=== PATIENT | male | born 1955 | race Caucasian/White ===

== ENCOUNTER 2018-10-24 10:25 | Inpatient (IN) | payer MEDICAID ==
[~2018-10-24] VITALS: Ht 193 cm; Wt 100.7 kg
--- NOTE | 2018-10-24 10:31 | NUR ---
BIB [facility]. Pt extremely tremulous. Reports last drink of alcohol yesterday. Nl intake 12pk beer/daily. +nausea & anxiety. Hx withdrawal sz. Sz precautions IP,cardiac, NIbP & Spo2 monitors & IV NSL placed.
[2018-10-24] MEDS ORDERED: SODIUM CHLORIDE 0.9% 1,000 ML IV ONE (10:45)
[2018-10-24] MEDS ORDERED: LORazepam 2 MG/ML, 1ML ONE (10:46)
[2018-10-24] MEDS: LORazepam 2 MG/ML, 1ML IVPush PRN ×3 (10:54→22:39)
--- NOTE | 2018-10-24 10:54 | NUR ---
Ativan IV given as per emar.
[2018-10-24] MEDS ORDERED: THIAMINE 100 MG in SODIUM CHLORIDE 0.9% 50 ML IVPB ONE (11:00)
[2018-10-24] MEDS ORDERED: SODIUM CHLORIDE FLUSH 10ML SYR IVF ONE (11:00)
--- NOTE | 2018-10-24 11:29 | NUR ---
Tremors improved. Pt sleeping & oxygen saturations during rest in 80's. Placed on nasal cannula to maintain >94%
[2018-10-24 11:34] LABS: BASOPHILS # (AUTO) 0.15 x10^3/uL (0-0.1); BASOPHILS % (AUTO) 2 % (0-1); EOSINOPHILS # (AUTO) 0.04 x10^3/uL (0-0.4); EOSINOPHILS % (AUTO) 0 % (1-7); LYMPHOCYTES % (AUTO) 17 % (22-44); MD NO; MEAN CORPUSCULAR HGB CONC 33.7 g/dL (33.2-36.2); MEAN CORPUSCULAR VOLUME 94.7 fL (81-97); MEAN PLATELET VOLUME 8.2 fL (7.4-10.4); MONOCYTES # (AUTO) 0.51 x10^3/uL (0.2-0.8); MONOCYTES % (AUTO) 6 % (2-9); NEUTROPHILS # (AUTO) 6.82 x10^3/uL (1.8-6.8); NEUTROPHILS % (AUTO) 76 % (42-75); PLATELET COUNT 163 x10^3/uL (130-400); RED BLOOD COUNT 4.77 x10^6/uL (4.38-5.82); RED CELL DISTRIBUTION WIDTH 13.9 % (9.4-14.8)
[2018-10-24 11:40] LABS: ALANINE AMINOTRANSFERASE 41 U/L (12-78); ALBUMIN 3.5 g/dL (3.4-5.0); ANION GAP 12 mmol/L (5-15); CALCIUM 8.3 mg/dL (8.5-10.1); CHLORIDE 98 mmol/L (98-107); CREATININE 0.69 mg/dL (0.7-1.3)
[2018-10-24 11:41] LABS: ALKALINE PHOSPHATASE 166 U/L (45-117); BILIRUBIN,TOTAL 1.2 mg/dL (0.2-1.0); TOTAL PROTEIN 7.5 g/dL (6.4-8.2)
[2018-10-24] MEDS ORDERED: CHLORDIAZEPOXIDE 25 MG CAPSULE PO ONE (12:00)
[2018-10-24] MEDS ORDERED: CHLORDIAZEPOXIDE 25 MG CAPSULE ONE (12:11)
--- NOTE | 2018-10-24 12:18 | NUR ---
po librium given, pt is still tremulous when reaching for items, but improved from arrival. VSS.
[2018-10-24] MEDS ORDERED: DIAZEPAM 5 MG/ML, 2ML IV ONE (12:30)
--- NOTE | 2018-10-24 13:13 | NUR ---
Report to MAILE Decker tele 2.
[2018-10-24 14:00] VITALS: BP 136/88
[2018-10-24] MEDS ORDERED: LORazepam 2 MG/ML, 1ML IVPush ONE (14:30)
[2018-10-24] MEDS ORDERED: ONDANSETRON 2MG/ML, 2ML IVPush PRN (14:30)
[2018-10-24] MEDS ORDERED: ACETAMINOPHEN 325 MG TABLET PO PRN (14:30)
[2018-10-24] MEDS ORDERED: LORazepam 2 MG/ML, 1ML IVPush PRN (14:30)
[2018-10-24] MEDS: GABAPENTIN 100 MG CAPSULE PO SCH ×3 (14:44→20:29)
[2018-10-24] MEDS ORDERED: MAGNESIUM SULFATE PMX 2GM/50ML 50 ML IV ONE (15:00)
[2018-10-24] MEDS: POTASSIUM CHLORIDE 20 MEQ, MAGNESIUM SULFATE 1 GM, THIAMINE 200 MG, FOLIC ACID 1 MG, MV... IV SCH (15:58)
[2018-10-24] MEDS ORDERED: ASPI-515 PO (18:01)
[2018-10-24] MEDS ORDERED: METO-93 PO (18:01)
[2018-10-24 20:08] VITALS: BP 156/93
[2018-10-24] MEDS: CHLORDIAZEPOXIDE 25 MG CAPSULE PO SCH (20:29)
[2018-10-24] MEDS: SODIUM CHLORIDE 0.9% 1,000 ML IV SCH (22:41)
[2018-10-25] VITALS (10 sets, daily range): BP systolic 145–190; BP diastolic 83–114
[2018-10-25] MEDS: LABETALOL 5 MG/ML SYRINGE IVPush PRN ×2 (01:58→09:37)
[2018-10-25] MEDS: LORazepam 2 MG/ML, 1ML IVPush PRN ×6 (02:01→17:04)
[2018-10-25 05:35] LABS: BASOPHILS # (AUTO) 0.04 x10^3/uL (0-0.1); BASOPHILS % (AUTO) 1 % (0-1); EOSINOPHILS # (AUTO) 0.09 x10^3/uL (0-0.4); EOSINOPHILS % (AUTO) 1 % (1-7); LYMPHOCYTES # (AUTO) 0.91 x10^3/uL (1-3.4); LYMPHOCYTES % (AUTO) 13 % (22-44); MD NO; MEAN CORPUSCULAR HEMOGLOBIN 32.6 pg (27.5-34.5); MEAN CORPUSCULAR HGB CONC 33.8 g/dL (33.2-36.2); MEAN CORPUSCULAR VOLUME 96.2 fL (81-97); MEAN PLATELET VOLUME 8.5 fL (7.4-10.4); MONOCYTES # (AUTO) 0.44 x10^3/uL (0.2-0.8); MONOCYTES % (AUTO) 6 % (2-9); NEUTROPHILS # (AUTO) 5.62 x10^3/uL (1.8-6.8); NEUTROPHILS % (AUTO) 79 % (42-75); PLATELET COUNT 110 x10^3/uL (130-400); RED BLOOD COUNT 4.12 x10^6/uL (4.38-5.82); RED CELL DISTRIBUTION WIDTH 14.1 % (9.4-14.8)
[2018-10-25 05:45] LABS: CHLORIDE 103 mmol/L (98-107)
[2018-10-25 06:05] LABS: ANION GAP 7 mmol/L (5-15); CREATININE 0.62 mg/dL (0.7-1.3)
[2018-10-25] MEDS: GABAPENTIN 100 MG CAPSULE PO SCH ×4 (06:31→19:34)
[2018-10-25] MEDS: SODIUM CHLORIDE 0.9% 1,000 ML IV SCH ×2 (06:31→21:30)
[2018-10-25] MEDS: CHLORDIAZEPOXIDE 25 MG CAPSULE PO SCH ×3 (07:41→19:34)
[2018-10-25] MEDS: NICOTINE 14MG/24 HR PATCH.TD24 TD SCH (13:30)
[2018-10-25] MEDS: POTASSIUM CHLORIDE 20 MEQ, MAGNESIUM SULFATE 1 GM, THIAMINE 200 MG, FOLIC ACID 1 MG, MV... IV SCH (13:50)
[2018-10-25] MEDS: hydrALAzine 20 MG/ML, 1ML IVPush PRN (20:36)
[2018-10-26] VITALS (12 sets, daily range): BP systolic 124–215; BP diastolic 74–133
[2018-10-26] MEDS: LABETALOL 5 MG/ML SYRINGE IVPush PRN ×2 (01:31→23:40)
[2018-10-26] MEDS: hydrALAzine 20 MG/ML, 1ML IVPush PRN (02:48)
[2018-10-26] MEDS: LORazepam 2 MG/ML, 1ML IVPush PRN ×3 (03:27→23:18)
[2018-10-26] MEDS: SODIUM CHLORIDE 0.9% 1,000 ML IV SCH (05:20)
[2018-10-26] MEDS: GABAPENTIN 100 MG CAPSULE PO SCH ×4 (05:21→20:00)
[2018-10-26] MEDS: METOPROLOL SUCCINATE 50 MG TAB.ER.24H PO SCH (05:21)
[2018-10-26] MEDS: CHLORDIAZEPOXIDE 25 MG CAPSULE PO SCH ×3 (08:49→20:00)
[2018-10-26 09:04] LABS: ALANINE AMINOTRANSFERASE 44 U/L (12-78); ANION GAP 7 mmol/L (5-15); CALCIUM 8.1 mg/dL (8.5-10.1); CHLORIDE 105 mmol/L (98-107); CREATININE 0.49 mg/dL (0.7-1.3)
[2018-10-26 09:06] LABS: ALKALINE PHOSPHATASE 156 U/L (45-117); BILIRUBIN,TOTAL 0.7 mg/dL (0.2-1.0); TOTAL PROTEIN 6.5 g/dL (6.4-8.2)
[2018-10-26] MEDS ORDERED: LABETALOL 5MG/ML, 20ML IVPush PRN (10:30)
[2018-10-26] MEDS ORDERED: ENALAPRILAT 1.25 MG/ML, 2ML IVPush PRN (10:30)
[2018-10-26] MEDS ORDERED: hydrALAzine 20 MG/ML, 1ML IVPush PRN (10:30)
[2018-10-26] MEDS: NICOTINE 14MG/24 HR PATCH.TD24 TD SCH (10:38)
[2018-10-26] MEDS: POTASSIUM CHLORIDE 20 MEQ, MAGNESIUM SULFATE 1 GM, THIAMINE 200 MG, FOLIC ACID 1 MG, MV... IV SCH (14:38)
[2018-10-26] MEDS: LISINOPRIL 10 MG TABLET PO SCH (20:00)
[2018-10-26] MEDS: THIAMINE 100MG TABLET PO SCH (20:00)
[2018-10-26] MEDS: ENALAPRILAT 1.25 MG/ML, 2ML IVPush PRN (20:01)
[2018-10-27] VITALS (7 sets, daily range): BP systolic 142–187; BP diastolic 79–108
[2018-10-27] MEDS: LORazepam 2 MG/ML, 1ML IVPush PRN (01:49)
[2018-10-27] MEDS: ENALAPRILAT 1.25 MG/ML, 2ML IVPush PRN (02:35)
[2018-10-27] MEDS ORDERED: LABETALOL 5 MG/ML SYRINGE IVPush PRN (04:00)
[2018-10-27] MEDS: GABAPENTIN 100 MG CAPSULE PO SCH ×4 (05:10→20:50)
[2018-10-27] MEDS: METOPROLOL SUCCINATE 50 MG TAB.ER.24H PO SCH (05:10)
[2018-10-27] MEDS: CHLORDIAZEPOXIDE 25 MG CAPSULE PO SCH ×3 (08:52→20:50)
[2018-10-27] MEDS: THIAMINE 100MG TABLET PO SCH ×2 (08:52→20:50)
[2018-10-27] MEDS: NICOTINE 14MG/24 HR PATCH.TD24 TD SCH (08:53)
[2018-10-27] MEDS: LISINOPRIL 10 MG TABLET PO SCH ×2 (08:53→20:50)
[2018-10-27] MEDS ORDERED: THIA100T67 PO (13:53)
[2018-10-27] MEDS ORDERED: LISI-167 PO ×2 (13:53)
[2018-10-27] MEDS ORDERED: LORazepam 1MG TABLET PO PRN (15:30)
[2018-10-28 02:00] VITALS: BP 187/103
[2018-10-28] MEDS: ENALAPRILAT 1.25 MG/ML, 2ML IVPush PRN (02:08)
[2018-10-28 03:09] VITALS: BP 173/90
[2018-10-28 04:59] VITALS: BP 160/83
[2018-10-28] MEDS: GABAPENTIN 100 MG CAPSULE PO SCH ×2 (05:40→09:13)
[2018-10-28] MEDS: METOPROLOL SUCCINATE 50 MG TAB.ER.24H PO SCH (05:40)
[2018-10-28 07:20] VITALS: BP 183/90
[2018-10-28] MEDS ORDERED: LISINOPRIL 20 MG TABLET PO SCH (09:00)
[2018-10-28] MEDS ORDERED: AMLODIPINE 10 MG TAB PO SCH (09:00)
[2018-10-28] MEDS: CHLORDIAZEPOXIDE 25 MG CAPSULE PO SCH (09:14)
[2018-10-28] MEDS: NICOTINE 14MG/24 HR PATCH.TD24 TD SCH (09:15)
[2018-10-28] MEDS: THIAMINE 100MG TABLET PO SCH (09:15)
[2018-10-28 11:48] VITALS: BP 150/89
[2018-10-28] MEDS ORDERED: AMLO10TA8 PO (12:20)
[2018-10-28] MEDS ORDERED: LISI-170 PO (13:18)
== END 2018-10-28 13:54 | DRG 897 ==
LOC: ED 11:30 → EDIP 12:51 → 4WST 13:54
PROVIDERS: ADMIT Hospitalist; ATTEND Hospitalist
DX: F10.239 Alcohol dependence with withdrawal, unspecified (principal); E87.1 Hypo-osmolality and hyponatremia; E83.42 Hypomagnesemia; I10 Essential (primary) hypertension; Z91.19 Patient's noncompliance with other medical treatment and regimen; F10.10 Alcohol abuse, uncomplicated
CPT/HCPCS: 36415; 80048; 80053; 80307; 82140; 83735; 84100; 84443; 85025; 96374; 99285; G0378; J3411; J3475; J3480; J0360; J2060; J7030

== ENCOUNTER 2019-01-28 10:33 | Inpatient (IN) | payer MEDICAID ==
[~2019-01-28] VITALS: Ht 193 cm; Wt 90.0 kg
[~2019-01-28 10:33] MED LIST: AMLO10TA8 PO; ASPI-515 PO; LISI-167 PO; LISI-170 PO; METO-93 PO; THIA100T67 PO
[2019-01-28] MEDS ORDERED: HYDR25CA PO (10:56)
--- NOTE | 2019-01-28 10:56 | NUR ---
PATIENT BIB [facility] FOR BINGE DRINKING/ETOH ABUSE, PATIENT HAVING A HARD TIME AMBULATING PER EMS. GENERALIZED BUG BITES TO ENTIRE BODY. LAST DRINK 24 HRS AGO, 15+ BEERS YEST. VISIBLE TREMORS TO UPPER EXT. 18G RT WRIST ESTABLISHED BY EMS, ZOFRAN/500ML IVF GIVEN EN ROUTE. PATIENT BROUGHT TO DECON ROOM AND NOW IN ROOM 40. ASSUMED CARE OF PATIENT AT THIS TIME. CORPORATE SAFETY COORDINATOR ON PATIENT, NADN. AWAITING FURTHER ORDERS. CALL LIGHT WITHIN REACH.
[2019-01-28] MEDS ORDERED: THIAMINE 100MG TABLET ONE ×2 (11:16→14:35)
--- NOTE | 2019-01-28 11:19 | NUR ---
EMT AT BEDSIDE FOR EKG, LAB AT BEDSIDE FOR LABS. MEDICATION ADMINISTERED PER ORDER.
[2019-01-28] MEDS ORDERED: THIAMINE 100MG TABLET PO ONE (11:30)
[2019-01-28 11:50] LABS: BASOPHILS # (AUTO) 0.01 x10^3/uL (0-0.1); BASOPHILS % (AUTO) 0 % (0-1); EOSINOPHILS # (AUTO) 0.02 x10^3/uL (0-0.4); EOSINOPHILS % (AUTO) 0 % (1-7); LYMPHOCYTES # (AUTO) 0.85 x10^3/uL (1-3.4); LYMPHOCYTES % (AUTO) 7 % (22-44); MD NO; MEAN CORPUSCULAR HEMOGLOBIN 31.3 pg (27.5-34.5); MEAN CORPUSCULAR HGB CONC 33.9 g/dL (33.2-36.2); MEAN CORPUSCULAR VOLUME 92.4 fL (81-97); MEAN PLATELET VOLUME 7.9 fL (7.4-10.4); MONOCYTES # (AUTO) 0.54 x10^3/uL (0.2-0.8); MONOCYTES % (AUTO) 5 % (2-9); NEUTROPHILS # (AUTO) 10.69 x10^3/uL (1.8-6.8); NEUTROPHILS % (AUTO) 88 % (42-75); PLATELET COUNT 268 x10^3/uL (130-400); RED BLOOD COUNT 4.41 x10^6/uL (4.38-5.82); RED CELL DISTRIBUTION WIDTH 13.8 % (9.4-14.8)
[2019-01-28 11:51] LABS: HCT (SEDRATE) 41.4 % (39.2-51.8)
[2019-01-28 11:54] LABS: INTERNATIONAL NORMALIZED RATIO 1.01 (0.93-1.1); PROTHROMBIN TIME 10.6 Seconds (9.6-11.5)
[2019-01-28 11:57] LABS: ALANINE AMINOTRANSFERASE 35 U/L (12-78); ALBUMIN 3.6 g/dL (3.4-5.0); ANION GAP 10 mmol/L (5-15); CALCIUM 8.3 mg/dL (8.5-10.1); CHLORIDE 92 mmol/L (98-107); CREATININE 0.65 mg/dL (0.7-1.3)
[2019-01-28 12:02] LABS: ALKALINE PHOSPHATASE 159 U/L (45-117); BILIRUBIN,TOTAL 1.1 mg/dL (0.2-1.0); TOTAL PROTEIN 7.2 g/dL (6.4-8.2); TROPONIN I < 0.015 ng/mL (0.000-0.045)
[2019-01-28] MEDS ORDERED: ONDANSETRON 2MG/ML, 2ML ONE (12:52)
[2019-01-28] MEDS ORDERED: LORazepam 2 MG/ML, 1ML ONE (12:52)
[2019-01-28] MEDS ORDERED: ONDANSETRON 2MG/ML, 2ML IVPush ONE (13:00)
[2019-01-28] MEDS ORDERED: SODIUM CHLORIDE 0.9% 1,000ML IVBOLUS ONE (13:00)
[2019-01-28] MEDS ORDERED: LORazepam 2 MG/ML, 1ML IVPush ONE (13:00)
[2019-01-28] MEDS ORDERED: PERMETHRIN CRM 5%, 60GM TP ONE (13:00)
--- NOTE | 2019-01-28 13:30 | NUR ---
contract technical writer attempted to road test patient. patient able to walk a few step but started shaking systemically and began to vomit (etoh withdrawal per writers assessment)-reports last drink 2 days ago. usuually drinks 12 beers a day provider made aware-to medicate w/ ativan/zofran
--- NOTE | 2019-01-28 13:37 | NUR ---
Medicated per emar Vitals stable on cardiac exercise specialist provider to bedside for re-eval- will attempt to road test again shortly
--- NOTE | 2019-01-28 14:36 | NUR ---
repeat road test unsuccessful as well. Process Automation Engineer had to shake patient awake (ativan)-but once he sits up he becomes 10/10 tremoulous Provider made aware ivf/b vitamin administered per emar cream requested from pharmacy
--- NOTE | 2019-01-28 14:54 | NUR ---
Bedside SBAR report received from RNDany. Pt with wet beddingDany to change pt's linens. Pt aware of plan for admit.
[2019-01-28] MEDS ORDERED: LORazepam 1MG TABLET PO ONE (15:00)
--- NOTE | 2019-01-28 15:12 | NUR ---
TRIP RIDER, Annika, at bedside to evaluate pt for admission.
[2019-01-28] MEDS ORDERED: POLYETHYLENE GLYCOL 17 GM PACKET PO PRN (15:30)
[2019-01-28] MEDS ORDERED: ENALAPRILAT 1.25 MG/ML, 2ML IVPush PRN (15:30)
[2019-01-28] MEDS ORDERED: LORazepam 2 MG/ML, 1ML IV PRN ×3 (15:30)
[2019-01-28] MEDS ORDERED: LORazepam 1MG TABLET PO PRN (15:30)
[2019-01-28] MEDS ORDERED: ONDANSETRON 2MG/ML, 2ML IVPush PRN (15:30)
[2019-01-28] MEDS ORDERED: LABETALOL 5MG/ML, 20ML IVPush PRN (15:30)
[2019-01-28] MEDS ORDERED: ONDANSETRON ODT 4 MG PO PRN (15:30)
[2019-01-28] MEDS ORDERED: BISACODYL 10 MG SUPP PR PRN (15:30)
--- NOTE | 2019-01-28 15:45 | NUR ---
XR at bedside.
--- NOTE | 2019-01-28 16:02 | NUR ---
Pt sleeping on gurney, remains on all monitors. VSS.
--- NOTE | 2019-01-28 16:33 | NUR ---
Telephone SBAR report given to RNLeobardo. Pt made aware of new room assignment.
[2019-01-28] MEDS ORDERED: LORazepam 1MG TABLET ONE (16:37)
[2019-01-28 17:09] VITALS: BP 193/94
[2019-01-28] MEDS: SODIUM CHLORIDE 0.9% 1,000 ML IV SCH (17:20)
[2019-01-28] MEDS: NICOTINE 21 MG/24 HR PATCH.TD24 TD SCH (17:23)
[2019-01-28] MEDS: ENOXAPARIN 40 MG/0.4 ML SQ SCH (17:24)
[2019-01-28 18:19] LABS: MICROSCOPIC NOT IND
[2019-01-28 18:28] LABS: CULTURE INDICATED? NO
[2019-01-28 18:29] LABS: AMPHETAMINE SCREEN, URINE Negative (Negative); BARBITURATE SCREEN, URINE Negative (Negative); BENZODIAZEPINE SCREEN, URINE Negative (Negative); CANNABINOID SCREEN, URINE Negative (Negative); COCAINE SCREEN, URINE Negative (Negative); METHADONE SCREEN, URINE Negative (Negative); OPIATE SCREEN, URINE Negative (Negative)
[2019-01-28 21:32] VITALS: BP 149/92
[2019-01-28] MEDS: FOLIC ACID 1 MG, THIAMINE 200 MG, MVI ADULT 10 ML in D5%-0.9% NACL 1,000 ML IV SCH (22:40)
[2019-01-29 00:35] VITALS: BP 157/87
[2019-01-29 03:48] LABS: ALBUMIN 3.1 g/dL (3.4-5.0); ANION GAP 6 mmol/L (5-15); BASOPHILS # (AUTO) 0.04 x10^3/uL (0-0.1); BASOPHILS % (AUTO) 1 % (0-1); CALCIUM 8.2 mg/dL (8.5-10.1); CHLORIDE 99 mmol/L (98-107); EOSINOPHILS # (AUTO) 0.33 x10^3/uL (0-0.4); EOSINOPHILS % (AUTO) 4 % (1-7); LYMPHOCYTES % (AUTO) 10 % (22-44); MD NO; MEAN CORPUSCULAR HEMOGLOBIN 31.1 pg (27.5-34.5); MEAN CORPUSCULAR HGB CONC 32.9 g/dL (33.2-36.2); MEAN CORPUSCULAR VOLUME 94.7 fL (81-97); MEAN PLATELET VOLUME 8.1 fL (7.4-10.4); MONOCYTES # (AUTO) 0.36 x10^3/uL (0.2-0.8); MONOCYTES % (AUTO) 4 % (2-9); NEUTROPHILS # (AUTO) 7.34 x10^3/uL (1.8-6.8); NEUTROPHILS % (AUTO) 82 % (42-75); PLATELET COUNT 223 x10^3/uL (130-400); RED BLOOD COUNT 4.22 x10^6/uL (4.38-5.82); RED CELL DISTRIBUTION WIDTH 13.5 % (9.4-14.8)
[2019-01-29 04:00] LABS: ALANINE AMINOTRANSFERASE 31 U/L (12-78); ALKALINE PHOSPHATASE 151 U/L (45-117); BILIRUBIN,TOTAL 1.3 mg/dL (0.2-1.0); CREATININE 0.67 mg/dL (0.7-1.3); TOTAL PROTEIN 6.5 g/dL (6.4-8.2)
[2019-01-29 07:46] VITALS: BP 198/96
[2019-01-29] MEDS: SODIUM CHLORIDE 0.9% 1,000 ML IV SCH ×3 (08:00→23:29)
[2019-01-29] MEDS: LORazepam 1MG TABLET PO PRN ×2 (08:08→16:30)
[2019-01-29 13:00] VITALS: BP 155/86
[2019-01-29] MEDS: NICOTINE 21 MG/24 HR PATCH.TD24 TD SCH (16:28)
[2019-01-29] MEDS: ENOXAPARIN 40 MG/0.4 ML SQ SCH (16:28)
[2019-01-29 17:30] VITALS: BP 157/89
[2019-01-29 20:09] VITALS: BP 150/83
[2019-01-29] MEDS: DIPHENHYDRAMINE 25 MG CAPSULE PO PRN (20:57)
[2019-01-29] MEDS: ACETAMINOPHEN 325 MG TABLET PO PRN (20:57)
[2019-01-29] MEDS: FOLIC ACID 1 MG, THIAMINE 200 MG, MVI ADULT 10 ML in D5%-0.9% NACL 1,000 ML IV SCH (23:29)
[2019-01-30 00:43] VITALS: BP 153/88
[2019-01-30 04:54] VITALS: BP 174/92
[2019-01-30 06:13] LABS: CHLORIDE 104 mmol/L (98-107)
[2019-01-30 06:27] LABS: ANION GAP 6 mmol/L (5-15); CALCIUM 8.1 mg/dL (8.5-10.1)
[2019-01-30 06:28] LABS: ALANINE AMINOTRANSFERASE 28 U/L (12-78); ALBUMIN 2.7 g/dL (3.4-5.0); ALKALINE PHOSPHATASE 128 U/L (45-117); BILIRUBIN,TOTAL 0.7 mg/dL (0.2-1.0); TOTAL PROTEIN 5.9 g/dL (6.4-8.2)
[2019-01-30 08:27] VITALS: BP 176/89
[2019-01-30] MEDS: FOLIC ACID 1 MG TABLET PO SCH (08:28)
[2019-01-30] MEDS: MULTIVITAMIN 1 TABLET PO SCH (08:28)
[2019-01-30] MEDS: AMLODIPINE 5 MG TABLET PO SCH ×2 (08:28→20:46)
[2019-01-30] MEDS: THIAMINE 100MG TABLET PO SCH (08:28)
[2019-01-30] MEDS: LORazepam 0.5MG TABLET PO PRN ×2 (08:37→18:45)
[2019-01-30] MEDS: ACETAMINOPHEN 325 MG TABLET PO PRN (08:37)
[2019-01-30 10:28] VITALS: BP 163/87
[2019-01-30 13:10] VITALS: BP 163/86
[2019-01-30] MEDS ORDERED: SODIUM CHLORIDE 0.9% 1,000 ML IV SCH (15:19)
[2019-01-30] MEDS: ENOXAPARIN 40 MG/0.4 ML SQ SCH (16:03)
[2019-01-30] MEDS: NICOTINE 21 MG/24 HR PATCH.TD24 TD SCH (16:03)
[2019-01-30] MEDS: DOCUSATE 100 MG CAPSULE PO PRN (17:33)
[2019-01-30 20:14] VITALS: BP 164/89
[2019-01-30] MEDS: DIPHENHYDRAMINE 25 MG CAPSULE PO PRN (22:19)
[2019-01-31 00:43] VITALS: BP 151/89
[2019-01-31 05:29] LABS: ALANINE AMINOTRANSFERASE 43 U/L (12-78); ALBUMIN 2.9 g/dL (3.4-5.0); ANION GAP 6 mmol/L (5-15); CALCIUM 8.3 mg/dL (8.5-10.1); CHLORIDE 104 mmol/L (98-107)
[2019-01-31 05:32] LABS: ALKALINE PHOSPHATASE 132 U/L (45-117); BILIRUBIN,TOTAL 0.8 mg/dL (0.2-1.0); CREATININE 0.69 mg/dL (0.7-1.3); TOTAL PROTEIN 6.3 g/dL (6.4-8.2)
[2019-01-31] MEDS: DIPHENHYDRAMINE 25 MG CAPSULE PO PRN ×2 (06:29→21:14)
[2019-01-31 06:56] VITALS: BP 139/83
[2019-01-31] MEDS: LORazepam 0.5MG TABLET PO PRN (07:03)
[2019-01-31] MEDS: DOCUSATE 100 MG CAPSULE PO PRN (07:03)
[2019-01-31] MEDS: THIAMINE 100MG TABLET PO SCH (08:52)
[2019-01-31] MEDS: MULTIVITAMIN 1 TABLET PO SCH (08:52)
[2019-01-31] MEDS: FOLIC ACID 1 MG TABLET PO SCH (08:52)
[2019-01-31] MEDS: AMLODIPINE 5 MG TABLET PO SCH ×2 (08:53→21:14)
[2019-01-31 12:37] VITALS: BP 145/83
[2019-01-31] MEDS: HYDROXYZINE PAMOATE 25MG CAP PO PRN (14:47)
[2019-01-31] MEDS: ENOXAPARIN 40 MG/0.4 ML SQ SCH (15:27)
[2019-01-31] MEDS: NICOTINE 21 MG/24 HR PATCH.TD24 TD SCH (15:28)
[2019-01-31 19:14] VITALS: BP 160/89
[2019-01-31] MEDS: ACETAMINOPHEN 325 MG TABLET PO PRN (21:14)
[2019-02-01 01:27] VITALS: BP 164/90
[2019-02-01] MEDS: HYDROXYZINE PAMOATE 25MG CAP PO PRN (03:34)
[2019-02-01 06:56] VITALS: BP 135/75
[2019-02-01] MEDS ORDERED: AMLO-150 PO (08:28)
[2019-02-01] MEDS ORDERED: THIA100T67 PO (08:28)
[2019-02-01] MEDS: THIAMINE 100MG TABLET PO SCH (09:33)
[2019-02-01] MEDS: MULTIVITAMIN 1 TABLET PO SCH (09:33)
[2019-02-01] MEDS: AMLODIPINE 5 MG TABLET PO SCH (09:33)
[2019-02-01] MEDS: FOLIC ACID 1 MG TABLET PO SCH (09:33)
== END 2019-02-01 10:51 | disposition home or self-care (01) | DRG 641 ==
LOC: ED 14:43 → EDIP 14:44 → ED 15:31 → 4EST 16:51
PROVIDERS: ADMIT Internal Medicine; ATTEND Internal Medicine
DX: E86.0 Dehydration (principal); F10.239 Alcohol dependence with withdrawal, unspecified; E87.1 Hypo-osmolality and hyponatremia; B86 Scabies; D72.829 Elevated white blood cell count, unspecified; F10.229 Alcohol dependence with intoxication, unspecified; F17.210 Nicotine dependence, cigarettes, uncomplicated; F41.9 Anxiety disorder, unspecified; I10 Essential (primary) hypertension; K59.00 Constipation, unspecified; Y90.6 Blood alcohol level of 120-199 mg/100 ml; Z91.19 Patient's noncompliance with other medical treatment and regimen; L29.9 Pruritus, unspecified
CPT/HCPCS: 36415; 84145; 96361; 99285; J7042; 71045; 80053; 80307; 81003; 83735; 84100; 84295; 84443; 84484; 85025; 85610; 85651; 86140; 93005; 96374; 96375; G0378; J1650; J2405; J3411; J2060; J7030; Q0163

== ENCOUNTER 2019-04-09 05:42 | Emergency (ER) | payer MEDICAID ==
[~2019-04-09] VITALS: Ht 193 cm; Wt 94.5 kg
[2019-04-09 12:52] VITALS: BP 118/72
== END 2019-04-09 17:15 | disposition home or self-care (01) ==
LOC: ED 06:30 → SUATTDRO 17:08 → ED 17:15
PROVIDERS: ATTEND Internal Medicine
DX: R07.89 Other chest pain (principal); F10.10 Alcohol abuse, uncomplicated; I10 Essential (primary) hypertension; F17.200 Nicotine dependence, unspecified, uncomplicated; M79.673 Pain in unspecified foot; Y90.9 Presence of alcohol in blood, level not specified
CPT/HCPCS: 36415; 71045; 80053; 80307; 83880; 84484; 85025; 93005; 99284

== ENCOUNTER 2019-04-12 12:27 | Emergency (ER) | payer MEDICAID ==
[~2019-04-12] VITALS: Ht 193 cm; Wt 92.6 kg
[2019-04-12 17:41] VITALS: BP 140/94
== END 2019-04-12 18:32 | disposition home or self-care (01) ==
LOC: ED 15:54
DX: F10.129 Alcohol abuse with intoxication, unspecified (principal); R42 Dizziness and giddiness; I10 Essential (primary) hypertension; Z72.9 Problem related to lifestyle, unspecified; F17.200 Nicotine dependence, unspecified, uncomplicated
CPT/HCPCS: 36415; 80047; 80053; 83735; 85025; 93005; 99284

== ENCOUNTER 2019-08-21 02:33 | Emergency (ER) | payer MEDICAID ==
[~2019-08-21] VITALS: Ht 193 cm; Wt 95.0 kg
[~2019-08-21 02:33] MED LIST changes: +AMLO-150 PO; +AMOX1TAB12 PO; +HYDR25CA PO; +METO25TA35 PO
[2019-08-21 02:38] VITALS: BP 164/99
== END 2019-08-21 05:16 | disposition home or self-care (01) ==
LOC: ED 02:44
DX: F10.220 Alcohol dependence with intoxication, uncomplicated (principal); I10 Essential (primary) hypertension; Y90.0 Blood alcohol level of less than 20 mg/100 ml
CPT/HCPCS: 99283

== ENCOUNTER 2019-09-15 01:41 | Inpatient (IN) | payer MEDICAID ==
[~2019-09-15] VITALS: Ht 193 cm; Wt 101.2 kg
[2019-09-15] VITALS (7 sets, daily range): BP systolic 96–159; BP diastolic 58–91
[2019-09-15] MEDS ORDERED: DILTIAZEM 5 MG/ML, 5ML ONE (01:56)
[2019-09-15] MEDS ORDERED: DILTIAZEM 5 MG/ML, 5ML IV ONE (02:00)
[2019-09-15 02:22] LABS: BASOPHILS # (AUTO) 0.07 x10^3/uL (0-0.1); BASOPHILS % (AUTO) 1 % (0-1); EOSINOPHILS # (AUTO) 0.03 x10^3/uL (0-0.4); EOSINOPHILS % (AUTO) 0 % (1-7); LYMPHOCYTES # (AUTO) 1.66 x10^3/uL (1-3.4); LYMPHOCYTES % (AUTO) 14 % (22-44); MD NO; MEAN CORPUSCULAR HEMOGLOBIN 31.9 pg (27.5-34.5); MEAN CORPUSCULAR HGB CONC 32.9 g/dL (33.2-36.2); MEAN PLATELET VOLUME 8.3 fL (7.4-10.4); MONOCYTES # (AUTO) 0.88 x10^3/uL (0.2-0.8); MONOCYTES % (AUTO) 8 % (2-9); NEUTROPHILS % (AUTO) 78 % (42-75); PLATELET COUNT 507 x10^3/uL (130-400); RED BLOOD COUNT 3.47 x10^6/uL (4.38-5.82); RED CELL DISTRIBUTION WIDTH 17.3 % (9.4-14.8)
[2019-09-15 02:30] LABS: ALANINE AMINOTRANSFERASE 146 U/L (12-78); ALBUMIN 2.9 g/dL (3.4-5.0); ANION GAP 7 mmol/L (5-15); CALCIUM 8.8 mg/dL (8.5-10.1); CHLORIDE 110 mmol/L (98-107); CREATININE 1.09 mg/dL (0.7-1.3)
[2019-09-15 02:34] LABS: ALKALINE PHOSPHATASE 231 U/L (45-117); BILIRUBIN,TOTAL 0.4 mg/dL (0.2-1.0); TOTAL PROTEIN 7.2 g/dL (6.4-8.2); TROPONIN I 0.022 ng/mL (0.000-0.045)
[2019-09-15] MEDS ORDERED: FUROSEMIDE 100 MG/10 ML IV ONE (03:00)
[2019-09-15] MEDS ORDERED: FUROSEMIDE 40 MG/4 ML ONE (03:08)
--- NOTE | 2019-09-15 03:37 | NUR ---
ATTEMPTED TO CALL REPORT. RN BUSY
[2019-09-15] MEDS ORDERED: ACETAMINOPHEN 325 MG TABLET PO PRN (04:00)
[2019-09-15] MEDS ORDERED: DILTIAZEM 125 MG in SODIUM CHLORIDE 0.9% 100 ML IV SCH ×2 (04:00→13:30)
[2019-09-15] MEDS ORDERED: ONDANSETRON 2MG/ML, 2ML IVPush PRN (04:00)
[2019-09-15] MEDS ORDERED: ENOXAPARIN 100 MG/ML SQ ONE ×2 (05:30)
[2019-09-15] MEDS ORDERED: LISINOPRIL 20 MG TABLET PO SCH (09:00)
[2019-09-15] MEDS ORDERED: AMLODIPINE 10 MG TAB PO SCH (09:00)
[2019-09-15 11:22] LABS: TROPONIN I < 0.015 ng/mL (0.000-0.045)
[2019-09-15] MEDS: FUROSEMIDE 40 MG/4 ML IV SCH (17:51)
[2019-09-15] MEDS: ENOXAPARIN 100 MG/ML SQ SCH (17:52)
[2019-09-15] MEDS: DILTIAZEM 125 MG in SODIUM CHLORIDE 0.9% 100 ML IV SCH (18:25)
[2019-09-16 01:23] VITALS: BP 112/72
[2019-09-16] MEDS: DILTIAZEM 125 MG in SODIUM CHLORIDE 0.9% 100 ML IV SCH (04:41)
[2019-09-16] MEDS: ENOXAPARIN 100 MG/ML SQ SCH ×2 (05:42→18:00)
[2019-09-16 05:46] LABS: CHLORIDE 110 mmol/L (98-107)
[2019-09-16 05:57] LABS: ANION GAP 5 mmol/L (5-15); CALCIUM 8.7 mg/dL (8.5-10.1); CREATININE 0.97 mg/dL (0.7-1.3)
[2019-09-16 07:16] VITALS: BP 118/72
[2019-09-16 08:21] LABS: BASOPHILS # (AUTO) 0.12 x10^3/uL (0-0.1); BASOPHILS % (AUTO) 2 % (0-1); EOSINOPHILS # (AUTO) 0.22 x10^3/uL (0-0.4); EOSINOPHILS % (AUTO) 3 % (1-7); LYMPHOCYTES # (AUTO) 2.19 x10^3/uL (1-3.4); LYMPHOCYTES % (AUTO) 26 % (22-44); MD NO; MEAN CORPUSCULAR HEMOGLOBIN 31.8 pg (27.5-34.5); MEAN CORPUSCULAR HGB CONC 32.7 g/dL (33.2-36.2); MEAN CORPUSCULAR VOLUME 97.4 fL (81-97); MEAN PLATELET VOLUME 8.3 fL (7.4-10.4); MONOCYTES # (AUTO) 0.78 x10^3/uL (0.2-0.8); MONOCYTES % (AUTO) 9 % (2-9); NEUTROPHILS # (AUTO) 5.02 x10^3/uL (1.8-6.8); NEUTROPHILS % (AUTO) 60 % (42-75); PLATELET COUNT 450 x10^3/uL (130-400); RED BLOOD COUNT 3.27 x10^6/uL (4.38-5.82); RED CELL DISTRIBUTION WIDTH 17.3 % (9.4-14.8)
[2019-09-16] MEDS: FUROSEMIDE 40 MG/4 ML IV SCH ×2 (08:22→18:00)
[2019-09-16] MEDS ORDERED: DILTIAZEM 125 MG in SODIUM CHLORIDE 0.9% 100 ML IV SCH (13:30)
[2019-09-16 13:33] VITALS: BP 107/65
[2019-09-16] MEDS: CARVEDILOL 12.5 MG TABLET PO SCH (18:40)
[2019-09-16 18:43] VITALS: BP 117/71
[2019-09-16 19:22] VITALS: BP 110/80
[2019-09-17] VITALS (7 sets, daily range): BP systolic 113–149; BP diastolic 71–96
[2019-09-17] MEDS: ENOXAPARIN 100 MG/ML SQ SCH ×2 (05:24→17:35)
[2019-09-17] MEDS: CARVEDILOL 12.5 MG TABLET PO SCH ×2 (05:24→17:35)
[2019-09-17 05:40] LABS: CHLORIDE 107 mmol/L (98-107)
[2019-09-17 05:49] LABS: ALANINE AMINOTRANSFERASE 86 U/L (12-78); ALBUMIN 2.8 g/dL (3.4-5.0); ALKALINE PHOSPHATASE 178 U/L (45-117); ANION GAP 3 mmol/L (5-15); BILIRUBIN,TOTAL 0.6 mg/dL (0.2-1.0); CALCIUM 8.5 mg/dL (8.5-10.1); CREATININE 0.91 mg/dL (0.7-1.3); TOTAL PROTEIN 7.1 g/dL (6.4-8.2)
[2019-09-17 05:51] LABS: MEAN CORPUSCULAR HEMOGLOBIN 31.3 pg (27.5-34.5); MEAN CORPUSCULAR HGB CONC 32.3 g/dL (33.2-36.2); MEAN CORPUSCULAR VOLUME 96.9 fL (81-97); MEAN PLATELET VOLUME 9.2 fL (7.4-10.4); PLATELET COUNT 310 x10^3/uL (130-400); RED BLOOD COUNT 3.47 x10^6/uL (4.38-5.82); RED CELL DISTRIBUTION WIDTH 17.2 % (9.4-14.8)
[2019-09-17 06:27] LABS: BASOPHILS # (AUTO) 0.14 x10^3/uL (0-0.1); BASOPHILS % (AUTO) 2 % (0-1); EOSINOPHILS # (AUTO) 0.27 x10^3/uL (0-0.4); EOSINOPHILS % (AUTO) 4 % (1-7); LYMPHOCYTES # (AUTO) 1.53 x10^3/uL (1-3.4); LYMPHOCYTES % (AUTO) 20 % (22-44); MD SCAN; MONOCYTES # (AUTO) 0.68 x10^3/uL (0.2-0.8); MONOCYTES % (AUTO) 9 % (2-9); NEUTROPHILS # (AUTO) 4.86 x10^3/uL (1.8-6.8); NEUTROPHILS % (AUTO) 65 % (42-75)
[2019-09-17] MEDS: FUROSEMIDE 40 MG/4 ML IV SCH ×2 (08:10→17:35)
[2019-09-17] MEDS: POTASSIUM CHLORIDE 20 MEQ TAB.ER.PRT PO SCH (11:23)
[2019-09-18 00:01] VITALS: BP 138/91
[2019-09-18] MEDS: ENOXAPARIN 100 MG/ML SQ SCH (05:12)
[2019-09-18 05:13] VITALS: BP 156/98
[2019-09-18] MEDS: CARVEDILOL 12.5 MG TABLET PO SCH ×2 (05:13→17:20)
[2019-09-18 05:36] LABS: ANION GAP 7 mmol/L (5-15); CALCIUM 8.4 mg/dL (8.5-10.1); CHLORIDE 104 mmol/L (98-107)
[2019-09-18 06:58] LABS: BASOPHILS % (AUTO) 2 % (0-1); EOSINOPHILS # (AUTO) 0.32 x10^3/uL (0-0.4); EOSINOPHILS % (AUTO) 5 % (1-7); LYMPHOCYTES % (AUTO) 29 % (22-44); MD NO; MEAN CORPUSCULAR HEMOGLOBIN 31.6 pg (27.5-34.5); MEAN CORPUSCULAR HGB CONC 32.9 g/dL (33.2-36.2); MEAN CORPUSCULAR VOLUME 96.2 fL (81-97); MEAN PLATELET VOLUME 8.6 fL (7.4-10.4); MONOCYTES # (AUTO) 0.61 x10^3/uL (0.2-0.8); MONOCYTES % (AUTO) 11 % (2-9); NEUTROPHILS # (AUTO) 3.12 x10^3/uL (1.8-6.8); NEUTROPHILS % (AUTO) 53 % (42-75); PLATELET COUNT 457 x10^3/uL (130-400); RED BLOOD COUNT 3.54 x10^6/uL (4.38-5.82); RED CELL DISTRIBUTION WIDTH 16.4 % (9.4-14.8)
[2019-09-18 08:09] VITALS: BP 154/84
[2019-09-18] MEDS: POTASSIUM CHLORIDE 20 MEQ TAB.ER.PRT PO SCH (08:40)
[2019-09-18] MEDS: FUROSEMIDE 40 MG/4 ML IV SCH (08:40)
[2019-09-18 12:25] VITALS: BP 137/84
[2019-09-18 19:35] VITALS: BP 115/82
[2019-09-18] MEDS: APIXABAN 5 MG TABLET PO SCH (20:16)
[2019-09-19 03:06] VITALS: BP 138/86
[2019-09-19 06:07] VITALS: BP 159/99
[2019-09-19] MEDS: CARVEDILOL 12.5 MG TABLET PO SCH ×2 (06:09→18:05)
[2019-09-19 07:00] VITALS: BP 132/85
[2019-09-19] MEDS: POTASSIUM CHLORIDE 20 MEQ TAB.ER.PRT PO SCH (08:11)
[2019-09-19] MEDS: AMLODIPINE 5 MG TABLET PO SCH (08:11)
[2019-09-19] MEDS: APIXABAN 5 MG TABLET PO SCH ×2 (08:11→19:54)
[2019-09-19] MEDS: LISINOPRIL 20 MG TABLET PO SCH (08:12)
[2019-09-19] MEDS: FUROSEMIDE 20 MG TABLET PO SCH (08:12)
[2019-09-19 12:00] VITALS: BP 140/89
[2019-09-19 19:49] VITALS: BP 155/84
[2019-09-20 01:19] VITALS: BP 137/76
[2019-09-20 06:09] VITALS: BP 128/85
[2019-09-20] MEDS: CARVEDILOL 12.5 MG TABLET PO SCH (06:11)
[2019-09-20 06:48] VITALS: BP 133/75
[2019-09-20] MEDS: POTASSIUM CHLORIDE 20 MEQ TAB.ER.PRT PO SCH (09:16)
[2019-09-20] MEDS: FUROSEMIDE 20 MG TABLET PO SCH (09:16)
[2019-09-20] MEDS: AMLODIPINE 5 MG TABLET PO SCH (09:16)
[2019-09-20] MEDS: APIXABAN 5 MG TABLET PO SCH (09:17)
[2019-09-20] MEDS: LISINOPRIL 20 MG TABLET PO SCH (09:17)
[2019-09-20] MEDS ORDERED: CARV12.52 PO (11:52)
[2019-09-20] MEDS ORDERED: APIX5TAB PO (11:52)
[2019-09-20] MEDS ORDERED: FURO20TA3 PO (11:52)
[2019-09-20] MEDS ORDERED: LISI-170 PO (11:52)
[2019-09-20] MEDS ORDERED: AMLO-150 PO (11:52)
[2019-09-20] MEDS ORDERED: HYDR25CA PO (11:52)
[2019-09-20] MEDS ORDERED: POTA20TA6 PO (11:52)
[2019-09-20 12:28] VITALS: BP 146/89
== END 2019-09-20 13:11 | disposition home or self-care (01) | DRG 291 ==
LOC: ED 02:24 → EDIP 03:15 → 5SO 03:52 → DCLOUNGE 09-20 13:05
PROVIDERS: ADMIT Internal Medicine; ATTEND Hospitalist
DX: I11.0 Hypertensive heart disease with heart failure (principal); J96.01 Acute respiratory failure with hypoxia; D68.69 Other thrombophilia; I50.43 Acute on chronic combined systolic (congestive) and diastolic (congestive) heart failure; F10.20 Alcohol dependence, uncomplicated; Y90.9 Presence of alcohol in blood, level not specified; F17.200 Nicotine dependence, unspecified, uncomplicated; J44.9 Chronic obstructive pulmonary disease, unspecified; I48.0 Paroxysmal atrial fibrillation; R59.0 Localized enlarged lymph nodes; K76.1 Chronic passive congestion of liver; N28.89 Other specified disorders of kidney and ureter; Z79.899 Other long term (current) drug therapy; Z91.81 History of falling
CPT/HCPCS: 36415; 71045; 71275; 80048; 80053; 80307; 83735; 83880; 84484; 85025; 85379; 93005; 93306; 93970; 96374; 96375; 99291; G0378; J1650; J1940

== ENCOUNTER 2019-11-05 13:45 | Inpatient (IN) | payer MEDICAID ==
[~2019-11-05] VITALS: Ht 193 cm; Wt 98.4 kg
[~2019-11-05 13:45] MED LIST changes: +APIX5TAB PO; +CARV12.52 PO; +FURO20TA3 PO; +POTA20TA6 PO
[2019-11-05] MEDS ORDERED: SODIUM CHLORIDE FLUSH 10ML SYR IVF ONE (14:00)
--- NOTE | 2019-11-05 14:16 | NUR ---
PT SHAKY AND HYPOTHERMIC. WARMING MEASURES IN PLACE
[2019-11-05 14:31] LABS: BASOPHILS # (AUTO) 0.01 x10^3/uL (0-0.1); BASOPHILS % (AUTO) 0 % (0-1); EOSINOPHILS # (AUTO) 0.01 x10^3/uL (0-0.4); EOSINOPHILS % (AUTO) 0 % (1-7); LYMPHOCYTES # (AUTO) 0.63 x10^3/uL (1-3.4); LYMPHOCYTES % (AUTO) 9 % (22-44); MD NO; MEAN CORPUSCULAR HEMOGLOBIN 31.4 pg (27.5-34.5); MEAN CORPUSCULAR HGB CONC 32.6 g/dL (33.2-36.2); MEAN CORPUSCULAR VOLUME 96.2 fL (81-97); MEAN PLATELET VOLUME 8.1 fL (7.4-10.4); MONOCYTES # (AUTO) 0.18 x10^3/uL (0.2-0.8); MONOCYTES % (AUTO) 3 % (2-9); NEUTROPHILS % (AUTO) 87 % (42-75); PLATELET COUNT 239 x10^3/uL (130-400); RED BLOOD COUNT 4.66 x10^6/uL (4.38-5.82); RED CELL DISTRIBUTION WIDTH 15.5 % (9.4-14.8)
[2019-11-05 14:34] LABS: ALANINE AMINOTRANSFERASE 92 U/L (12-78); ALBUMIN 3.2 g/dL (3.4-5.0); ANION GAP 11 mmol/L (5-15); CALCIUM 8.1 mg/dL (8.5-10.1); CHLORIDE 96 mmol/L (98-107); CREATININE 1.39 mg/dL (0.7-1.3)
[2019-11-05 14:37] LABS: ALKALINE PHOSPHATASE 169 U/L (45-117); BILIRUBIN,TOTAL 1.1 mg/dL (0.2-1.0)
[2019-11-05] MEDS ORDERED: MAGNESIUM SULFATE 1 GM, THIAMINE 100 MG, FOLIC ACID 1 MG, MVI ADULT 10 ML in SODIUM CHL... IV ONE (15:00)
[2019-11-05] MEDS ORDERED: LORazepam 2 MG/ML, 1ML ONE ×4 (15:04→20:00)
[2019-11-05] MEDS: LORazepam 2 MG/ML, 1ML IVPush PRN ×4 (15:06→20:04)
--- NOTE | 2019-11-05 15:12 | NUR ---
MEDICATED FOR SHAKES. TEMPERATURE NORMAL AFTER WARMING MEASURES. AWAITING FLUIDS FROM PHARMACY. WILL CONTINUE TO MONITOR
[2019-11-05] MEDS ORDERED: SODIUM CHLORIDE 0.9% 1,000ML IVBOLUS ONE (16:30)
--- NOTE | 2019-11-05 16:33 | NUR ---
PT NO LONGER SHAKY. SECOND LITER OF IV FLUIDS STARTED. CONTINUE TO MONITOR
--- NOTE | 2019-11-05 17:53 | NUR ---
MD AT BEDSIDE. PT NOTED TO HAVE TREMORS AND MEDICATED NOTED ON MAR FOR SAME. MD AT BEDSIDE. TO SEE IF PT CAN AMBULATE AND IF HE CAN DISCHARGE WITH PRESCRIPTION FOR MEDS TO HELP WITH ALCOHOL WITHDRAWALS
--- NOTE | 2019-11-05 18:05 | NUR ---
CONTINUES TO HAVE TREMORS AND LEGS SHAKY AND WEAK. PT STANDS BUT THEN HAS TO STABILIZE HIMSELF ON WALL AND THEN BACK INTO GURNEY
--- NOTE | 2019-11-05 18:22 | NUR ---
ADDITIONALLY MEDICATED FOR CONTINUED TREMORS NOTED ON MAR
--- NOTE | 2019-11-05 18:59 | NUR ---
REPORT RECEIVED FROM MAILE BARRIOS. PLAN OF CARE DISCUSSED. PATIENT RECEIVED FOOD TRAY
--- NOTE | 2019-11-05 19:03 | NUR ---
PT PROVIDED SANDWICH TRAY. REMAINS SHAKY. REPORT TO SUNIL GR
--- NOTE | 2019-11-05 19:55 | NUR ---
CIWA COMPLETED, SECOND PIV PLACED.
--- NOTE | 2019-11-05 20:08 | NUR ---
PATIENT MEDICATED PER EMAR FOR TREMORS AND TACHYCARDIA
--- NOTE | 2019-11-05 20:22 | NUR ---
PATIENT UP IN [facility], TREMORS APPEAR TO BE LESSENED, DENIES NAUSEA AT THIS TIME, VSS, NAD, CALL LIGHT IN REACH
[2019-11-05] MEDS ORDERED: MVI ADULT 10 ML, FOLIC ACID 1 MG in D5%-0.9% NACL 1,000 ML IV SCH (20:28)
[2019-11-05] MEDS ORDERED: PHENOBARBITAL SODIUM IVPB ONE (20:30)
[2019-11-05] MEDS ORDERED: PHARMACY INSTRUCTION MC PRN ×4 (20:30)
[2019-11-05] MEDS ORDERED: PROMETHAZINE 25 MG/ML, 1ML IM PRN (20:30)
[2019-11-05] MEDS ORDERED: hydrALAzine 20 MG/ML, 1ML IVPush PRN (20:30)
[2019-11-05] MEDS ORDERED: ACETAMINOPHEN 325 MG TABLET PO PRN (20:30)
[2019-11-05] MEDS ORDERED: SODIUM CHLORIDE 0.9% IVPB ONE (20:30)
[2019-11-05] MEDS ORDERED: THIAMINE 200 MG in DEXTROSE 5% 50 ML IVPB ONE (20:30)
[2019-11-05] MEDS ORDERED: ONDANSETRON 2MG/ML, 2ML IVPush PRN (20:30)
--- NOTE | 2019-11-05 20:43 | NUR ---
REPORT GIVEN TO MAILE BARCENAS. PLAN OF CARE DISCUSSED
[2019-11-05] MEDS ORDERED: MAGNESIUM SULFATE PMX 2GM/50ML 50 ML IV ONE (21:00)
[2019-11-05] MEDS ORDERED: DEXTROSE 50%, 50ML SYRINGE IVPush PRN (21:00)
[2019-11-05] MEDS ORDERED: GLUCAGON 1 MG IM PRN (21:00)
[2019-11-05] MEDS ORDERED: DEXTROSE 4 GM TAB.CHEW PO PRN (21:00)
[2019-11-05] MEDS: INSULIN LISPRO 100 UNITS/ML, PEN SQ-INSULIN SCH (21:00)
[2019-11-05] MEDS: CARVEDILOL 12.5 MG TABLET PO SCH (22:00)
[2019-11-05] MEDS ORDERED: PHENOBARBITAL SODIUM IV ONE (22:30)
[2019-11-05] MEDS ORDERED: SODIUM CHLORIDE 0.9% IV ONE (22:30)
[2019-11-05] MEDS: SODIUM CHLORIDE FLUSH 10ML SYR IVF SCH (22:47)
[2019-11-05] MEDS: HEPARIN 5,000 UNITS/ML, 1ML SQ SCH (22:48)
[2019-11-06] MEDS ORDERED: SODIUM CHLORIDE 0.9% 1,000 ML IV SCH
[2019-11-06] MEDS ORDERED: PHENOBARBITAL SODIUM 65 MG/ML, 1ML IM SCH (03:30)
[2019-11-06 04:00] VITALS: BP 117/79
[2019-11-06 04:25] LABS: BASOPHILS # (AUTO) 0.04 x10^3/uL (0-0.1); BASOPHILS % (AUTO) 1 % (0-1); EOSINOPHILS # (AUTO) 0.12 x10^3/uL (0-0.4); EOSINOPHILS % (AUTO) 2 % (1-7); LYMPHOCYTES # (AUTO) 1.53 x10^3/uL (1-3.4); LYMPHOCYTES % (AUTO) 21 % (22-44); MD NO; MEAN CORPUSCULAR HEMOGLOBIN 31.8 pg (27.5-34.5); MEAN CORPUSCULAR HGB CONC 33.2 g/dL (33.2-36.2); MEAN CORPUSCULAR VOLUME 95.8 fL (81-97); MEAN PLATELET VOLUME 8.6 fL (7.4-10.4); MONOCYTES # (AUTO) 0.54 x10^3/uL (0.2-0.8); MONOCYTES % (AUTO) 7 % (2-9); NEUTROPHILS # (AUTO) 5.21 x10^3/uL (1.8-6.8); NEUTROPHILS % (AUTO) 70 % (42-75); PLATELET COUNT 175 x10^3/uL (130-400); RED BLOOD COUNT 4.11 x10^6/uL (4.38-5.82); RED CELL DISTRIBUTION WIDTH 15.1 % (9.4-14.8)
[2019-11-06 04:35] LABS: ALANINE AMINOTRANSFERASE 77 U/L (12-78); ALBUMIN 2.9 g/dL (3.4-5.0); ANION GAP 7 mmol/L (5-15); CALCIUM 8.3 mg/dL (8.5-10.1); CHLORIDE 107 mmol/L (98-107); CREATININE 0.87 mg/dL (0.7-1.3)
[2019-11-06 04:37] LABS: ALKALINE PHOSPHATASE 143 U/L (45-117); BILIRUBIN,TOTAL 1.6 mg/dL (0.2-1.0); TOTAL PROTEIN 6.1 g/dL (6.4-8.2)
[2019-11-06] MEDS: CARVEDILOL 12.5 MG TABLET PO SCH (06:00)
[2019-11-06] MEDS: HEPARIN 5,000 UNITS/ML, 1ML SQ SCH ×3 (06:15→22:10)
[2019-11-06] MEDS: INSULIN LISPRO 100 UNITS/ML, PEN SQ-INSULIN SCH ×4 (07:00→20:15)
[2019-11-06] MEDS: PANTOPRAZOLE 40 MG IV IVPush SCH (08:06)
[2019-11-06] MEDS: TAMSULOSIN 0.4 MG CAP.ER.24H PO SCH (08:59)
[2019-11-06] MEDS: THIAMINE 200 MG in SODIUM CHLORIDE 0.9% 50 ML IV SCH (08:59)
[2019-11-06] MEDS: SODIUM CHLORIDE FLUSH 10ML SYR IVF SCH ×2 (09:00→20:15)
[2019-11-06 11:46] LABS: TROPONIN I < 0.015 ng/mL (0.000-0.045)
[2019-11-06 15:16] VITALS: BP 122/83
[2019-11-06] MEDS: MVI ADULT 10 ML, FOLIC ACID 1 MG in D5%-0.9% NACL 1,000 ML IV SCH (16:21)
[2019-11-06] MEDS: PHENOBARBITAL 20 MG/5 ML ORAL SOL PO SCH (16:21)
[2019-11-06 19:39] VITALS: BP 154/88
[2019-11-07 00:57] VITALS: BP 132/80
[2019-11-07] MEDS: PHENOBARBITAL 20 MG/5 ML ORAL SOL PO SCH ×2 (04:10→16:31)
[2019-11-07 05:15] LABS: INTERNATIONAL NORMALIZED RATIO 0.98 (0.93-1.1); PROTHROMBIN TIME 10.4 Seconds (9.6-11.5)
[2019-11-07 05:25] LABS: CHLORIDE 108 mmol/L (98-107)
[2019-11-07 05:35] LABS: ALANINE AMINOTRANSFERASE 63 U/L (12-78); ALBUMIN 2.8 g/dL (3.4-5.0); ALKALINE PHOSPHATASE 143 U/L (45-117); ANION GAP 7 mmol/L (5-15); BILIRUBIN,TOTAL 0.6 mg/dL (0.2-1.0); CREATININE 0.74 mg/dL (0.7-1.3); TOTAL PROTEIN 5.9 g/dL (6.4-8.2)
[2019-11-07] MEDS: HEPARIN 5,000 UNITS/ML, 1ML SQ SCH ×3 (06:29→21:34)
[2019-11-07] MEDS: PANTOPRAZOLE 40 MG IV IVPush SCH (07:46)
[2019-11-07] MEDS: INSULIN LISPRO 100 UNITS/ML, PEN SQ-INSULIN SCH ×4 (07:49→21:38)
[2019-11-07 08:44] VITALS: BP 119/86
[2019-11-07] MEDS: THIAMINE 200 MG in SODIUM CHLORIDE 0.9% 50 ML IV SCH (08:53)
[2019-11-07] MEDS: SODIUM CHLORIDE FLUSH 10ML SYR IVF SCH ×2 (08:53→21:35)
[2019-11-07] MEDS: TAMSULOSIN 0.4 MG CAP.ER.24H PO SCH (08:53)
[2019-11-07 12:30] VITALS: BP 126/86
[2019-11-07] MEDS: METOPROLOL TARTRATE 25 MG TAB PO SCH ×2 (12:39→19:49)
[2019-11-07] MEDS: MVI ADULT 10 ML, FOLIC ACID 1 MG in D5%-0.9% NACL 1,000 ML IV SCH (15:36)
[2019-11-07 18:59] VITALS: BP 171/99
[2019-11-08 02:00] VITALS: BP 167/100
[2019-11-08] MEDS: PHENOBARBITAL 20 MG/5 ML ORAL SOL PO SCH ×2 (04:10→16:40)
[2019-11-08] MEDS: METOPROLOL TARTRATE 25 MG TAB PO SCH ×3 (04:10→20:26)
[2019-11-08] MEDS: PANTOPRAZOLE 40 MG IV IVPush SCH (07:16)
[2019-11-08] MEDS: HEPARIN 5,000 UNITS/ML, 1ML SQ SCH ×2 (07:16→16:40)
[2019-11-08] MEDS: SODIUM CHLORIDE FLUSH 10ML SYR IVF SCH ×2 (07:16→20:26)
[2019-11-08] MEDS: INSULIN LISPRO 100 UNITS/ML, PEN SQ-INSULIN SCH ×4 (07:16→20:00)
[2019-11-08 07:58] VITALS: BP 148/79
[2019-11-08] MEDS: TAMSULOSIN 0.4 MG CAP.ER.24H PO SCH (09:04)
[2019-11-08] MEDS: THIAMINE 200 MG in SODIUM CHLORIDE 0.9% 50 ML IV SCH (09:04)
[2019-11-08 12:54] VITALS: BP 98/65
[2019-11-08] MEDS: MVI ADULT 10 ML, FOLIC ACID 1 MG in D5%-0.9% NACL 1,000 ML IV SCH (16:40)
[2019-11-08 18:54] VITALS: BP 145/86
[2019-11-08 20:24] VITALS: BP 138/85
[2019-11-08] MEDS: NICOTINE 21 MG/24 HR PATCH.TD24 TD SCH (21:43)
[2019-11-09] VITALS (8 sets, daily range): BP systolic 111–183; BP diastolic 63–112
[2019-11-09] MEDS: HEPARIN 5,000 UNITS/ML, 1ML SQ SCH ×2 (01:22→08:11)
[2019-11-09] MEDS: PHENOBARBITAL 20 MG/5 ML ORAL SOL PO SCH (04:42)
[2019-11-09] MEDS: INSULIN LISPRO 100 UNITS/ML, PEN SQ-INSULIN SCH ×4 (07:00→21:00)
[2019-11-09 07:27] LABS: ANION GAP 9 mmol/L (5-15); CALCIUM 8.2 mg/dL (8.5-10.1); CHLORIDE 102 mmol/L (98-107); CREATININE 0.71 mg/dL (0.7-1.3)
[2019-11-09 07:34] LABS: BASOPHILS # (AUTO) 0.03 x10^3/uL (0-0.1); BASOPHILS % (AUTO) 0 % (0-1); EOSINOPHILS # (AUTO) 0.22 x10^3/uL (0-0.4); EOSINOPHILS % (AUTO) 3 % (1-7); LYMPHOCYTES # (AUTO) 2.02 x10^3/uL (1-3.4); LYMPHOCYTES % (AUTO) 26 % (22-44); MD NO; MEAN CORPUSCULAR HEMOGLOBIN 31.5 pg (27.5-34.5); MEAN CORPUSCULAR HGB CONC 32.4 g/dL (33.2-36.2); MEAN CORPUSCULAR VOLUME 97.4 fL (81-97); MEAN PLATELET VOLUME 10.2 fL (7.4-10.4); MONOCYTES # (AUTO) 0.64 x10^3/uL (0.2-0.8); MONOCYTES % (AUTO) 8 % (2-9); NEUTROPHILS # (AUTO) 4.96 x10^3/uL (1.8-6.8); NEUTROPHILS % (AUTO) 63 % (42-75); PLATELET COUNT 124 x10^3/uL (130-400); RED BLOOD COUNT 3.84 x10^6/uL (4.38-5.82); RED CELL DISTRIBUTION WIDTH 15.5 % (9.4-14.8)
[2019-11-09] MEDS: PANTOPRAZOLE 40 MG IV IVPush SCH (08:11)
[2019-11-09] MEDS: SODIUM CHLORIDE FLUSH 10ML SYR IVF SCH ×2 (08:12→21:36)
[2019-11-09] MEDS: TAMSULOSIN 0.4 MG CAP.ER.24H PO SCH (08:12)
[2019-11-09] MEDS: THIAMINE 200 MG in SODIUM CHLORIDE 0.9% 50 ML IV SCH (08:12)
[2019-11-09] MEDS: METOPROLOL TARTRATE 25 MG TAB PO SCH ×2 (10:32→21:35)
[2019-11-09] MEDS: LORazepam 0.5MG TABLET PO SCH ×3 (12:30→21:35)
[2019-11-09] MEDS ORDERED: LORazepam 1MG TABLET PO PRN (12:30)
[2019-11-09] MEDS: MULTIVITAMIN 1 TABLET PO SCH (13:44)
[2019-11-09] MEDS: FOLIC ACID 1 MG TABLET PO SCH (13:45)
[2019-11-09] MEDS: AMLODIPINE 5 MG TABLET PO SCH (13:45)
[2019-11-09] MEDS: LISINOPRIL 20 MG TABLET PO SCH (13:45)
[2019-11-09] MEDS: NICOTINE 21 MG/24 HR PATCH.TD24 TD SCH (21:35)
[2019-11-09] MEDS: APIXABAN 5 MG TABLET PO SCH (21:35)
[2019-11-10 00:18] VITALS: BP 145/88
[2019-11-10] MEDS ORDERED: PHENOBARBITAL 20 MG/5 ML ORAL SOL PO SCH (04:00)
[2019-11-10] MEDS: INSULIN LISPRO 100 UNITS/ML, PEN SQ-INSULIN SCH ×4 (07:00→20:27)
[2019-11-10 07:55] VITALS: BP 121/72
[2019-11-10] MEDS: TAMSULOSIN 0.4 MG CAP.ER.24H PO SCH (08:29)
[2019-11-10] MEDS: LORazepam 0.5MG TABLET PO SCH ×3 (08:29→20:26)
[2019-11-10] MEDS: METOPROLOL TARTRATE 25 MG TAB PO SCH ×2 (08:29→20:26)
[2019-11-10] MEDS: THIAMINE 100MG TABLET PO SCH (08:29)
[2019-11-10] MEDS: MULTIVITAMIN 1 TABLET PO SCH (08:29)
[2019-11-10] MEDS: LISINOPRIL 20 MG TABLET PO SCH (08:29)
[2019-11-10] MEDS: APIXABAN 5 MG TABLET PO SCH ×2 (08:29→20:26)
[2019-11-10] MEDS: AMLODIPINE 5 MG TABLET PO SCH (08:29)
[2019-11-10] MEDS: FOLIC ACID 1 MG TABLET PO SCH (08:29)
[2019-11-10] MEDS: SODIUM CHLORIDE FLUSH 10ML SYR IVF SCH ×2 (08:30→20:27)
[2019-11-10] MEDS ORDERED: ERGOCALCIFEROL 50,000 UNIT CAPSULE PO SCH (11:00)
[2019-11-10 14:19] VITALS: BP 105/70
[2019-11-10 19:47] VITALS: BP 123/87
[2019-11-10] MEDS: NICOTINE 21 MG/24 HR PATCH.TD24 TD SCH (20:26)
[2019-11-11 02:31] VITALS: BP_SYST 153; BP_SYST 155; BP_DIAS 104; BP_DIAS 94
[2019-11-11] MEDS ORDERED: PHENOBARBITAL 20 MG/5 ML ORAL SOL PO SCH (04:00)
[2019-11-11 05:35] LABS: CALCIUM 8.5 mg/dL (8.5-10.1); CHLORIDE 103 mmol/L (98-107)
[2019-11-11 05:39] LABS: ANION GAP 8 mmol/L (5-15); CREATININE 0.85 mg/dL (0.7-1.3)
[2019-11-11 05:42] LABS: BASOPHILS # (AUTO) 0.03 x10^3/uL (0-0.1); BASOPHILS % (AUTO) 0 % (0-1); EOSINOPHILS # (AUTO) 0.29 x10^3/uL (0-0.4); EOSINOPHILS % (AUTO) 4 % (1-7); LYMPHOCYTES # (AUTO) 1.79 x10^3/uL (1-3.4); LYMPHOCYTES % (AUTO) 23 % (22-44); MD NO; MEAN CORPUSCULAR HEMOGLOBIN 31.8 pg (27.5-34.5); MEAN CORPUSCULAR HGB CONC 33.3 g/dL (33.2-36.2); MEAN CORPUSCULAR VOLUME 95.4 fL (81-97); MEAN PLATELET VOLUME 9.3 fL (7.4-10.4); MONOCYTES # (AUTO) 1.09 x10^3/uL (0.2-0.8); MONOCYTES % (AUTO) 14 % (2-9); NEUTROPHILS # (AUTO) 4.58 x10^3/uL (1.8-6.8); NEUTROPHILS % (AUTO) 59 % (42-75); PLATELET COUNT 172 x10^3/uL (130-400); RED BLOOD COUNT 3.74 x10^6/uL (4.38-5.82); RED CELL DISTRIBUTION WIDTH 14.9 % (9.4-14.8)
[2019-11-11] MEDS: INSULIN LISPRO 100 UNITS/ML, PEN SQ-INSULIN SCH ×4 (07:00→20:42)
[2019-11-11 08:31] VITALS: BP 131/91
[2019-11-11] MEDS: LISINOPRIL 20 MG TABLET PO SCH (08:35)
[2019-11-11] MEDS: AMLODIPINE 5 MG TABLET PO SCH (08:35)
[2019-11-11] MEDS: SODIUM CHLORIDE FLUSH 10ML SYR IVF SCH ×2 (08:35→20:42)
[2019-11-11] MEDS: THIAMINE 100MG TABLET PO SCH (08:35)
[2019-11-11] MEDS: FOLIC ACID 1 MG TABLET PO SCH (08:35)
[2019-11-11] MEDS: METOPROLOL TARTRATE 25 MG TAB PO SCH ×3 (08:35→20:42)
[2019-11-11] MEDS: APIXABAN 5 MG TABLET PO SCH ×2 (08:35→20:42)
[2019-11-11] MEDS: MULTIVITAMIN 1 TABLET PO SCH (08:35)
[2019-11-11] MEDS: LORazepam 0.5MG TABLET PO SCH ×3 (08:35→20:41)
[2019-11-11] MEDS: TAMSULOSIN 0.4 MG CAP.ER.24H PO SCH (08:35)
[2019-11-11 14:54] VITALS: BP 147/72
[2019-11-11] MEDS ORDERED: FOLI-17 PO ×2 (15:09)
[2019-11-11] MEDS ORDERED: METO25TA35 PO ×2 (15:09)
[2019-11-11] MEDS ORDERED: LISI-170 PO ×2 (15:09)
[2019-11-11] MEDS ORDERED: LORA-445 PO (15:09)
[2019-11-11] MEDS ORDERED: ERGO500017 PO ×2 (15:09)
[2019-11-11] MEDS ORDERED: THIA100T67 PO (15:11)
[2019-11-11] MEDS ORDERED: NICO-487 TD (15:11)
[2019-11-11] MEDS ORDERED: MULT1TAB60 PO (15:11)
[2019-11-11] MEDS ORDERED: TAMS-11 PO (15:11)
[2019-11-11 19:12] VITALS: BP 145/84
[2019-11-11] MEDS: NICOTINE 21 MG/24 HR PATCH.TD24 TD SCH (20:42)
[2019-11-12 01:17] VITALS: BP 144/95
[2019-11-12 04:34] LABS: BASOPHILS # (AUTO) 0.04 x10^3/uL (0-0.1); BASOPHILS % (AUTO) 1 % (0-1); EOSINOPHILS # (AUTO) 0.29 x10^3/uL (0-0.4); EOSINOPHILS % (AUTO) 4 % (1-7); LYMPHOCYTES % (AUTO) 26 % (22-44); MD NO; MEAN CORPUSCULAR HGB CONC 33.6 g/dL (33.2-36.2); MEAN CORPUSCULAR VOLUME 95.1 fL (81-97); MEAN PLATELET VOLUME 8.7 fL (7.4-10.4); MONOCYTES # (AUTO) 1.08 x10^3/uL (0.2-0.8); MONOCYTES % (AUTO) 16 % (2-9); NEUTROPHILS # (AUTO) 3.73 x10^3/uL (1.8-6.8); NEUTROPHILS % (AUTO) 54 % (42-75); PLATELET COUNT 187 x10^3/uL (130-400); RED BLOOD COUNT 3.75 x10^6/uL (4.38-5.82); RED CELL DISTRIBUTION WIDTH 15.1 % (9.4-14.8)
[2019-11-12 04:45] LABS: ALANINE AMINOTRANSFERASE 79 U/L (12-78); ANION GAP 6 mmol/L (5-15); CALCIUM 8.8 mg/dL (8.5-10.1); CHLORIDE 104 mmol/L (98-107)
[2019-11-12 04:49] LABS: ALKALINE PHOSPHATASE 143 U/L (45-117); BILIRUBIN,TOTAL 0.3 mg/dL (0.2-1.0); CREATININE 0.98 mg/dL (0.7-1.3); TOTAL PROTEIN 6.8 g/dL (6.4-8.2)
[2019-11-12] MEDS: INSULIN LISPRO 100 UNITS/ML, PEN SQ-INSULIN SCH ×2 (07:00→11:00)
[2019-11-12 07:38] VITALS: BP 179/85
[2019-11-12] MEDS: FOLIC ACID 1 MG TABLET PO SCH (08:59)
[2019-11-12] MEDS: LISINOPRIL 20 MG TABLET PO SCH (08:59)
[2019-11-12] MEDS: TAMSULOSIN 0.4 MG CAP.ER.24H PO SCH (08:59)
[2019-11-12] MEDS: LORazepam 0.5MG TABLET PO SCH (08:59)
[2019-11-12] MEDS: APIXABAN 5 MG TABLET PO SCH (08:59)
[2019-11-12] MEDS: AMLODIPINE 5 MG TABLET PO SCH (08:59)
[2019-11-12] MEDS: MULTIVITAMIN 1 TABLET PO SCH (08:59)
[2019-11-12] MEDS: METOPROLOL TARTRATE 25 MG TAB PO SCH (09:00)
[2019-11-12] MEDS ORDERED: MAGNESIUM SULFATE PMX 2GM/50ML 50 ML IV ONE (09:00)
[2019-11-12] MEDS: THIAMINE 100MG TABLET PO SCH (09:00)
[2019-11-12] MEDS: SODIUM CHLORIDE FLUSH 10ML SYR IVF SCH (09:00)
[2019-11-12 12:04] VITALS: BP 143/94
[2019-11-12] MEDS ORDERED: AMLO-150 PO (12:48)
[2019-11-12] MEDS ORDERED: APIX5TAB PO (12:52)
[2019-11-12] MEDS ORDERED: FURO20TA3 PO (12:52)
[2019-11-12] MEDS ORDERED: ERGO500017 PO (12:52)
[2019-11-12] MEDS ORDERED: LISI-170 PO (12:52)
[2019-11-12] MEDS ORDERED: TAMS-11 PO (12:52)
[2019-11-12] MEDS ORDERED: THIA100T67 PO (12:52)
[2019-11-12] MEDS ORDERED: NICO-487 TD (12:52)
[2019-11-12] MEDS ORDERED: FOLI-17 PO (12:52)
[2019-11-12] MEDS ORDERED: LORA-445 PO (12:52)
[2019-11-12] MEDS ORDERED: MULT1TAB60 PO (12:52)
[2019-11-12] MEDS ORDERED: METO25TA35 PO (12:52)
== END 2019-11-12 14:34 | disposition home or self-care (01) | DRG 432 ==
LOC: ED 15:07 → SUATTDRO 19:15 → EDIP 21:04 → CCU 21:10 → 4WST 11-06 13:11
PROVIDERS: ADMIT Internal Medicine; ATTEND Hospitalist
DX: K70.10 Alcoholic hepatitis without ascites (principal); G92 Toxic encephalopathy; N17.0 Acute kidney failure with tubular necrosis; D68.69 Other thrombophilia; E87.1 Hypo-osmolality and hyponatremia; F10.239 Alcohol dependence with withdrawal, unspecified; F10.288 Alcohol dependence with other alcohol-induced disorder; I48.20 Chronic atrial fibrillation, unspecified; I50.32 Chronic diastolic (congestive) heart failure; E88.09 Other disorders of plasma-protein metabolism, not elsewhere classified; F10.229 Alcohol dependence with intoxication, unspecified; E83.42 Hypomagnesemia; R73.9 Hyperglycemia, unspecified; F41.9 Anxiety disorder, unspecified; I11.0 Hypertensive heart disease with heart failure; Z79.01 Long term (current) use of anticoagulants; Z87.891 Personal history of nicotine dependence; Z91.14 Patient's other noncompliance with medication regimen
CPT/HCPCS: 36415; 96361; 96374; 96376; 99291; J7042; 80048; 80053; 80307; 82306; 82607; 82962; 83036; 83690; 83735; 84100; 84443; 84484; 85025; 85610; 87081; 93005; G0378; J1644; J2560; J3411; J3475; C9113; J0360; J2060; J7030; Q0177

== ENCOUNTER 2020-04-27 20:43 | Inpatient (IN) | payer MEDICAID ==
[~2020-04-27] VITALS: Ht 193 cm; Wt 91.8 kg
[~2020-04-27 20:43] MED LIST changes: +ERGO500017 PO; +FOLI-17 PO; +LORA-445 PO; +MULT-449 PO; +NICO-487 TD; +TAMS-11 PO
[2020-04-27 21:40] LABS: BASOPHILS # (AUTO) 0.07 x10^3/uL (0-0.1); BASOPHILS % (AUTO) 1 % (0-1); EOSINOPHILS # (AUTO) 0.15 x10^3/uL (0-0.4); EOSINOPHILS % (AUTO) 2 % (1-7); LYMPHOCYTES # (AUTO) 1.94 x10^3/uL (1-3.4); LYMPHOCYTES % (AUTO) 33 % (22-44); MD NO; MEAN CORPUSCULAR VOLUME 100.1 fL (81-97); MEAN PLATELET VOLUME 8.3 fL (7.4-10.4); MONOCYTES # (AUTO) 0.38 x10^3/uL (0.2-0.8); MONOCYTES % (AUTO) 6 % (2-9); NEUTROPHILS # (AUTO) 3.44 x10^3/uL (1.8-6.8); NEUTROPHILS % (AUTO) 58 % (42-75); PLATELET COUNT 239 x10^3/uL (130-400); RED CELL DISTRIBUTION WIDTH 15.6 % (9.4-14.8)
--- NOTE | 2020-04-27 21:43 | NUR ---
Assist RN: pt changed into gown and placed on full monitors. PIV placed. Lab at bedside for draw. Primary RN at bedside. MD at bedside.
--- NOTE | 2020-04-27 21:43 | NUR ---
pt came into ed today due to SOB [id number]. pt states he has a-fib and has been having dizzy spells and recently fell and hit head. pt states he drinks daily, Pulses 2+, lower extremity swelling noted 2-3 pitting edema, pt nad, states 60 days ago his medications ran out and he hasnt taken anything since. pt denies any changes in vision or headaches at this time. Law LACEY at for eval and poc. wctm. pt placed on spo2/bp/ecg monitoring. pt in a-fib at this time. placed on 2L NC for 02 sat, now at 94%
[2020-04-27 21:53] LABS: ALBUMIN 3.7 g/dL (3.4-5.0); ANION GAP 4 mmol/L (5-15); CALCIUM 8.7 mg/dL (8.5-10.1); CHLORIDE 119 mmol/L (98-107); CREATININE 0.84 mg/dL (0.7-1.3)
[2020-04-27 21:57] LABS: TROPONIN I < 0.015 ng/mL (0.000-0.045)
[2020-04-27] MEDS ORDERED: METOPROLOL 1 MG/ML, 5ML ONE (21:59)
[2020-04-27] MEDS ORDERED: THIAMINE 100MG TABLET ONE (21:59)
[2020-04-27] MEDS ORDERED: METOPROLOL 1 MG/ML, 5ML IVPush ONE (22:00)
[2020-04-27] MEDS ORDERED: THIAMINE 100MG TABLET PO ONE (22:00)
--- NOTE | 2020-04-27 22:59 | NUR ---
pt resting on gurney, given water for comfort, warm blankets for comfort, lights dimmed, pt nad, no change in condition, wctm. pt up for recheck.
--- NOTE | 2020-04-27 23:03 | NUR ---
2L NC APPLIED UPON ARRIVAL TO THIS RNs ROOM ASSIGNMENT TO MAINTAIN O2 SATS. WCTM.
[2020-04-27] MEDS ORDERED: FUROSEMIDE 40 MG/4 ML ONE (23:26)
[2020-04-27] MEDS: SODIUM CHLORIDE FLUSH 10ML SYR IVF SCH (23:30)
[2020-04-27] MEDS ORDERED: BISACODYL 10 MG SUPP PR PRN (23:30)
[2020-04-27] MEDS ORDERED: POLYETHYLENE GLYCOL 17 GM PACKET PO PRN (23:30)
[2020-04-27] MEDS ORDERED: ONDANSETRON ODT 4 MG PO PRN (23:30)
[2020-04-27] MEDS ORDERED: LORazepam 2 MG/ML, 1ML IVPush PRN (23:30)
[2020-04-27] MEDS ORDERED: ERGOCALCIFEROL 50,000 UNIT CAPSULE PO SCH (23:30)
[2020-04-27] MEDS ORDERED: FUROSEMIDE 40 MG/4 ML IV ONE (23:30)
[2020-04-27] MEDS ORDERED: ACETAMINOPHEN 325 MG TABLET PO PRN (23:30)
--- NOTE | 2020-04-28 | NUR ---
late entry d/t pt care: one full urinal emptied, pt appears comfortable, consumed 90 mL water, NAD, watching tv, denies additional needs at this time, wctm. waiting for admit bed
--- NOTE | 2020-04-28 00:48 | NUR ---
report called to edmundo calderon, pt care to be transferred upon arrival to floor. pt NAD. wctm. no changes in condition.
[2020-04-28 02:19] VITALS: BP 155/103
[2020-04-28] MEDS: NICOTINE 21 MG/24 HR PATCH.TD24 TD SCH ×2 (02:39→20:10)
[2020-04-28 06:07] LABS: ANION GAP 9 mmol/L (5-15); CALCIUM 8.7 mg/dL (8.5-10.1); CHLORIDE 112 mmol/L (98-107)
[2020-04-28 06:20] LABS: BASOPHILS # (AUTO) 0.03 x10^3/uL (0-0.1); BASOPHILS % (AUTO) 0 % (0-1); EOSINOPHILS # (AUTO) 0.15 x10^3/uL (0-0.4); EOSINOPHILS % (AUTO) 2 % (1-7); LYMPHOCYTES # (AUTO) 1.39 x10^3/uL (1-3.4); LYMPHOCYTES % (AUTO) 22 % (22-44); MD NO; MEAN CORPUSCULAR HEMOGLOBIN 32.7 pg (27.5-34.5); MEAN CORPUSCULAR HGB CONC 32.4 g/dL (33.2-36.2); MEAN CORPUSCULAR VOLUME 100.8 fL (81-97); MEAN PLATELET VOLUME 8.5 fL (7.4-10.4); MONOCYTES # (AUTO) 0.47 x10^3/uL (0.2-0.8); MONOCYTES % (AUTO) 7 % (2-9); NEUTROPHILS # (AUTO) 4.27 x10^3/uL (1.8-6.8); NEUTROPHILS % (AUTO) 68 % (42-75); PLATELET COUNT 219 x10^3/uL (130-400); RED BLOOD COUNT 4.19 x10^6/uL (4.38-5.82); RED CELL DISTRIBUTION WIDTH 15.3 % (9.4-14.8)
[2020-04-28 07:40] VITALS: BP 161/105
[2020-04-28] MEDS ORDERED: LORazepam 0.5MG TABLET PO PRN (08:00)
[2020-04-28] MEDS ORDERED: LORazepam 2 MG/ML, 1ML IV PRN (08:00)
[2020-04-28] MEDS ORDERED: LORazepam 1MG TABLET PO PRN ×2 (08:00)
[2020-04-28] MEDS: CHLORDIAZEPOXIDE 25 MG CAPSULE PO SCH ×6 (08:00→20:11)
[2020-04-28] MEDS: FUROSEMIDE 40 MG/4 ML IV SCH ×2 (08:09→16:31)
[2020-04-28] MEDS: APIXABAN 5 MG TABLET PO SCH ×2 (08:10→20:09)
[2020-04-28] MEDS: METOPROLOL TARTRATE 25 MG TAB PO SCH ×2 (08:10→20:10)
[2020-04-28] MEDS: LISINOPRIL 20 MG TABLET PO SCH (08:10)
[2020-04-28] MEDS: FOLIC ACID 1 MG TABLET PO SCH (08:10)
[2020-04-28] MEDS: MULTIVITAMIN 1 TABLET PO SCH (08:10)
[2020-04-28] MEDS: TAMSULOSIN 0.4 MG CAP.ER.24H PO SCH (08:11)
[2020-04-28] MEDS: THIAMINE 100MG TABLET PO SCH ×2 (08:11→20:10)
[2020-04-28] MEDS: SODIUM CHLORIDE FLUSH 10ML SYR IVF SCH ×2 (08:12→20:11)
[2020-04-28] MEDS: SENNA/DOCUSATE TABLET PO SCH (09:00)
[2020-04-28] MEDS: LORazepam 2 MG/ML, 1ML IV PRN ×2 (11:47→13:25)
[2020-04-28 14:30] VITALS: BP 173/89
[2020-04-28 20:11] VITALS: BP 146/93
[2020-04-28 20:47] VITALS: BP 157/101
[2020-04-28 21:30] VITALS: BP 165/99
[2020-04-29] MEDS: CHLORDIAZEPOXIDE 25 MG CAPSULE PO SCH ×6 (02:00→19:53)
[2020-04-29 02:16] VITALS: BP 150/94
[2020-04-29 05:13] LABS: BASOPHILS # (AUTO) 0.03 x10^3/uL (0-0.1); BASOPHILS % (AUTO) 0 % (0-1); EOSINOPHILS # (AUTO) 0.29 x10^3/uL (0-0.4); EOSINOPHILS % (AUTO) 3 % (1-7); LYMPHOCYTES # (AUTO) 1.23 x10^3/uL (1-3.4); LYMPHOCYTES % (AUTO) 13 % (22-44); MD NO; MEAN CORPUSCULAR HGB CONC 32.8 g/dL (33.2-36.2); MEAN CORPUSCULAR VOLUME 100.7 fL (81-97); MEAN PLATELET VOLUME 8.8 fL (7.4-10.4); MONOCYTES # (AUTO) 0.67 x10^3/uL (0.2-0.8); MONOCYTES % (AUTO) 7 % (2-9); NEUTROPHILS % (AUTO) 76 % (42-75); PLATELET COUNT 203 x10^3/uL (130-400); RED BLOOD COUNT 4.36 x10^6/uL (4.38-5.82); RED CELL DISTRIBUTION WIDTH 15.7 % (9.4-14.8)
[2020-04-29 05:17] LABS: ALBUMIN 3.5 g/dL (3.4-5.0); ANION GAP 5 mmol/L (5-15); CALCIUM 9.2 mg/dL (8.5-10.1); CHLORIDE 104 mmol/L (98-107)
[2020-04-29 05:22] LABS: ALANINE AMINOTRANSFERASE 92 U/L (12-78); ALKALINE PHOSPHATASE 166 U/L (45-117); BILIRUBIN,TOTAL 1.6 mg/dL (0.2-1.0); CREATININE 1.02 mg/dL (0.7-1.3); TOTAL PROTEIN 7.6 g/dL (6.4-8.2)
[2020-04-29 06:50] VITALS: BP 150/107
[2020-04-29] MEDS: THIAMINE 100MG TABLET PO SCH ×2 (08:26→19:52)
[2020-04-29] MEDS: FUROSEMIDE 40 MG/4 ML IV SCH ×2 (08:26→17:52)
[2020-04-29] MEDS: TAMSULOSIN 0.4 MG CAP.ER.24H PO SCH (08:27)
[2020-04-29] MEDS: APIXABAN 5 MG TABLET PO SCH ×2 (08:27→19:52)
[2020-04-29] MEDS: FOLIC ACID 1 MG TABLET PO SCH (08:27)
[2020-04-29] MEDS: SODIUM CHLORIDE FLUSH 10ML SYR IVF SCH ×2 (08:27→19:53)
[2020-04-29] MEDS: LISINOPRIL 20 MG TABLET PO SCH (08:27)
[2020-04-29] MEDS: METOPROLOL TARTRATE 25 MG TAB PO SCH ×2 (08:27→19:52)
[2020-04-29] MEDS: MULTIVITAMIN 1 TABLET PO SCH (08:27)
[2020-04-29] MEDS: SENNA/DOCUSATE TABLET PO SCH (08:28)
[2020-04-29] MEDS: POTASSIUM CHLORIDE 20 MEQ TAB.ER.PRT PO SCH ×3 (09:00→17:52)
[2020-04-29] MEDS ORDERED: MAGNESIUM SULFATE PMX 2GM/50ML 50 ML IV ONE (09:00)
[2020-04-29 12:50] VITALS: BP 135/95
[2020-04-29] MEDS: NICOTINE 21 MG/24 HR PATCH.TD24 TD SCH (20:00)
[2020-04-29 20:02] VITALS: BP 145/87
[2020-04-29] MEDS: LORazepam 2 MG/ML, 1ML IV PRN ×3 (21:56→23:39)
[2020-04-30] MEDS: CHLORDIAZEPOXIDE 25 MG CAPSULE PO SCH ×3 (01:12→12:30)
[2020-04-30 01:18] VITALS: BP 137/102
[2020-04-30] MEDS: LORazepam 2 MG/ML, 1ML IV PRN ×5 (01:52→07:50)
[2020-04-30] MEDS: hydrALAzine 20 MG/ML, 1ML IV PRN ×2 (02:15→21:35)
[2020-04-30 05:55] LABS: BASOPHILS # (AUTO) 0.01 x10^3/uL (0-0.1); BASOPHILS % (AUTO) 0 % (0-1); EOSINOPHILS # (AUTO) 0.25 x10^3/uL (0-0.4); EOSINOPHILS % (AUTO) 3 % (1-7); LYMPHOCYTES # (AUTO) 1.43 x10^3/uL (1-3.4); LYMPHOCYTES % (AUTO) 16 % (22-44); MD NO; MEAN CORPUSCULAR HEMOGLOBIN 33.3 pg (27.5-34.5); MEAN CORPUSCULAR HGB CONC 33.2 g/dL (33.2-36.2); MEAN CORPUSCULAR VOLUME 100.1 fL (81-97); MEAN PLATELET VOLUME 9.3 fL (7.4-10.4); MONOCYTES # (AUTO) 0.64 x10^3/uL (0.2-0.8); MONOCYTES % (AUTO) 7 % (2-9); NEUTROPHILS # (AUTO) 6.82 x10^3/uL (1.8-6.8); NEUTROPHILS % (AUTO) 75 % (42-75); PLATELET COUNT 165 x10^3/uL (130-400); RED BLOOD COUNT 4.69 x10^6/uL (4.38-5.82); RED CELL DISTRIBUTION WIDTH 15.5 % (9.4-14.8)
[2020-04-30 06:07] LABS: ANION GAP 7 mmol/L (5-15); CALCIUM 9.1 mg/dL (8.5-10.1); CHLORIDE 109 mmol/L (98-107)
[2020-04-30 06:09] LABS: CREATININE 0.84 mg/dL (0.7-1.3)
[2020-04-30 07:05] VITALS: BP 128/84
[2020-04-30] MEDS: APIXABAN 5 MG TABLET PO SCH ×2 (07:45→21:17)
[2020-04-30] MEDS: LISINOPRIL 20 MG TABLET PO SCH (07:45)
[2020-04-30] MEDS: THIAMINE 100MG TABLET PO SCH ×2 (07:45→21:17)
[2020-04-30] MEDS: FUROSEMIDE 40 MG/4 ML IV SCH (07:45)
[2020-04-30] MEDS: POTASSIUM CHLORIDE 20 MEQ TAB.ER.PRT PO SCH ×2 (07:45→12:12)
[2020-04-30] MEDS: METOPROLOL TARTRATE 25 MG TAB PO SCH (07:45)
[2020-04-30] MEDS: FOLIC ACID 1 MG TABLET PO SCH (07:45)
[2020-04-30] MEDS: TAMSULOSIN 0.4 MG CAP.ER.24H PO SCH (07:45)
[2020-04-30] MEDS: MULTIVITAMIN 1 TABLET PO SCH (07:45)
[2020-04-30] MEDS: SODIUM CHLORIDE FLUSH 10ML SYR IVF SCH ×2 (07:46→21:34)
[2020-04-30] MEDS: SENNA/DOCUSATE TABLET PO SCH (07:46)
[2020-04-30] MEDS ORDERED: LORazepam 2 MG/ML, 1ML IVPush PRN (08:30)
[2020-04-30] MEDS ORDERED: FUROSEMIDE 40 MG/4 ML IV SCH (09:00)
[2020-04-30] MEDS ORDERED: LORazepam 2 MG/ML, 1ML IVPush ONE (11:30)
[2020-04-30] MEDS ORDERED: PHENOBARBITAL SODIUM 650 MG in SODIUM CHLORIDE 0.9% 50 ML IV ONE (15:30)
[2020-04-30] MEDS ORDERED: SODIUM CHLORIDE 0.9% 1,000ML IVBOLUS ONE (15:30)
[2020-04-30] MEDS ORDERED: ADENOSINE 6 MG/2 ML ONE (15:59)
[2020-04-30] MEDS ORDERED: MAGNESIUM SULFATE PMX 2GM/50ML 50 ML IV ONE (16:00)
[2020-04-30] MEDS ORDERED: PHENOBARBITAL ETOH DETOX PER PHARMACY MC PRN (17:00)
[2020-04-30] MEDS ORDERED: METOPROLOL TARTRATE 25 MG TAB PO SCH (21:00)
[2020-04-30] MEDS: NICOTINE 21 MG/24 HR PATCH.TD24 TD SCH (21:08)
[2020-04-30] MEDS ORDERED: LABETALOL 5MG/ML, 20ML IVPush ONE (23:00)
[2020-05-01] MEDS: PHENOBARBITAL SODIUM 65 MG/ML, 1ML IM SCH ×3 (00:39→23:23)
[2020-05-01] MEDS ORDERED: HALOPERIDOL 5 MG/ML IM ONE (02:00)
[2020-05-01] MEDS: DILTIAZEM 125 MG in SODIUM CHLORIDE 0.9% 100 ML IV PRN ×2 (03:40→14:01)
[2020-05-01 04:00] VITALS: BP 156/115
[2020-05-01] MEDS: hydrALAzine 20 MG/ML, 1ML IV PRN (06:54)
[2020-05-01 08:09] LABS: BASOPHILS # (AUTO) 0.05 x10^3/uL (0-0.1); BASOPHILS % (AUTO) 1 % (0-1); EOSINOPHILS # (AUTO) 0.08 x10^3/uL (0-0.4); EOSINOPHILS % (AUTO) 1 % (1-7); LYMPHOCYTES # (AUTO) 1.19 x10^3/uL (1-3.4); LYMPHOCYTES % (AUTO) 11 % (22-44); MD NO; MEAN CORPUSCULAR HEMOGLOBIN 32.9 pg (27.5-34.5); MEAN CORPUSCULAR HGB CONC 32.4 g/dL (33.2-36.2); MEAN CORPUSCULAR VOLUME 101.6 fL (81-97); MEAN PLATELET VOLUME 9.1 fL (7.4-10.4); MONOCYTES # (AUTO) 0.48 x10^3/uL (0.2-0.8); MONOCYTES % (AUTO) 5 % (2-9); NEUTROPHILS # (AUTO) 8.98 x10^3/uL (1.8-6.8); NEUTROPHILS % (AUTO) 83 % (42-75); PLATELET COUNT 175 x10^3/uL (130-400); RED BLOOD COUNT 4.56 x10^6/uL (4.38-5.82); RED CELL DISTRIBUTION WIDTH 15.6 % (9.4-14.8)
[2020-05-01 08:17] LABS: INTERNATIONAL NORMALIZED RATIO 1.04 (0.93-1.1); PROTHROMBIN TIME 10.7 Seconds (9.6-11.5)
[2020-05-01 08:21] LABS: ALANINE AMINOTRANSFERASE 69 U/L (12-78); ALBUMIN 3.7 g/dL (3.4-5.0); ANION GAP 7 mmol/L (5-15); CALCIUM 9.9 mg/dL (8.5-10.1); CHLORIDE 113 mmol/L (98-107); CREATININE 0.86 mg/dL (0.7-1.3)
[2020-05-01 08:23] LABS: ALKALINE PHOSPHATASE 168 U/L (45-117); BILIRUBIN,TOTAL 1.1 mg/dL (0.2-1.0); TOTAL PROTEIN 8.2 g/dL (6.4-8.2)
[2020-05-01] MEDS: POTASSIUM CHLORIDE 20 MEQ TAB.ER.PRT PO SCH ×3 (09:00→15:59)
[2020-05-01] MEDS: FUROSEMIDE 40 MG/4 ML IV SCH (10:01)
[2020-05-01] MEDS: MULTIVITAMIN 1 TABLET PO SCH (10:02)
[2020-05-01] MEDS: THIAMINE 100MG TABLET PO SCH ×2 (10:02→20:26)
[2020-05-01] MEDS: TAMSULOSIN 0.4 MG CAP.ER.24H PO SCH (10:02)
[2020-05-01] MEDS: FOLIC ACID 1 MG TABLET PO SCH (10:02)
[2020-05-01] MEDS: SENNA/DOCUSATE TABLET PO SCH (10:02)
[2020-05-01] MEDS: SODIUM CHLORIDE FLUSH 10ML SYR IVF SCH ×2 (10:03→20:26)
[2020-05-01] MEDS: APIXABAN 5 MG TABLET PO SCH ×2 (10:03→20:26)
[2020-05-01] MEDS: LISINOPRIL 20 MG TABLET PO SCH (10:03)
[2020-05-01] MEDS: METOPROLOL TARTRATE 50 MG TAB PO SCH ×2 (10:03→20:26)
[2020-05-01] MEDS ORDERED: PHENOBARBITAL SODIUM 65 MG/ML, 1ML IVPush ONE (16:00)
[2020-05-01] MEDS: NICOTINE 21 MG/24 HR PATCH.TD24 TD SCH (20:32)
[2020-05-02] MEDS: DILTIAZEM 125 MG in SODIUM CHLORIDE 0.9% 100 ML IV PRN (03:14)
[2020-05-02 04:42] LABS: ANION GAP 7 mmol/L (5-15); CALCIUM 9.6 mg/dL (8.5-10.1); CHLORIDE 116 mmol/L (98-107); CREATININE 1.04 mg/dL (0.7-1.3)
[2020-05-02] MEDS ORDERED: SODIUM CHLORIDE 0.45% 1,000 ML IV SCH (07:00)
[2020-05-02] MEDS: FOLIC ACID 1 MG TABLET PO SCH (08:47)
[2020-05-02] MEDS: APIXABAN 5 MG TABLET PO SCH ×2 (08:47→20:40)
[2020-05-02] MEDS: TAMSULOSIN 0.4 MG CAP.ER.24H PO SCH (08:47)
[2020-05-02] MEDS: MULTIVITAMIN 1 TABLET PO SCH (08:48)
[2020-05-02] MEDS: LISINOPRIL 20 MG TABLET PO SCH (08:48)
[2020-05-02] MEDS: POTASSIUM CHLORIDE 20 MEQ TAB.ER.PRT PO SCH (08:48)
[2020-05-02] MEDS: METOPROLOL TARTRATE 50 MG TAB PO SCH ×2 (08:49→17:56)
[2020-05-02] MEDS: THIAMINE 100MG TABLET PO SCH ×2 (08:51→20:40)
[2020-05-02] MEDS: SENNA/DOCUSATE TABLET PO SCH (08:51)
[2020-05-02] MEDS: hydrALAzine 20 MG/ML, 1ML IV PRN (08:52)
[2020-05-02] MEDS: SODIUM CHLORIDE FLUSH 10ML SYR IVF SCH ×2 (08:52→20:41)
[2020-05-02] MEDS: FUROSEMIDE 40 MG/4 ML IV SCH (08:52)
[2020-05-02] MEDS ORDERED: PHENOBARBITAL 20 MG/5 ML ORAL SOL PO ONE (12:00)
[2020-05-02 18:40] VITALS: BP 142/97
[2020-05-02] MEDS: NICOTINE 21 MG/24 HR PATCH.TD24 TD SCH (20:43)
[2020-05-03 00:33] VITALS: BP 93/64
[2020-05-03] MEDS: METOPROLOL TARTRATE 50 MG TAB PO SCH ×3 (00:35→17:33)
[2020-05-03] MEDS: PHENOBARBITAL 20 MG/5 ML ORAL SOL PO SCH ×3 (00:35→23:40)
[2020-05-03 00:58] VITALS: BP 110/67
[2020-05-03 05:34] LABS: CHLORIDE 114 mmol/L (98-107)
[2020-05-03 05:44] LABS: ANION GAP 8 mmol/L (5-15); CALCIUM 8.9 mg/dL (8.5-10.1); CREATININE 1.07 mg/dL (0.7-1.3)
[2020-05-03 06:29] VITALS: BP 100/67
[2020-05-03] MEDS: SENNA/DOCUSATE TABLET PO SCH (09:00)
[2020-05-03] MEDS: APIXABAN 5 MG TABLET PO SCH ×2 (09:28→19:48)
[2020-05-03] MEDS: FOLIC ACID 1 MG TABLET PO SCH (09:28)
[2020-05-03] MEDS: THIAMINE 100MG TABLET PO SCH ×2 (09:28→19:48)
[2020-05-03] MEDS: MULTIVITAMIN 1 TABLET PO SCH (09:28)
[2020-05-03] MEDS: TAMSULOSIN 0.4 MG CAP.ER.24H PO SCH (09:28)
[2020-05-03] MEDS: LISINOPRIL 20 MG TABLET PO SCH (09:28)
[2020-05-03] MEDS: SODIUM CHLORIDE FLUSH 10ML SYR IVF SCH ×2 (09:29→19:40)
[2020-05-03 13:11] VITALS: BP 102/68
[2020-05-03 18:14] VITALS: BP 98/62
[2020-05-03] MEDS: NICOTINE 21 MG/24 HR PATCH.TD24 TD SCH (19:48)
[2020-05-04 00:36] VITALS: BP 101/61
[2020-05-04 01:33] VITALS: BP 99/63
[2020-05-04] MEDS: METOPROLOL TARTRATE 50 MG TAB PO SCH ×2 (01:33→08:55)
[2020-05-04 08:30] VITALS: BP 94/61
[2020-05-04] MEDS: MULTIVITAMIN 1 TABLET PO SCH (08:55)
[2020-05-04] MEDS: FOLIC ACID 1 MG TABLET PO SCH (08:55)
[2020-05-04] MEDS: APIXABAN 5 MG TABLET PO SCH (08:55)
[2020-05-04] MEDS: TAMSULOSIN 0.4 MG CAP.ER.24H PO SCH (08:55)
[2020-05-04] MEDS: SODIUM CHLORIDE FLUSH 10ML SYR IVF SCH (08:56)
[2020-05-04] MEDS: LISINOPRIL 20 MG TABLET PO SCH (08:56)
[2020-05-04] MEDS: SENNA/DOCUSATE TABLET PO SCH (08:56)
[2020-05-04] MEDS: THIAMINE 100MG TABLET PO SCH (08:59)
[2020-05-05] MEDS ORDERED: PHENOBARBITAL 20 MG/5 ML ORAL SOL PO SCH
[2020-05-06] MEDS ORDERED: PHENOBARBITAL 20 MG/5 ML ORAL SOL PO SCH
== END 2020-05-04 12:04 | disposition left against medical advice (07) | DRG 291 ==
LOC: ED 22:54 → EDIP 23:22 → 5SO 04-28 00:20 → CCU 04-30 11:46 → 4WST 05-02 18:29
PROVIDERS: ADMIT Family Medicine; ATTEND Internal Medicine
DX: I11.0 Hypertensive heart disease with heart failure (principal); J96.01 Acute respiratory failure with hypoxia; G92 Toxic encephalopathy; D68.59 Other primary thrombophilia; F10.231 Alcohol dependence with withdrawal delirium; I48.20 Chronic atrial fibrillation, unspecified; I50.33 Acute on chronic diastolic (congestive) heart failure; D53.9 Nutritional anemia, unspecified; E83.42 Hypomagnesemia; E87.6 Hypokalemia; F17.210 Nicotine dependence, cigarettes, uncomplicated; I27.20 Pulmonary hypertension, unspecified; J44.9 Chronic obstructive pulmonary disease, unspecified; K70.10 Alcoholic hepatitis without ascites; Z78.1 Physical restraint status; Z79.01 Long term (current) use of anticoagulants; Z83.3 Family history of diabetes mellitus; Z91.14 Patient's other noncompliance with medication regimen; Z91.19 Patient's noncompliance with other medical treatment and regimen; Y90.9 Presence of alcohol in blood, level not specified
CPT/HCPCS: 36415; 71045; 80048; 80053; 82040; 83735; 83880; 84100; 84484; 85025; 85610; 86803; 87081; 93005; 96374; 96375; 99285; G0378; J1940; J2560; J0360; J1630; J2060; J3475; J7030

== ENCOUNTER 2020-07-12 20:31 | Emergency (ER) | payer MEDICAID ==
[~2020-07-12] VITALS: Ht 193 cm; Wt 100.0 kg
[~2020-07-12 20:31] MED LIST changes: +AMLO-211 PO; -AMLO10TA8 PO
[2020-07-12] MEDS ORDERED: METOPROLOL TARTRATE 25 MG TAB PO ONE (21:00)
[2020-07-12] MEDS ORDERED: SODIUM CHLORIDE FLUSH 10ML SYR IVF ONE (21:00)
[2020-07-12] MEDS ORDERED: METOPROLOL 1 MG/ML, 5ML IVPush PRN (21:00)
[2020-07-12] MEDS ORDERED: METOPROLOL TARTRATE 25 MG TAB ONE (21:00)
[2020-07-12 21:07] LABS: BASOPHILS % (AUTO) 1 % (0-1); EOSINOPHILS % (AUTO) 2 % (1-7); LYMPHOCYTES % (AUTO) 27 % (22-44); MEAN CORPUSCULAR HEMOGLOBIN 33.6 pg (27.5-34.5); MEAN CORPUSCULAR HGB CONC 33.9 g/dL (33.2-36.2); MEAN PLATELET VOLUME 7.9 fL (7.4-10.4); MONOCYTES % (AUTO) 6 % (2-9); NEUTROPHILS % (AUTO) 64 % (42-75); PLATELET COUNT 358 x10^3/uL (130-400); RED BLOOD COUNT 4.13 x10^6/uL (4.38-5.82); RED CELL DISTRIBUTION WIDTH 13.4 % (9.4-14.8)
[2020-07-12 21:16] LABS: ALANINE AMINOTRANSFERASE 45 U/L (12-78); ALBUMIN 2.9 g/dL (3.4-5.0); ANION GAP 8 mmol/L (5-15); CALCIUM 8.2 mg/dL (8.5-10.1); CHLORIDE 107 mmol/L (98-107); CREATININE 0.74 mg/dL (0.7-1.3)
[2020-07-12 21:21] LABS: ALKALINE PHOSPHATASE 222 U/L (45-117); BILIRUBIN,TOTAL 0.3 mg/dL (0.2-1.0); TOTAL PROTEIN 7.1 g/dL (6.4-8.2); TROPONIN I < 0.015 ng/mL (0.000-0.045)
[2020-07-12] MEDS ORDERED: POTASSIUM CHLORIDE 20 MEQ TAB.ER.PRT ONE (21:28)
[2020-07-12] MEDS ORDERED: POTASSIUM CHLORIDE 20 MEQ TAB.ER.PRT PO ONE (21:30)
[2020-07-12 21:49] LABS: MD SCAN
[2020-07-12 22:56] VITALS: BP 131/94
== END 2020-07-12 23:08 | disposition home or self-care (01) ==
LOC: ED 22:30
DX: F10.20 Alcohol dependence, uncomplicated (principal); R07.89 Other chest pain; E87.6 Hypokalemia; R19.7 Diarrhea, unspecified; I48.91 Unspecified atrial fibrillation; I11.0 Hypertensive heart disease with heart failure; I50.9 Heart failure, unspecified; F17.200 Nicotine dependence, unspecified, uncomplicated; Z72.9 Problem related to lifestyle, unspecified; Y90.0 Blood alcohol level of less than 20 mg/100 ml
CPT/HCPCS: 36415; 71045; 80053; 80307; 83735; 84484; 85025; 93005; 99285

== ENCOUNTER 2020-10-21 06:55 | Inpatient (IN) | payer MEDICAID ==
[~2020-10-21] VITALS: Ht 193 cm; Wt 100.2 kg
[~2020-10-21 06:55] MED LIST changes: -ASPI-515 PO; +ASPI-963 PO; -FOLI-17 PO; +FOLI1TAB32 PO; -NICO-487 TD; +NICO-587 TD
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
[2020-10-21] MEDS ORDERED: ASPIRIN 81 MG TABLET CHEW ONE (07:24)
[2020-10-21] MEDS ORDERED: LORazepam 2 MG/ML, 1ML ONE ×2 (07:29→09:31)
[2020-10-21] MEDS ORDERED: THIAMINE 100MG TABLET ONE (07:30)
[2020-10-21] MEDS ORDERED: SODIUM CHLORIDE FLUSH 10ML SYR IVF ONE (07:30)
[2020-10-21] MEDS ORDERED: ASPIRIN 81 MG TABLET CHEW PO ONE (07:30)
[2020-10-21] MEDS ORDERED: SODIUM CHLORIDE 0.9% 1,000ML IVBOLUS ONE (07:30)
[2020-10-21] MEDS ORDERED: LORazepam 2 MG/ML, 1ML IVPush ONE ×3 (07:30→10:30)
[2020-10-21] MEDS ORDERED: THIAMINE 100MG TABLET PO ONE (07:30)
[2020-10-21 07:44] LABS: BASOPHILS % (AUTO) 1 % (0-1); EOSINOPHILS % (AUTO) 3 % (1-7); LYMPHOCYTES % (AUTO) 10 % (22-44); MEAN CORPUSCULAR HEMOGLOBIN 31.3 pg (27.5-34.5); MEAN CORPUSCULAR HGB CONC 33.4 g/dL (33.2-36.2); MEAN PLATELET VOLUME 8.8 fL (7.4-10.4); MONOCYTES % (AUTO) 8 % (2-9); NEUTROPHILS % (AUTO) 78 % (42-75); PLATELET COUNT 223 x10^3/uL (130-400); RED BLOOD COUNT 4.51 x10^6/uL (4.38-5.82); RED CELL DISTRIBUTION WIDTH 16.4 % (9.4-14.8)
[2020-10-21 07:49] LABS: MD NO
[2020-10-21 07:52] LABS: ALANINE AMINOTRANSFERASE 45 U/L (12-78); ALBUMIN 3.2 g/dL (3.4-5.0); ANION GAP 8 mmol/L (5-15); CALCIUM 8.6 mg/dL (8.5-10.1); CHLORIDE 103 mmol/L (98-107)
[2020-10-21 08:00] LABS: ALKALINE PHOSPHATASE 235 U/L (45-117); BILIRUBIN,TOTAL 0.7 mg/dL (0.2-1.0); CREATININE 0.89 mg/dL (0.7-1.3); TOTAL PROTEIN 8.2 g/dL (6.4-8.2); TROPONIN I < 0.015 ng/mL (0.000-0.045)
--- NOTE | 2020-10-21 08:34 | NUR ---
PATIENT RESTING IN GURNEY WATCHING TV, NADN, VSS, SIDE RAILS UP X2, CALL LIGHT WTIHIN REACH. PATIENT UP FOR RECHECK.
[2020-10-21] MEDS: POTASSIUM CHLORIDE 20 MEQ, MAGNESIUM SULFATE 1 GM, FOLIC ACID 1 MG, THIAMINE 200 MG in ... IV ONE ×2 (09:30→11:00)
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
--- NOTE | 2020-10-21 10:20 | NUR ---
REPORT GIVEN TO MAILE GOODEN FOR TRANSFER OF PATIENT CARE.
--- NOTE | 2020-10-21 10:29 | NUR ---
PATIENT TRANSFERRED TO MEDICAL TELEMETRY IN STABLE CONDITION VIA GURNEY WITH SERVICENOW ADMINISTRATOR. ALL PATIENT BELONGINGS GATHERED AND TAKEN WITH PATIENT TO FLOOR.
[2020-10-21 11:30] VITALS: BP 113/74
[2020-10-21] MEDS ORDERED: LORazepam 2 MG/ML, 1ML IV PRN ×4 (11:30)
[2020-10-21] MEDS ORDERED: ONDANSETRON 2MG/ML, 2ML IVPush PRN (11:30)
[2020-10-21] MEDS ORDERED: NITROGLYCERIN 0.4 MG BOTTLE (25 TABS) SL PRN (11:30)
[2020-10-21] MEDS ORDERED: BISACODYL 10 MG SUPP PR PRN (11:30)
[2020-10-21] MEDS ORDERED: LORazepam 1MG TABLET PO PRN ×3 (11:30)
[2020-10-21] MEDS ORDERED: ONDANSETRON ODT 4 MG PO PRN (11:30)
[2020-10-21] MEDS ORDERED: ENALAPRILAT 1.25 MG/ML, 2ML IVPush PRN (11:30)
[2020-10-21] MEDS ORDERED: ACETAMINOPHEN 325 MG TABLET PO PRN (11:30)
[2020-10-21] MEDS ORDERED: POLYETHYLENE GLYCOL 17 GM PACKET PO PRN (11:30)
[2020-10-21] MEDS ORDERED: LABETALOL 5MG/ML, 20ML IVPush PRN (11:30)
[2020-10-21] MEDS ORDERED: ERGOCALCIFEROL 50,000 UNIT CAPSULE PO SCH (11:30)
[2020-10-21] MEDS ORDERED: METO50TA6 PO (11:34)
[2020-10-21] MEDS ORDERED: OMEP20CA20 PO (11:34)
[2020-10-21] MEDS ORDERED: ATOR40TA78 PO (11:34)
[2020-10-21] MEDS ORDERED: LOSA25TA12 PO (11:34)
[2020-10-21] MEDS ORDERED: THIAMINE IV SCH ×2 (12:00→13:00)
[2020-10-21] MEDS ORDERED: FOLIC ACID IV SCH ×2 (12:00→13:00)
[2020-10-21] MEDS ORDERED: D5 IV SCH ×2 (12:00→13:00)
[2020-10-21] MEDS ORDERED: NACL IV SCH ×2 (12:00→13:00)
[2020-10-21] MEDS ORDERED: ENOXAPARIN 40 MG/0.4 ML SQ SCH (12:00)
[2020-10-21 12:23] VITALS: BP 117/70
[2020-10-21] MEDS: CHLORDIAZEPOXIDE 25 MG CAPSULE PO SCH ×3 (13:07→23:21)
[2020-10-21 13:55] VITALS: BP 134/85
[2020-10-21 13:56] LABS: TROPONIN I < 0.015 ng/mL (0.000-0.045)
[2020-10-21 19:17] VITALS: BP 133/71
[2020-10-21 19:37] LABS: TROPONIN I < 0.015 ng/mL (0.000-0.045)
[2020-10-21] MEDS: APIXABAN 5 MG TABLET PO SCH (20:54)
[2020-10-21] MEDS: ATORVASTATIN 40 MG TABLET PO SCH (20:54)
[2020-10-21] MEDS: METOPROLOL TARTRATE 50 MG TAB PO SCH (20:55)
[2020-10-21] MEDS ORDERED: METOPROLOL TARTRATE 25 MG TAB PO SCH (21:00)
[2020-10-22] LABS: AMPHETAMINE SCREEN, URINE Negative (Negative); BARBITURATE SCREEN, URINE Negative (Negative); BENZODIAZEPINE SCREEN, URINE Positive (Negative); CANNABINOID SCREEN, URINE Negative (Negative); COCAINE SCREEN, URINE Negative (Negative); METHADONE SCREEN, URINE Negative (Negative); OPIATE SCREEN, URINE Negative (Negative)
[2020-10-22 01:40] VITALS: BP 127/78
[2020-10-22 04:58] LABS: BASOPHILS % (AUTO) 1 % (0-1); EOSINOPHILS % (AUTO) 5 % (1-7); LYMPHOCYTES % (AUTO) 21 % (22-44); MEAN CORPUSCULAR HEMOGLOBIN 31.5 pg (27.5-34.5); MEAN CORPUSCULAR HGB CONC 33.4 g/dL (33.2-36.2); MEAN PLATELET VOLUME 8.8 fL (7.4-10.4); MONOCYTES % (AUTO) 12 % (2-9); NEUTROPHILS % (AUTO) 61 % (42-75); PLATELET COUNT 182 x10^3/uL (130-400); RED BLOOD COUNT 4.05 x10^6/uL (4.38-5.82); RED CELL DISTRIBUTION WIDTH 16.7 % (9.4-14.8)
[2020-10-22 05:01] LABS: MD NO
[2020-10-22 05:08] LABS: ANION GAP 4 mmol/L (5-15); CALCIUM 8.4 mg/dL (8.5-10.1); CHLORIDE 107 mmol/L (98-107); CREATININE 0.81 mg/dL (0.7-1.3)
[2020-10-22] MEDS: CHLORDIAZEPOXIDE 25 MG CAPSULE PO SCH (05:38)
[2020-10-22 07:53] VITALS: BP 144/85
[2020-10-22] MEDS: OMEPRAZOLE 20 MG CAPSULE.DR PO SCH (08:31)
[2020-10-22] MEDS: AMLODIPINE 5 MG TABLET PO SCH (08:31)
[2020-10-22] MEDS: LOSARTAN 25MG TABLET PO SCH (08:32)
[2020-10-22] MEDS: TAMSULOSIN 0.4 MG CAP.ER.24H PO SCH (08:32)
[2020-10-22] MEDS: METOPROLOL TARTRATE 50 MG TAB PO SCH ×2 (08:32→21:35)
[2020-10-22] MEDS: APIXABAN 5 MG TABLET PO SCH ×2 (08:34→21:34)
[2020-10-22] MEDS: SENNA/DOCUSATE TABLET PO SCH (08:34)
[2020-10-22] MEDS: LORazepam 0.5MG TABLET PO PRN ×3 (08:57→23:04)
[2020-10-22] MEDS ORDERED: LISINOPRIL 20 MG TABLET PO SCH (09:00)
[2020-10-22] MEDS: CHLORDIAZEPOXIDE 10 MG CAPSULE PO SCH ×3 (11:44→23:04)
[2020-10-22 12:47] VITALS: BP 111/62
[2020-10-22] MEDS: FOLIC ACID IV SCH (13:03)
[2020-10-22] MEDS: NACL IV SCH (13:03)
[2020-10-22] MEDS: THIAMINE IV SCH (13:03)
[2020-10-22] MEDS: D5 IV SCH (13:03)
[2020-10-22 20:47] VITALS: BP 141/81
[2020-10-22] MEDS: ATORVASTATIN 40 MG TABLET PO SCH (21:34)
[2020-10-23 02:17] VITALS: BP 142/83
[2020-10-23] MEDS ORDERED: CHLORDIAZEPOXIDE 25 MG CAPSULE ONE (05:36)
[2020-10-23] MEDS: CHLORDIAZEPOXIDE 10 MG CAPSULE PO SCH (05:41)
[2020-10-23] MEDS: LOSARTAN 25MG TABLET PO SCH (08:13)
[2020-10-23] MEDS: SENNA/DOCUSATE TABLET PO SCH (08:13)
[2020-10-23] MEDS: TAMSULOSIN 0.4 MG CAP.ER.24H PO SCH (08:13)
[2020-10-23] MEDS: APIXABAN 5 MG TABLET PO SCH ×2 (08:13→21:22)
[2020-10-23] MEDS: OMEPRAZOLE 20 MG CAPSULE.DR PO SCH (08:13)
[2020-10-23] MEDS: AMLODIPINE 5 MG TABLET PO SCH (08:13)
[2020-10-23] MEDS: LORazepam 0.5MG TABLET PO PRN ×2 (08:14→21:22)
[2020-10-23] MEDS: METOPROLOL TARTRATE 50 MG TAB PO SCH ×2 (08:14→21:22)
[2020-10-23 08:21] VITALS: BP 168/92
[2020-10-23] MEDS ORDERED: FUROSEMIDE 40 MG/4 ML IV ONE (09:30)
[2020-10-23] MEDS ORDERED: CHLORDIAZEPOXIDE 25 MG CAPSULE PO SCH (11:00)
[2020-10-23 12:03] LABS: MICROSCOPIC NOT IND
[2020-10-23] MEDS: D5 IV SCH (12:53)
[2020-10-23] MEDS: FOLIC ACID IV SCH (12:53)
[2020-10-23] MEDS: NACL IV SCH (12:53)
[2020-10-23] MEDS: THIAMINE IV SCH (12:53)
[2020-10-23 13:22] VITALS: BP 143/84
[2020-10-23] MEDS ORDERED: DIPHENHYDRAMINE 50 MG/ML, 1ML ONE (13:39)
[2020-10-23] MEDS ORDERED: DIPHENHYDRAMINE 50 MG/ML, 1ML IVPush ONE ×2 (14:00)
[2020-10-23 14:12] LABS: BASOPHILS % (AUTO) 1 % (0-1); EOSINOPHILS % (AUTO) 2 % (1-7); LYMPHOCYTES % (AUTO) 14 % (22-44); MEAN CORPUSCULAR HEMOGLOBIN 31.1 pg (27.5-34.5); MEAN CORPUSCULAR HGB CONC 33.2 g/dL (33.2-36.2); MEAN PLATELET VOLUME 8.8 fL (7.4-10.4); MONOCYTES % (AUTO) 11 % (2-9); NEUTROPHILS % (AUTO) 72 % (42-75); PLATELET COUNT 155 x10^3/uL (130-400); RED CELL DISTRIBUTION WIDTH 16.2 % (9.4-14.8)
[2020-10-23 14:14] LABS: ALANINE AMINOTRANSFERASE 34 U/L (12-78); ALBUMIN 2.8 g/dL (3.4-5.0); ANION GAP 6 mmol/L (5-15); CALCIUM 8.5 mg/dL (8.5-10.1); CHLORIDE 105 mmol/L (98-107)
[2020-10-23 14:17] LABS: MD NO
[2020-10-23 14:19] LABS: ALKALINE PHOSPHATASE 193 U/L (45-117); BILIRUBIN,TOTAL 0.4 mg/dL (0.2-1.0); TOTAL PROTEIN 7.3 g/dL (6.4-8.2)
[2020-10-23 19:55] VITALS: BP 149/83
[2020-10-23] MEDS: ATORVASTATIN 40 MG TABLET PO SCH (21:22)
[2020-10-24 02:17] VITALS: BP 159/91
[2020-10-24 06:56] VITALS: BP 161/98
[2020-10-24] MEDS: APIXABAN 5 MG TABLET PO SCH (08:50)
[2020-10-24] MEDS: SENNA/DOCUSATE TABLET PO SCH (08:51)
[2020-10-24] MEDS: LOSARTAN 25MG TABLET PO SCH (08:51)
[2020-10-24] MEDS: OMEPRAZOLE 20 MG CAPSULE.DR PO SCH (08:51)
[2020-10-24] MEDS: AMLODIPINE 5 MG TABLET PO SCH (08:51)
[2020-10-24] MEDS: METOPROLOL TARTRATE 50 MG TAB PO SCH (08:51)
[2020-10-24] MEDS: TAMSULOSIN 0.4 MG CAP.ER.24H PO SCH (08:51)
[2020-10-24] MEDS: LORazepam 0.5MG TABLET PO PRN (12:40)
[2020-10-24 13:09] VITALS: BP_SYST 104; BP_SYST 131; BP_DIAS 68; BP_DIAS 76
[2020-10-24] MEDS: FUROSEMIDE 20 MG/2 ML IV SCH ×2 (16:32→16:34)
[2020-10-24] MEDS ORDERED: FURO20TA3 PO (16:45)
[2020-10-24] MEDS ORDERED: FURO-93 PO (16:47)
[2020-10-24] MEDS ORDERED: FUROSEMIDE 20 MG/2 ML IV SCH (17:00)
== END 2020-10-24 16:54 | disposition left against medical advice (07) | DRG 194 ==
LOC: ED 08:01 → EDIP 09:40 → 4WST 10:31
PROVIDERS: ADMIT Hospitalist; ATTEND Hospitalist
DX: I11.0 Hypertensive heart disease with heart failure (principal); F10.231 Alcohol dependence with withdrawal delirium; D68.69 Other thrombophilia; J96.01 Acute respiratory failure with hypoxia; G93.41 Metabolic encephalopathy; F17.200 Nicotine dependence, unspecified, uncomplicated; I27.20 Pulmonary hypertension, unspecified; I48.0 Paroxysmal atrial fibrillation; I50.33 Acute on chronic diastolic (congestive) heart failure; J44.9 Chronic obstructive pulmonary disease, unspecified; F22 Delusional disorders; R07.2 Precordial pain; R59.0 Localized enlarged lymph nodes; Z79.01 Long term (current) use of anticoagulants; Z83.3 Family history of diabetes mellitus
CPT/HCPCS: 36415; 71045; 80048; 80053; 80307; 80320; 81003; 82140; 83690; 83735; 83880; 84100; 84484; 85025; 93005; 93306; 96361; 96374; 96376; 99285; G0378; J1940; J3411; J3475; J3480; J7042; G0480; J2060; J7030; J7121

== ENCOUNTER 2020-11-07 00:46 | Inpatient (IN) | payer MEDICAID ==
[~2020-11-07] VITALS: Ht 193 cm; Wt 102.4 kg
[~2020-11-07 00:46] MED LIST changes: +ATOR40TA78 PO; +FURO-93 PO; +LOSA25TA12 PO; +METO50TA6 PO; +OMEP20CA20 PO
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
[2020-11-07 01:11] LABS: BASOPHILS % (AUTO) 2 % (0-1); EOSINOPHILS % (AUTO) 3 % (1-7); LYMPHOCYTES % (AUTO) 28 % (22-44); MEAN CORPUSCULAR HEMOGLOBIN 31.1 pg (27.5-34.5); MEAN CORPUSCULAR HGB CONC 33.8 g/dL (33.2-36.2); MEAN PLATELET VOLUME 7.7 fL (7.4-10.4); MONOCYTES % (AUTO) 9 % (2-9); NEUTROPHILS % (AUTO) 59 % (42-75); PLATELET COUNT 259 x10^3/uL (130-400); RED BLOOD COUNT 4.36 x10^6/uL (4.38-5.82); RED CELL DISTRIBUTION WIDTH 16.4 % (9.4-14.8)
[2020-11-07 01:13] LABS: MD NO
[2020-11-07 01:17] LABS: ALBUMIN 2.7 g/dL (3.4-5.0); ANION GAP 8 mmol/L (5-15); CALCIUM 7.7 mg/dL (8.5-10.1); CHLORIDE 105 mmol/L (98-107); CREATININE 0.71 mg/dL (0.7-1.3)
[2020-11-07 01:21] LABS: TROPONIN I < 0.015 ng/mL (0.000-0.045)
--- NOTE | 2020-11-07 01:39 | NUR ---
patient 88% on 5L via NC. an open faced mask placed over already applied NC. patient now saturating 94% on 5L via NC with this added intervention. in NAD. call art in reach. all other VS remain stable
--- NOTE | 2020-11-07 01:51 | NUR ---
patient notified of need to place IV for CTA. patient accepting of this plan of care. call art in reach. patient 90% on 5L via NC with open faced mask over NC. OFM turned to 1L in addition. will notify CT that patient needs NRB for CTA
--- NOTE | 2020-11-07 01:56 | NUR ---
patient placed on NRB for CT.
--- NOTE | 2020-11-07 02:18 | NUR ---
patient back from CT. NRB removed and NC reapplied to face. will continue to monitor. VS remain stable otherwise. call art in reach. bilateral side rails up for safety
[2020-11-07] MEDS ORDERED: OMNIPAQUE 350 MG/ML, 75ML BOTTLE ONE (02:20)
--- NOTE | 2020-11-07 03:00 | NUR ---
dr. dove notified by this RN of patient not being oriented to the year but is oriented to the month and states to this RN that "i think i took my blood thinner (eliquis) like 4-5 days ago". no further imaging or interventions at this time. patient is not impulsive. safety maintained
--- NOTE | 2020-11-07 03:10 | NUR ---
patient resting in bed, snoring, in NAD. on 5L NC that was titrated down to 4L as patient lies on R lateral side. tolerating this as of this moment. call art in reach. safety maintained. bilateral side rails up
--- NOTE | 2020-11-07 03:53 | NUR ---
patient found to be sleeping. easily arousable. RN to bedside and found patient to have urinated in bed all over linens, without removing his pants and all over floor. RN notified patient of this and patient states "well i couldnt get up". RN showed patient that his call art was right in bed with him next to his hand fully visible. patient states "well i didnt want to bother you". RN educated patient on good personal hygiene, using call art if he needs help and proper hospital ettiquette. patient apologizes. new linens applied to bed. all of clothing removed. [address] [place] [address] gown placed on patient and urinal at bedside incentive spirometer teaching completed by this RN. patient did 10 respirations with this RN at bedside. highest patient reached was 2000mL x2 ; 1500mL x4 times and all others below 1500mL. patient had desire to continuing doing these. education of importance of IS and how this improves aeration and opening lungs reviewed with patient. he acknowledged education safety maintained. call art in reach
[2020-11-07] MEDS ORDERED: ONDANSETRON ODT 4 MG PO PRN (04:00)
[2020-11-07] MEDS ORDERED: LORazepam 1MG TABLET PO PRN ×3 (04:00)
[2020-11-07] MEDS ORDERED: PROMETHAZINE 25 MG/ML, 1ML IM PRN (04:00)
[2020-11-07] MEDS ORDERED: DOCUSATE 100 MG CAPSULE PO PRN (04:00)
[2020-11-07] MEDS ORDERED: hydrALAzine 20 MG/ML, 1ML IVPush PRN (04:00)
[2020-11-07] MEDS ORDERED: morphine SULFATE 10 MG/ML, 1ML IVPush PRN (04:00)
[2020-11-07] MEDS ORDERED: ERGOCALCIFEROL 50,000 UNIT CAPSULE PO SCH (04:00)
[2020-11-07] MEDS ORDERED: LORazepam 2 MG/ML, 1ML IV PRN (04:00)
[2020-11-07] MEDS ORDERED: BISACODYL 10 MG SUPP PR PRN (04:00)
[2020-11-07] MEDS ORDERED: POLYETHYLENE GLYCOL 17 GM PACKET PO PRN (04:00)
--- NOTE | 2020-11-07 04:12 | NUR ---
unable to complete med rec as patient does not fully know his med list and meds he is supposed to be taking. RN notified by scribe that patient was just dc'd from [facility] inpatient a few days prior
[2020-11-07] MEDS ORDERED: LORazepam 2 MG/ML, 1ML ONE (04:29)
[2020-11-07] MEDS ORDERED: FUROSEMIDE 20 MG/2 ML ONE (04:30)
[2020-11-07] MEDS ORDERED: NICOTINE 14MG/24 HR PATCH.TD24 ONE (04:30)
[2020-11-07] MEDS: NICOTINE 14MG/24 HR PATCH.TD24 TD SCH (04:32)
[2020-11-07] MEDS: LORazepam 2 MG/ML, 1ML IV PRN ×6 (04:33→23:15)
[2020-11-07] MEDS: FUROSEMIDE 20 MG/2 ML IV SCH ×3 (04:33→16:46)
--- NOTE | 2020-11-07 05:00 | NUR ---
attempted report to [id number] but nurse on break at this time. was told to call back in 15 minutes
--- NOTE | 2020-11-07 05:05 | NUR ---
patient resting in bed in NAD. currently has OFM and NC in place. 5L via NC and 1L via OFM. 91-93% on these combined. patient mostly open mouth breather during sleep. bilateral side rails up for safety. 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 patient began to show a few symptoms around time of CIWA, see flowsheet, and meds were administered. will continue to monitor and ensure safety
--- NOTE | 2020-11-07 05:34 | NUR ---
report given to Nikko GR
[2020-11-07 07:07] VITALS: BP 130/89
[2020-11-07] MEDS ORDERED: METOPROLOL TARTRATE 25 MG TAB PO SCH (09:00)
[2020-11-07] MEDS: OMEPRAZOLE 20 MG CAPSULE.DR PO SCH (09:39)
[2020-11-07] MEDS: ATORVASTATIN 40 MG TABLET PO SCH (09:40)
[2020-11-07] MEDS: OXYcodone IR 5MG TABLET PO PRN ×3 (09:40→22:20)
[2020-11-07] MEDS: THIAMINE 100MG TABLET PO SCH (09:40)
[2020-11-07] MEDS: FOLIC ACID 1 MG TABLET PO SCH (09:40)
[2020-11-07] MEDS: MULTIVITAMIN 1 TABLET PO SCH (09:40)
[2020-11-07] MEDS: APIXABAN 5 MG TABLET PO SCH ×2 (09:40→22:20)
[2020-11-07] MEDS: LIDODERM 5% PATCH TD SCH (09:41)
[2020-11-07] MEDS: TAMSULOSIN 0.4 MG CAP.ER.24H PO SCH (09:47)
[2020-11-07 14:05] VITALS: BP 149/103
[2020-11-07] MEDS ORDERED: METOPROLOL TARTRATE 50 MG TAB PO ONE (16:30)
[2020-11-07 18:53] VITALS: BP 146/97
[2020-11-07 22:15] VITALS: BP 163/94
[2020-11-07] MEDS: METOPROLOL TARTRATE 50 MG TAB PO SCH (22:20)
[2020-11-08] VITALS (8 sets, daily range): BP systolic 114–172; BP diastolic 67–100
[2020-11-08] MEDS: NICOTINE 14MG/24 HR PATCH.TD24 TD SCH (04:59)
[2020-11-08] MEDS: OXYcodone IR 5MG TABLET PO PRN (05:02)
[2020-11-08 06:17] LABS: ANION GAP 3 mmol/L (5-15); CHLORIDE 102 mmol/L (98-107)
[2020-11-08 06:18] LABS: ALBUMIN 2.6 g/dL (3.4-5.0); CALCIUM 8.5 mg/dL (8.5-10.1)
[2020-11-08 06:23] LABS: ALANINE AMINOTRANSFERASE 34 U/L (12-78); ALKALINE PHOSPHATASE 280 U/L (45-117); BILIRUBIN,TOTAL 0.8 mg/dL (0.2-1.0); CHOL/HDL RATIO 1.9; CHOLESTEROL, TOTAL 155 mg/dL (140-239); CREATININE 0.87 mg/dL (0.7-1.3); HDL CHOL % 54 % (26-37); HDL CHOLESTEROL (DIRECT) 83 mg/dL (40-60); LDL CHOLESTEROL,CALCULATED 62 mg/dL (54-169); LDL/HDL RATIO 0.7 (0.5-3.0); TOTAL PROTEIN 7.3 g/dL (6.4-8.2); TRIGLYCERIDES 52 mg/dL (50-200); VLDL CHOLESTEROL 10 mg/dL (0-25)
[2020-11-08 07:03] LABS: BASOPHILS % (AUTO) 1 % (0-1); EOSINOPHILS % (AUTO) 1 % (1-7); LYMPHOCYTES % (AUTO) 14 % (22-44); MEAN CORPUSCULAR HEMOGLOBIN 30.9 pg (27.5-34.5); MEAN CORPUSCULAR HGB CONC 33.2 g/dL (33.2-36.2); MEAN PLATELET VOLUME 7.9 fL (7.4-10.4); MONOCYTES % (AUTO) 8 % (2-9); NEUTROPHILS % (AUTO) 77 % (42-75); PLATELET COUNT 212 x10^3/uL (130-400); RED BLOOD COUNT 4.44 x10^6/uL (4.38-5.82); RED CELL DISTRIBUTION WIDTH 16.3 % (9.4-14.8)
[2020-11-08 07:05] LABS: MD NO
[2020-11-08] MEDS: FUROSEMIDE 20 MG/2 ML IV SCH ×2 (07:20→22:16)
[2020-11-08] MEDS: LORazepam 2 MG/ML, 1ML IV PRN ×5 (07:21→22:16)
[2020-11-08] MEDS: LIDODERM 5% PATCH TD SCH (09:00)
[2020-11-08] MEDS: ATORVASTATIN 40 MG TABLET PO SCH (09:41)
[2020-11-08] MEDS: MULTIVITAMIN 1 TABLET PO SCH (09:41)
[2020-11-08] MEDS: OMEPRAZOLE 20 MG CAPSULE.DR PO SCH (09:41)
[2020-11-08] MEDS: THIAMINE 100MG TABLET PO SCH (09:41)
[2020-11-08] MEDS: METOPROLOL TARTRATE 50 MG TAB PO SCH ×2 (09:41→22:15)
[2020-11-08] MEDS: APIXABAN 5 MG TABLET PO SCH ×2 (09:41→22:15)
[2020-11-08] MEDS: TAMSULOSIN 0.4 MG CAP.ER.24H PO SCH (09:41)
[2020-11-08] MEDS: FOLIC ACID 1 MG TABLET PO SCH (09:41)
[2020-11-08] MEDS: ONDANSETRON 2MG/ML, 2ML IVPush PRN (16:49)
[2020-11-09] MEDS: LORazepam 2 MG/ML, 1ML IV PRN ×9 (00:55→22:35)
[2020-11-09 01:10] VITALS: BP 109/72
[2020-11-09] MEDS: NICOTINE 14MG/24 HR PATCH.TD24 TD SCH (04:59)
[2020-11-09] MEDS: OXYcodone IR 5MG TABLET PO PRN (04:59)
[2020-11-09 05:01] VITALS: BP 148/89
[2020-11-09] MEDS: FUROSEMIDE 20 MG/2 ML IV SCH ×2 (07:29→16:22)
[2020-11-09 08:04] VITALS: BP 143/85
[2020-11-09] MEDS: THIAMINE 100MG TABLET PO SCH (11:18)
[2020-11-09] MEDS: TAMSULOSIN 0.4 MG CAP.ER.24H PO SCH (11:18)
[2020-11-09] MEDS: MULTIVITAMIN 1 TABLET PO SCH (11:18)
[2020-11-09] MEDS: APIXABAN 5 MG TABLET PO SCH ×2 (11:18→21:04)
[2020-11-09] MEDS: FOLIC ACID 1 MG TABLET PO SCH (11:18)
[2020-11-09] MEDS: ATORVASTATIN 40 MG TABLET PO SCH (11:18)
[2020-11-09] MEDS: OMEPRAZOLE 20 MG CAPSULE.DR PO SCH (11:18)
[2020-11-09] MEDS: METOPROLOL TARTRATE 50 MG TAB PO SCH ×2 (11:19→21:04)
[2020-11-09] MEDS: LIDODERM 5% PATCH TD SCH (11:41)
[2020-11-09 14:13] VITALS: BP 144/91
[2020-11-09] MEDS: ONDANSETRON 2MG/ML, 2ML IVPush PRN (14:57)
[2020-11-09 18:51] VITALS: BP 133/88
[2020-11-10 00:44] VITALS: BP 140/81
[2020-11-10] MEDS ORDERED: MAGNESIUM SULFATE PMX 4GM/100M 100 ML IVPB ONE (04:00)
[2020-11-10] MEDS: NICOTINE 14MG/24 HR PATCH.TD24 TD SCH (04:06)
[2020-11-10] MEDS: LORazepam 2 MG/ML, 1ML IV PRN (06:48)
[2020-11-10 07:10] VITALS: BP 133/84
[2020-11-10] MEDS: TAMSULOSIN 0.4 MG CAP.ER.24H PO SCH (09:20)
[2020-11-10] MEDS: APIXABAN 5 MG TABLET PO SCH ×2 (09:20→20:03)
[2020-11-10] MEDS: ATORVASTATIN 40 MG TABLET PO SCH (09:20)
[2020-11-10] MEDS: MULTIVITAMIN 1 TABLET PO SCH (09:20)
[2020-11-10] MEDS: OMEPRAZOLE 20 MG CAPSULE.DR PO SCH (09:20)
[2020-11-10] MEDS: FUROSEMIDE 20 MG/2 ML IV SCH ×2 (09:20→17:03)
[2020-11-10] MEDS: FOLIC ACID 1 MG TABLET PO SCH (09:20)
[2020-11-10] MEDS: THIAMINE 100MG TABLET PO SCH (09:21)
[2020-11-10] MEDS: METOPROLOL TARTRATE 50 MG TAB PO SCH ×2 (09:21→20:03)
[2020-11-10] MEDS: LIDODERM 5% PATCH TD SCH (09:40)
[2020-11-10] MEDS: LORazepam 1MG TABLET PO PRN (10:04)
[2020-11-10 12:18] VITALS: BP 125/90
[2020-11-10] MEDS: LORazepam 0.5MG TABLET PO PRN ×2 (13:04→17:15)
[2020-11-10 19:16] VITALS: BP 155/88
[2020-11-10 19:32] LABS: ANION GAP 6 mmol/L (5-15); CALCIUM 8.6 mg/dL (8.5-10.1); CHLORIDE 103 mmol/L (98-107); CREATININE 0.88 mg/dL (0.7-1.3)
[2020-11-11 01:29] VITALS: BP 171/124
[2020-11-11] MEDS: LORazepam 0.5MG TABLET PO PRN (03:44)
[2020-11-11] MEDS: NICOTINE 14MG/24 HR PATCH.TD24 TD SCH (03:44)
[2020-11-11 04:33] VITALS: BP 146/87
[2020-11-11 06:59] VITALS: BP 138/97
[2020-11-11] MEDS: OMEPRAZOLE 20 MG CAPSULE.DR PO SCH (08:15)
[2020-11-11] MEDS: ATORVASTATIN 40 MG TABLET PO SCH (08:15)
[2020-11-11] MEDS: FUROSEMIDE 20 MG/2 ML IV SCH (08:15)
[2020-11-11] MEDS: APIXABAN 5 MG TABLET PO SCH ×2 (08:16→21:01)
[2020-11-11] MEDS: METOPROLOL TARTRATE 50 MG TAB PO SCH ×2 (08:16→21:01)
[2020-11-11] MEDS: THIAMINE 100MG TABLET PO SCH (08:16)
[2020-11-11] MEDS: FOLIC ACID 1 MG TABLET PO SCH (08:16)
[2020-11-11] MEDS: MULTIVITAMIN 1 TABLET PO SCH (08:16)
[2020-11-11] MEDS: TAMSULOSIN 0.4 MG CAP.ER.24H PO SCH (08:16)
[2020-11-11] MEDS: LIDODERM 5% PATCH TD SCH (08:22)
[2020-11-11 13:55] VITALS: BP 120/75
[2020-11-11] MEDS ORDERED: FUROSEMIDE 20 MG TABLET PO SCH (17:00)
[2020-11-11 18:39] VITALS: BP 120/90
[2020-11-11] MEDS: LORazepam 1MG TABLET PO PRN (18:49)
[2020-11-11] MEDS: LORazepam 2 MG/ML, 1ML IV PRN ×2 (21:00→23:45)
[2020-11-12 01:19] VITALS: BP 127/96
[2020-11-12] MEDS: LORazepam 2 MG/ML, 1ML IV PRN ×6 (01:43→22:36)
[2020-11-12] MEDS ORDERED: DIAZEPAM 5 MG TABLET PO ONE (05:00)
[2020-11-12] MEDS: NICOTINE 14MG/24 HR PATCH.TD24 TD SCH (06:19)
[2020-11-12 06:43] LABS: BASOPHILS % (AUTO) 0 % (0-1); EOSINOPHILS % (AUTO) 0 % (1-7); LYMPHOCYTES % (AUTO) 9 % (22-44); MEAN CORPUSCULAR HGB CONC 33.6 g/dL (33.2-36.2); MEAN PLATELET VOLUME 8.5 fL (7.4-10.4); MONOCYTES % (AUTO) 7 % (2-9); NEUTROPHILS % (AUTO) 84 % (42-75); PLATELET COUNT 148 x10^3/uL (130-400); RED BLOOD COUNT 4.82 x10^6/uL (4.38-5.82); RED CELL DISTRIBUTION WIDTH 16.2 % (9.4-14.8)
[2020-11-12 06:51] LABS: MD NO
[2020-11-12 06:52] LABS: ALANINE AMINOTRANSFERASE 37 U/L (12-78); ALBUMIN 3.2 g/dL (3.4-5.0); ANION GAP 8 mmol/L (5-15); CALCIUM 8.7 mg/dL (8.5-10.1); CHLORIDE 100 mmol/L (98-107); CREATININE 1.08 mg/dL (0.7-1.3)
[2020-11-12 07:03] LABS: ALKALINE PHOSPHATASE 257 U/L (45-117); TOTAL PROTEIN 8.7 g/dL (6.4-8.2)
[2020-11-12] MEDS ORDERED: POTASSIUM CHLORIDE 20 MEQ PACKET PO ONE (07:30)
[2020-11-12] MEDS: LIDODERM 5% PATCH TD SCH (09:00)
[2020-11-12] MEDS: THIAMINE 100MG TABLET PO SCH (09:07)
[2020-11-12] MEDS: FOLIC ACID 1 MG TABLET PO SCH (09:07)
[2020-11-12] MEDS: APIXABAN 5 MG TABLET PO SCH ×2 (09:07→22:31)
[2020-11-12] MEDS: MULTIVITAMIN 1 TABLET PO SCH (09:07)
[2020-11-12] MEDS: TAMSULOSIN 0.4 MG CAP.ER.24H PO SCH (09:08)
[2020-11-12] MEDS: OMEPRAZOLE 20 MG CAPSULE.DR PO SCH (09:08)
[2020-11-12] MEDS: DIAZEPAM 5 MG TABLET PO PRN ×2 (09:08→17:25)
[2020-11-12] MEDS: METOPROLOL TARTRATE 50 MG TAB PO SCH ×2 (09:08→22:31)
[2020-11-12] MEDS: ATORVASTATIN 40 MG TABLET PO SCH (09:08)
[2020-11-12 12:45] VITALS: BP 136/83
[2020-11-12] MEDS ORDERED: predniSOLONE OPHTH SUSP 1%, 5ML EACHEYE SCH (16:00)
[2020-11-12 19:54] VITALS: BP 142/88
[2020-11-12] MEDS ORDERED: OPTH HOMEOPHTH SCH (21:00)
[2020-11-12] MEDS ORDERED: COMBIGAN HOMEOPHTH SCH (21:00)
[2020-11-13 02:00] VITALS: BP 136/82
[2020-11-13] MEDS: NICOTINE 14MG/24 HR PATCH.TD24 TD SCH (04:52)
[2020-11-13 05:36] LABS: ALBUMIN 2.7 g/dL (3.4-5.0); ANION GAP 7 mmol/L (5-15); CHLORIDE 105 mmol/L (98-107)
[2020-11-13 05:39] LABS: ALANINE AMINOTRANSFERASE 46 U/L (12-78); ALKALINE PHOSPHATASE 219 U/L (45-117); BILIRUBIN,TOTAL 0.4 mg/dL (0.2-1.0); CREATININE 1.22 mg/dL (0.7-1.3); TOTAL PROTEIN 7.6 g/dL (6.4-8.2)
[2020-11-13 07:29] LABS: BASOPHILS % (AUTO) 1 % (0-1); EOSINOPHILS % (AUTO) 0 % (1-7); LYMPHOCYTES % (AUTO) 9 % (22-44); MEAN CORPUSCULAR HEMOGLOBIN 31.1 pg (27.5-34.5); MEAN CORPUSCULAR HGB CONC 33.3 g/dL (33.2-36.2); MEAN PLATELET VOLUME 9.6 fL (7.4-10.4); MONOCYTES % (AUTO) 9 % (2-9); NEUTROPHILS % (AUTO) 81 % (42-75); PLATELET COUNT 107 x10^3/uL (130-400); RED BLOOD COUNT 4.52 x10^6/uL (4.38-5.82); RED CELL DISTRIBUTION WIDTH 16.2 % (9.4-14.8)
[2020-11-13 07:33] LABS: MD SCAN
[2020-11-13 08:05] VITALS: BP 181/86
[2020-11-13] MEDS ORDERED: MAGNESIUM SULFATE PMX 2GM/50ML 50 ML IV ONE (08:30)
[2020-11-13] MEDS ORDERED: POTASSIUM CHLORIDE 20 MEQ PACKET PO ONE (08:30)
[2020-11-13] MEDS: LIDODERM 5% PATCH TD SCH (08:38)
[2020-11-13] MEDS: THIAMINE 100MG TABLET PO SCH (09:07)
[2020-11-13] MEDS: ATORVASTATIN 40 MG TABLET PO SCH (09:07)
[2020-11-13] MEDS: OMEPRAZOLE 20 MG CAPSULE.DR PO SCH (09:07)
[2020-11-13] MEDS: POTASSIUM CHLORIDE 20 MEQ, MAGNESIUM SULFATE 1 GM, THIAMINE 200 MG, FOLIC ACID 1 MG in ... IV SCH (09:07)
[2020-11-13] MEDS: APIXABAN 5 MG TABLET PO SCH ×2 (09:08→21:55)
[2020-11-13] MEDS: TAMSULOSIN 0.4 MG CAP.ER.24H PO SCH (09:08)
[2020-11-13] MEDS: MULTIVITAMIN 1 TABLET PO SCH (09:08)
[2020-11-13] MEDS: METOPROLOL TARTRATE 50 MG TAB PO SCH ×2 (09:08→21:55)
[2020-11-13] MEDS: FOLIC ACID 1 MG TABLET PO SCH (09:08)
[2020-11-13] MEDS: DIAZEPAM 5 MG TABLET PO PRN ×2 (09:08→17:35)
[2020-11-13] MEDS: LORazepam 2 MG/ML, 1ML IV PRN ×2 (13:03→17:35)
[2020-11-13 14:23] VITALS: BP 159/78
[2020-11-13 19:19] VITALS: BP 149/72
[2020-11-13 22:03] VITALS: BP 141/85
[2020-11-14 00:09] VITALS: BP 126/80
[2020-11-14] MEDS: DIAZEPAM 5 MG TABLET PO PRN (01:27)
[2020-11-14] MEDS: NICOTINE 14MG/24 HR PATCH.TD24 TD SCH (05:00)
[2020-11-14 05:47] LABS: ALBUMIN 2.6 g/dL (3.4-5.0); ANION GAP 7 mmol/L (5-15); CALCIUM 8.1 mg/dL (8.5-10.1); CHLORIDE 107 mmol/L (98-107)
[2020-11-14 05:51] LABS: ALANINE AMINOTRANSFERASE 68 U/L (12-78); ALKALINE PHOSPHATASE 208 U/L (45-117); BILIRUBIN,TOTAL 0.4 mg/dL (0.2-1.0); TOTAL PROTEIN 7.5 g/dL (6.4-8.2)
[2020-11-14 06:14] LABS: MEAN CORPUSCULAR HGB CONC 33.2 g/dL (33.2-36.2); MEAN PLATELET VOLUME 8.8 fL (7.4-10.4); RED BLOOD COUNT 4.55 x10^6/uL (4.38-5.82); RED CELL DISTRIBUTION WIDTH 16.2 % (9.4-14.8)
[2020-11-14 06:50] VITALS: BP 137/85
[2020-11-14 06:59] LABS: MD YES
[2020-11-14 07:00] LABS: PLATELET COUNT 87 x10^3/uL (130-400)
[2020-11-14 07:01] LABS: <PLATELET ESTIMATE> DECREASED; BAND#(MANUAL) 0.68 x10^3/uL; BANDS%(MANUAL) 10 % (0-7); LYMPH#(MANUAL) 0.82 x10^3/uL (1-3.4); LYMPHS% (MANUAL) 12 % (22-44); MONOS#(MANUAL) 0.41 x10^3/uL (0.3-2.7); MONOS% (MANUAL) 6 % (2-9); SEGS% (MANUAL) 72 % (42-75)
[2020-11-14 07:02] LABS: <RBC MORPHOLOGY> NORMAL; LARGE PLATELETS 1+
[2020-11-14] MEDS: LORazepam 2 MG/ML, 1ML IV PRN (08:35)
[2020-11-14] MEDS: APIXABAN 5 MG TABLET PO SCH ×2 (08:36→20:52)
[2020-11-14] MEDS: TAMSULOSIN 0.4 MG CAP.ER.24H PO SCH (08:36)
[2020-11-14] MEDS: THIAMINE 100MG TABLET PO SCH (08:37)
[2020-11-14] MEDS: MULTIVITAMIN 1 TABLET PO SCH (08:37)
[2020-11-14] MEDS: METOPROLOL TARTRATE 50 MG TAB PO SCH ×2 (08:37→20:51)
[2020-11-14] MEDS: ATORVASTATIN 40 MG TABLET PO SCH (08:37)
[2020-11-14] MEDS: FOLIC ACID 1 MG TABLET PO SCH (08:37)
[2020-11-14] MEDS: OMEPRAZOLE 20 MG CAPSULE.DR PO SCH (08:37)
[2020-11-14] MEDS: LIDODERM 5% PATCH TD SCH (08:47)
[2020-11-14] MEDS: POTASSIUM ACID PHOSPHATE 500 MG TABLET.SOL PO SCH ×3 (09:32→20:52)
[2020-11-14] MEDS: POTASSIUM CHLORIDE 20 MEQ, MAGNESIUM SULFATE 1 GM, THIAMINE 200 MG, FOLIC ACID 1 MG in ... IV SCH (09:32)
[2020-11-14 12:27] VITALS: BP 165/90
[2020-11-14] MEDS: ACETAMINOPHEN 325 MG TABLET PO PRN (14:31)
[2020-11-14 19:15] VITALS: BP 132/80
[2020-11-15 00:43] VITALS: BP 136/82
[2020-11-15] MEDS: LORazepam 2 MG/ML, 1ML IV PRN ×3 (00:45→20:19)
[2020-11-15 04:35] LABS: MICROSCOPIC INDICATED
[2020-11-15] MEDS: NICOTINE 14MG/24 HR PATCH.TD24 TD SCH (05:09)
[2020-11-15 05:27] LABS: CHLORIDE 108 mmol/L (98-107)
[2020-11-15 05:35] LABS: ALANINE AMINOTRANSFERASE 112 U/L (12-78); ALBUMIN 2.4 g/dL (3.4-5.0); ALKALINE PHOSPHATASE 250 U/L (45-117); ANION GAP 6 mmol/L (5-15); BILIRUBIN,TOTAL 0.4 mg/dL (0.2-1.0); CALCIUM 7.9 mg/dL (8.5-10.1); CREATININE 1.06 mg/dL (0.7-1.3); TOTAL PROTEIN 6.9 g/dL (6.4-8.2)
[2020-11-15] MEDS ORDERED: VANCOMYCIN PER PHARMACY MC PRN (07:00)
[2020-11-15 07:01] LABS: MEAN CORPUSCULAR HGB CONC 33.4 g/dL (33.2-36.2); MEAN PLATELET VOLUME 10.5 fL (7.4-10.4); RED BLOOD COUNT 4.41 x10^6/uL (4.38-5.82); RED CELL DISTRIBUTION WIDTH 16.3 % (9.4-14.8)
[2020-11-15 07:08] VITALS: BP 126/79
[2020-11-15] MEDS: SODIUM CHLORIDE 0.9% 1,000 ML IV SCH ×2 (07:19→23:35)
[2020-11-15 07:20] LABS: MD YES; PLATELET COUNT 97 x10^3/uL (130-400)
[2020-11-15 07:22] LABS: BAND#(MANUAL) 1.89 x10^3/uL; BANDS%(MANUAL) 23 % (0-7); BASOS#(MANUAL) 0.08 x10^3/uL (0-0.1); BASOS% (MANUAL) 1 % (0-1); LYMPH#(MANUAL) 0.57 x10^3/uL (1-3.4); LYMPHS% (MANUAL) 7 % (22-44); METAMYELOCYTES# (MANUAL) 0.08 x10^3/uL (0-0); METAMYELOCYTES% (MANUAL) 1 % (0-1); MONOS#(MANUAL) 0.33 x10^3/uL (0.3-2.7); MONOS% (MANUAL) 4 % (2-9); SEG#(MANUAL) 5.25 x10^3/uL (1.8-6.8); SEGS% (MANUAL) 64 % (42-75)
[2020-11-15 07:23] LABS: <PLATELET ESTIMATE> DECREASED; ANISOCYTOSIS 1+; LARGE PLATELETS 1+; PMNS WITH VACUOLES 1+
[2020-11-15] MEDS ORDERED: PHARMACOKINETIC CONSULTATION MC ONE (07:30)
[2020-11-15] MEDS ORDERED: PHARMACOKINETIC MONITORING MC PRN (07:30)
[2020-11-15] MEDS ORDERED: VANCOMYCIN 2,500 MG in SODIUM CHLORIDE 0.9% 500 ML IV ONE (07:30)
[2020-11-15] MEDS: ACETAMINOPHEN 325 MG TABLET PO PRN (07:32)
[2020-11-15] MEDS: PIPERACILLIN/TAZO/PMX 3.375GM 50 ML IV SCH ×2 (07:46→12:57)
[2020-11-15] MEDS: OMEPRAZOLE 20 MG CAPSULE.DR PO SCH (10:49)
[2020-11-15] MEDS: POTASSIUM ACID PHOSPHATE 500 MG TABLET.SOL PO SCH ×3 (10:49→20:19)
[2020-11-15] MEDS: MULTIVITAMIN 1 TABLET PO SCH (10:50)
[2020-11-15] MEDS: APIXABAN 5 MG TABLET PO SCH ×2 (10:50→20:19)
[2020-11-15] MEDS: ATORVASTATIN 40 MG TABLET PO SCH (10:50)
[2020-11-15] MEDS: FOLIC ACID 1 MG TABLET PO SCH (10:50)
[2020-11-15] MEDS: METOPROLOL TARTRATE 50 MG TAB PO SCH ×2 (10:50→20:20)
[2020-11-15] MEDS: TAMSULOSIN 0.4 MG CAP.ER.24H PO SCH (10:50)
[2020-11-15] MEDS: THIAMINE 100MG TABLET PO SCH (10:50)
[2020-11-15] MEDS: LIDODERM 5% PATCH TD SCH (10:51)
[2020-11-15] MEDS ORDERED: GABAPENTIN 100 MG CAPSULE PO PRN (12:00)
[2020-11-15 12:28] VITALS: BP 115/75
[2020-11-15] MEDS: LORazepam 1MG TABLET PO PRN (12:58)
[2020-11-15] MEDS: POTASSIUM CHLORIDE 20 MEQ, MAGNESIUM SULFATE 1 GM, THIAMINE 200 MG, FOLIC ACID 1 MG in ... IV SCH (14:12)
[2020-11-15] MEDS: MEROPENEM 1 GM in SODIUM CHLORIDE 0.9% 100 ML IV SCH ×2 (15:21→23:36)
[2020-11-15] MEDS ORDERED: OMNIPAQUE 350 MG/ML, 100ML BOTTLE ONE (16:06)
[2020-11-15 19:22] VITALS: BP 131/72
[2020-11-16 00:06] VITALS: BP 146/83
[2020-11-16] MEDS ORDERED: VANCOMYCIN 2,000 MG in SODIUM CHLORIDE 0.9% 500 ML IV SCH (02:30)
[2020-11-16] MEDS: LORazepam 2 MG/ML, 1ML IV PRN ×2 (02:30→05:57)
[2020-11-16] MEDS: NICOTINE 14MG/24 HR PATCH.TD24 TD SCH (04:27)
[2020-11-16 06:41] LABS: MEAN CORPUSCULAR HEMOGLOBIN 30.6 pg (27.5-34.5); MEAN CORPUSCULAR HGB CONC 32.8 g/dL (33.2-36.2); MEAN PLATELET VOLUME 10.2 fL (7.4-10.4); PLATELET COUNT 91 x10^3/uL (130-400); RED BLOOD COUNT 4.32 x10^6/uL (4.38-5.82)
[2020-11-16 06:51] LABS: ALANINE AMINOTRANSFERASE 106 U/L (12-78); ALBUMIN 2.4 g/dL (3.4-5.0); ANION GAP 3 mmol/L (5-15); CALCIUM 8.2 mg/dL (8.5-10.1); CHLORIDE 110 mmol/L (98-107); CREATININE 0.86 mg/dL (0.7-1.3)
[2020-11-16 06:53] LABS: ALKALINE PHOSPHATASE 266 U/L (45-117); BILIRUBIN,TOTAL 0.5 mg/dL (0.2-1.0); TOTAL PROTEIN 6.8 g/dL (6.4-8.2)
[2020-11-16 07:05] LABS: MD YES
[2020-11-16 07:08] LABS: BAND#(MANUAL) 0.98 x10^3/uL; BANDS%(MANUAL) 12 % (0-7); LYMPH#(MANUAL) 1.07 x10^3/uL (1-3.4); LYMPHS% (MANUAL) 13 % (22-44); MONOS#(MANUAL) 0.16 x10^3/uL (0.3-2.7); MONOS% (MANUAL) 2 % (2-9); SEG#(MANUAL) 5.99 x10^3/uL (1.8-6.8); SEGS% (MANUAL) 73 % (42-75)
[2020-11-16 07:09] LABS: <PLATELET ESTIMATE> DECREASED; <PLT MORPHOLOGY> NORMAL PLT MORPH; <RBC MORPHOLOGY> NORMAL
[2020-11-16] MEDS: MEROPENEM 1 GM in SODIUM CHLORIDE 0.9% 100 ML IV SCH ×2 (08:04→17:40)
[2020-11-16] MEDS: POTASSIUM ACID PHOSPHATE 500 MG TABLET.SOL PO SCH ×3 (08:05→20:35)
[2020-11-16] MEDS: APIXABAN 5 MG TABLET PO SCH ×2 (08:05→20:35)
[2020-11-16] MEDS: FOLIC ACID 1 MG TABLET PO SCH (08:05)
[2020-11-16] MEDS: ATORVASTATIN 40 MG TABLET PO SCH (08:05)
[2020-11-16] MEDS: OMEPRAZOLE 20 MG CAPSULE.DR PO SCH (08:05)
[2020-11-16] MEDS: THIAMINE 100MG TABLET PO SCH (08:05)
[2020-11-16] MEDS: TAMSULOSIN 0.4 MG CAP.ER.24H PO SCH (08:06)
[2020-11-16] MEDS: MULTIVITAMIN 1 TABLET PO SCH (08:06)
[2020-11-16] MEDS: LIDODERM 5% PATCH TD SCH (08:09)
[2020-11-16 09:07] VITALS: BP 150/84
[2020-11-16] MEDS: OXYcodone IR 5MG TABLET PO PRN (10:48)
[2020-11-16] MEDS: METOPROLOL TARTRATE 50 MG TAB PO SCH ×2 (10:49→20:36)
[2020-11-16] MEDS: BENZONATATE 100 MG CAPSULE PO SCH ×3 (10:49→20:35)
[2020-11-16] MEDS: POTASSIUM CHLORIDE 20 MEQ, MAGNESIUM SULFATE 1 GM, THIAMINE 200 MG, FOLIC ACID 1 MG in ... IV SCH (14:34)
[2020-11-16 15:07] VITALS: BP 133/80
[2020-11-16 19:29] VITALS: BP 154/88
[2020-11-17 01:06] VITALS: BP 152/95
[2020-11-17] MEDS: MEROPENEM 1 GM in SODIUM CHLORIDE 0.9% 100 ML IV SCH ×2 (01:21→10:02)
[2020-11-17] MEDS: NICOTINE 14MG/24 HR PATCH.TD24 TD SCH (03:37)
[2020-11-17] MEDS: OXYcodone IR 5MG TABLET PO PRN ×3 (03:37→16:31)
[2020-11-17 05:27] LABS: MEAN CORPUSCULAR HEMOGLOBIN 30.9 pg (27.5-34.5); MEAN CORPUSCULAR HGB CONC 33.6 g/dL (33.2-36.2); MEAN PLATELET VOLUME 10.6 fL (7.4-10.4); RED BLOOD COUNT 4.18 x10^6/uL (4.38-5.82); RED CELL DISTRIBUTION WIDTH 16.4 % (9.4-14.8)
[2020-11-17 05:29] LABS: ALBUMIN 2.3 g/dL (3.4-5.0); ANION GAP 6 mmol/L (5-15); CALCIUM 8.2 mg/dL (8.5-10.1); CHLORIDE 110 mmol/L (98-107)
[2020-11-17 05:34] LABS: ALANINE AMINOTRANSFERASE 96 U/L (12-78); ALKALINE PHOSPHATASE 317 U/L (45-117); BILIRUBIN,TOTAL 0.5 mg/dL (0.2-1.0); CREATININE 0.76 mg/dL (0.7-1.3); TOTAL PROTEIN 6.8 g/dL (6.4-8.2)
[2020-11-17 06:33] VITALS: BP 166/89
[2020-11-17 06:45] LABS: PLATELET COUNT 94 x10^3/uL (130-400)
[2020-11-17 06:48] LABS: MD YES
[2020-11-17 06:58] LABS: EOS#(MANUAL) 0.08 x10^3/uL (0.0-0.4); EOS% (MANUAL) 1 % (1-7); LYMPH#(MANUAL) 0.94 x10^3/uL (1-3.4); LYMPHS% (MANUAL) 12 % (22-44); MONOS#(MANUAL) 0.31 x10^3/uL (0.3-2.7); MONOS% (MANUAL) 4 % (2-9)
[2020-11-17 06:59] LABS: BAND#(MANUAL) 0.39 x10^3/uL; BANDS%(MANUAL) 5 % (0-7); BASOS#(MANUAL) 0.16 x10^3/uL (0-0.1); BASOS% (MANUAL) 2 % (0-1); REACTIVE LYMPHS # (MANUAL) 0.16 x10^3/uL (0-0); REACTIVE LYMPHS % (MANUAL) 2 % (0-0); SEG#(MANUAL) 5.77 x10^3/uL (1.8-6.8); SEGS% (MANUAL) 74 % (42-75)
[2020-11-17 07:01] LABS: <RBC MORPHOLOGY> NORMAL; LARGE PLATELETS 1+; PMNS WITH VACUOLES 1+
[2020-11-17 07:03] LABS: <PLATELET ESTIMATE> DECREASED
[2020-11-17] MEDS: FOLIC ACID 1 MG TABLET PO SCH (10:29)
[2020-11-17] MEDS: MULTIVITAMIN 1 TABLET PO SCH (10:29)
[2020-11-17] MEDS: BENZONATATE 100 MG CAPSULE PO SCH ×3 (10:29→21:19)
[2020-11-17] MEDS: APIXABAN 5 MG TABLET PO SCH ×2 (10:29→21:19)
[2020-11-17] MEDS: ATORVASTATIN 40 MG TABLET PO SCH (10:29)
[2020-11-17] MEDS: POTASSIUM ACID PHOSPHATE 500 MG TABLET.SOL PO SCH (10:30)
[2020-11-17] MEDS: THIAMINE 100MG TABLET PO SCH (10:30)
[2020-11-17] MEDS: OMEPRAZOLE 20 MG CAPSULE.DR PO SCH (10:30)
[2020-11-17] MEDS: TAMSULOSIN 0.4 MG CAP.ER.24H PO SCH (10:30)
[2020-11-17] MEDS: METOPROLOL TARTRATE 50 MG TAB PO SCH ×2 (10:30→21:20)
[2020-11-17] MEDS: LIDODERM 5% PATCH TD SCH (10:33)
[2020-11-17] MEDS: CEFAZOLIN 2,000 MG in SODIUM CHLORIDE 0.9% 50 ML IV SCH ×2 (12:52→21:19)
[2020-11-17 12:57] VITALS: BP 145/83
[2020-11-17 18:47] VITALS: BP 123/78
[2020-11-18] MEDS: OXYcodone IR 5MG TABLET PO PRN ×2 (00:15→21:34)
[2020-11-18 00:44] VITALS: BP 140/82
[2020-11-18] MEDS: CEFAZOLIN 2,000 MG in SODIUM CHLORIDE 0.9% 50 ML IV SCH ×3 (04:38→21:32)
[2020-11-18] MEDS: NICOTINE 14MG/24 HR PATCH.TD24 TD SCH (04:47)
[2020-11-18 05:05] LABS: ALBUMIN 2.3 g/dL (3.4-5.0); ANION GAP 5 mmol/L (5-15); CALCIUM 8.3 mg/dL (8.5-10.1); CHLORIDE 107 mmol/L (98-107)
[2020-11-18 05:09] LABS: ALANINE AMINOTRANSFERASE 77 U/L (12-78); ALKALINE PHOSPHATASE 323 U/L (45-117); BILIRUBIN,TOTAL 0.7 mg/dL (0.2-1.0); CREATININE 0.65 mg/dL (0.7-1.3); TOTAL PROTEIN 6.7 g/dL (6.4-8.2)
[2020-11-18 05:27] LABS: BASOPHILS % (AUTO) 1 % (0-1); EOSINOPHILS % (AUTO) 2 % (1-7); LYMPHOCYTES % (AUTO) 19 % (22-44); MEAN CORPUSCULAR HEMOGLOBIN 30.9 pg (27.5-34.5); MEAN CORPUSCULAR HGB CONC 33.4 g/dL (33.2-36.2); MEAN PLATELET VOLUME 10.6 fL (7.4-10.4); MONOCYTES % (AUTO) 8 % (2-9); NEUTROPHILS % (AUTO) 70 % (42-75); PLATELET COUNT 145 x10^3/uL (130-400); RED CELL DISTRIBUTION WIDTH 15.9 % (9.4-14.8)
[2020-11-18 06:00] LABS: MD SCAN
[2020-11-18 06:55] VITALS: BP 182/110
[2020-11-18 08:17] VITALS: BP 159/98
[2020-11-18] MEDS: OMEPRAZOLE 20 MG CAPSULE.DR PO SCH (08:26)
[2020-11-18] MEDS: BENZONATATE 100 MG CAPSULE PO SCH ×3 (08:26→21:34)
[2020-11-18] MEDS: MULTIVITAMIN 1 TABLET PO SCH (08:26)
[2020-11-18] MEDS: THIAMINE 100MG TABLET PO SCH (08:26)
[2020-11-18] MEDS: ATORVASTATIN 40 MG TABLET PO SCH (08:26)
[2020-11-18] MEDS: APIXABAN 5 MG TABLET PO SCH ×2 (08:26→21:34)
[2020-11-18] MEDS: FOLIC ACID 1 MG TABLET PO SCH (08:26)
[2020-11-18] MEDS: TAMSULOSIN 0.4 MG CAP.ER.24H PO SCH (08:26)
[2020-11-18] MEDS: METOPROLOL TARTRATE 50 MG TAB PO SCH ×2 (08:26→21:34)
[2020-11-18] MEDS: LIDODERM 5% PATCH TD SCH (08:28)
[2020-11-18 12:27] VITALS: BP 126/73
[2020-11-18 20:21] VITALS: BP 148/83
[2020-11-19 00:21] VITALS: BP 171/94
[2020-11-19 00:33] VITALS: BP 180/103
[2020-11-19 01:02] VITALS: BP 153/86
[2020-11-19] MEDS: CEFAZOLIN 2,000 MG in SODIUM CHLORIDE 0.9% 50 ML IV SCH ×3 (04:41→20:06)
[2020-11-19] MEDS: NICOTINE 14MG/24 HR PATCH.TD24 TD SCH (04:41)
[2020-11-19 07:18] VITALS: BP 160/93
[2020-11-19] MEDS: THIAMINE 100MG TABLET PO SCH (08:35)
[2020-11-19] MEDS: LISINOPRIL 20 MG TABLET PO SCH (08:36)
[2020-11-19] MEDS: OMEPRAZOLE 20 MG CAPSULE.DR PO SCH (08:36)
[2020-11-19] MEDS: APIXABAN 5 MG TABLET PO SCH ×2 (08:36→20:05)
[2020-11-19] MEDS: AMLODIPINE 5 MG TABLET PO SCH (08:36)
[2020-11-19] MEDS: METOPROLOL TARTRATE 50 MG TAB PO SCH ×2 (08:36→20:05)
[2020-11-19] MEDS: ATORVASTATIN 40 MG TABLET PO SCH (08:36)
[2020-11-19] MEDS: FOLIC ACID 1 MG TABLET PO SCH (08:37)
[2020-11-19] MEDS: LIDODERM 5% PATCH TD SCH (08:37)
[2020-11-19] MEDS: MULTIVITAMIN 1 TABLET PO SCH (08:37)
[2020-11-19] MEDS: BENZONATATE 100 MG CAPSULE PO SCH ×3 (08:37→20:05)
[2020-11-19] MEDS: TAMSULOSIN 0.4 MG CAP.ER.24H PO SCH (08:37)
[2020-11-19] MEDS: OXYcodone IR 5MG TABLET PO PRN ×2 (09:33→20:11)
[2020-11-19] MEDS ORDERED: DILTIAZEM 5 MG/ML, 5ML IVPush ONE (12:00)
[2020-11-19 12:39] VITALS: BP 109/72
--- NOTE | 2020-11-19 13:46 | NUR ---
Green activity sheet posted in room. Patient and RN aware. Addendum: 11/19/20 at 1346 by Alejandro Loza PT Amended: Links added.
[2020-11-19 20:08] VITALS: BP 107/73
[2020-11-20 00:12] VITALS: BP 160/84
[2020-11-20] MEDS: NICOTINE 14MG/24 HR PATCH.TD24 TD SCH (05:00)
[2020-11-20] MEDS: CEFAZOLIN 2,000 MG in SODIUM CHLORIDE 0.9% 50 ML IV SCH ×3 (05:13→20:26)
[2020-11-20 05:50] LABS: BASOPHILS % (AUTO) 2 % (0-1); EOSINOPHILS % (AUTO) 3 % (1-7); LYMPHOCYTES % (AUTO) 26 % (22-44); MEAN CORPUSCULAR HEMOGLOBIN 30.5 pg (27.5-34.5); MEAN CORPUSCULAR HGB CONC 33.2 g/dL (33.2-36.2); MEAN PLATELET VOLUME 9.5 fL (7.4-10.4); MONOCYTES % (AUTO) 10 % (2-9); NEUTROPHILS % (AUTO) 59 % (42-75); PLATELET COUNT 287 x10^3/uL (130-400); RED BLOOD COUNT 4.14 x10^6/uL (4.38-5.82); RED CELL DISTRIBUTION WIDTH 16.6 % (9.4-14.8)
[2020-11-20 05:51] LABS: MD NO
[2020-11-20 05:55] LABS: CALCIUM 8.5 mg/dL (8.5-10.1); CHLORIDE 108 mmol/L (98-107)
[2020-11-20 06:01] LABS: ALANINE AMINOTRANSFERASE 50 U/L (12-78); ALBUMIN 2.4 g/dL (3.4-5.0); ALKALINE PHOSPHATASE 325 U/L (45-117); ANION GAP 5 mmol/L (5-15); BILIRUBIN,TOTAL 0.6 mg/dL (0.2-1.0); CREATININE 0.57 mg/dL (0.7-1.3)
[2020-11-20] MEDS: METOPROLOL TARTRATE 50 MG TAB PO SCH ×2 (08:26→20:26)
[2020-11-20] MEDS: BENZONATATE 100 MG CAPSULE PO SCH ×3 (08:29→20:26)
[2020-11-20] MEDS: LISINOPRIL 20 MG TABLET PO SCH (08:29)
[2020-11-20] MEDS: TAMSULOSIN 0.4 MG CAP.ER.24H PO SCH (08:29)
[2020-11-20] MEDS: FOLIC ACID 1 MG TABLET PO SCH (08:29)
[2020-11-20] MEDS: APIXABAN 5 MG TABLET PO SCH ×2 (08:29→20:26)
[2020-11-20] MEDS: OXYcodone IR 5MG TABLET PO PRN ×3 (08:29→20:26)
[2020-11-20] MEDS: MULTIVITAMIN 1 TABLET PO SCH (08:29)
[2020-11-20] MEDS: AMLODIPINE 5 MG TABLET PO SCH (08:29)
[2020-11-20] MEDS: OMEPRAZOLE 20 MG CAPSULE.DR PO SCH (08:29)
[2020-11-20] MEDS: THIAMINE 100MG TABLET PO SCH (08:30)
[2020-11-20] MEDS: ATORVASTATIN 40 MG TABLET PO SCH (08:30)
[2020-11-20] MEDS: LIDODERM 5% PATCH TD SCH (08:41)
[2020-11-20 09:50] VITALS: BP 120/66
[2020-11-20 14:56] VITALS: BP 110/75
[2020-11-20 19:29] VITALS: BP 110/75
[2020-11-21 01:37] VITALS: BP 128/79
[2020-11-21] MEDS: NICOTINE 14MG/24 HR PATCH.TD24 TD SCH (05:00)
[2020-11-21] MEDS: CEFAZOLIN 2,000 MG in SODIUM CHLORIDE 0.9% 50 ML IV SCH ×3 (05:12→20:36)
[2020-11-21 07:24] VITALS: BP 153/98
[2020-11-21] MEDS: BENZONATATE 100 MG CAPSULE PO SCH ×3 (08:47→20:35)
[2020-11-21] MEDS: METOPROLOL TARTRATE 50 MG TAB PO SCH ×2 (08:47→20:36)
[2020-11-21] MEDS: TAMSULOSIN 0.4 MG CAP.ER.24H PO SCH (08:47)
[2020-11-21] MEDS: ATORVASTATIN 40 MG TABLET PO SCH (08:47)
[2020-11-21] MEDS: APIXABAN 5 MG TABLET PO SCH ×2 (08:48→20:36)
[2020-11-21] MEDS: AMLODIPINE 5 MG TABLET PO SCH (08:48)
[2020-11-21] MEDS: THIAMINE 100MG TABLET PO SCH (08:48)
[2020-11-21] MEDS: MULTIVITAMIN 1 TABLET PO SCH (08:48)
[2020-11-21] MEDS: OMEPRAZOLE 20 MG CAPSULE.DR PO SCH (08:48)
[2020-11-21] MEDS: LISINOPRIL 20 MG TABLET PO SCH (08:48)
[2020-11-21] MEDS: FOLIC ACID 1 MG TABLET PO SCH (08:48)
[2020-11-21] MEDS: LIDODERM 5% PATCH TD SCH (08:49)
[2020-11-21 12:11] VITALS: BP 114/83
[2020-11-21 19:08] VITALS: BP 143/90
[2020-11-21] MEDS: OXYcodone IR 5MG TABLET PO PRN (20:36)
[2020-11-22 00:50] VITALS: BP 132/83
[2020-11-22] MEDS: NICOTINE 14MG/24 HR PATCH.TD24 TD SCH (04:48)
[2020-11-22] MEDS: CEFAZOLIN 2,000 MG in SODIUM CHLORIDE 0.9% 50 ML IV SCH (04:52)
[2020-11-22 06:13] LABS: ALBUMIN 2.5 g/dL (3.4-5.0); CALCIUM 8.4 mg/dL (8.5-10.1); CHLORIDE 108 mmol/L (98-107)
[2020-11-22 06:18] LABS: ALANINE AMINOTRANSFERASE 39 U/L (12-78); ALKALINE PHOSPHATASE 292 U/L (45-117); ANION GAP 5 mmol/L (5-15); BILIRUBIN,TOTAL 0.5 mg/dL (0.2-1.0); CREATININE 0.61 mg/dL (0.7-1.3); TOTAL PROTEIN 7.1 g/dL (6.4-8.2)
[2020-11-22 06:30] LABS: BASOPHILS % (AUTO) 1 % (0-1); EOSINOPHILS % (AUTO) 2 % (1-7); LYMPHOCYTES % (AUTO) 29 % (22-44); MEAN CORPUSCULAR HEMOGLOBIN 30.3 pg (27.5-34.5); MEAN CORPUSCULAR HGB CONC 33.5 g/dL (33.2-36.2); MEAN PLATELET VOLUME 9.2 fL (7.4-10.4); MONOCYTES % (AUTO) 13 % (2-9); NEUTROPHILS % (AUTO) 54 % (42-75); PLATELET COUNT 374 x10^3/uL (130-400); RED BLOOD COUNT 3.91 x10^6/uL (4.38-5.82); RED CELL DISTRIBUTION WIDTH 16.1 % (9.4-14.8)
[2020-11-22 07:21] LABS: MD SCAN
[2020-11-22 07:35] VITALS: BP 158/81
[2020-11-22] MEDS: TAMSULOSIN 0.4 MG CAP.ER.24H PO SCH (09:31)
[2020-11-22] MEDS: ATORVASTATIN 40 MG TABLET PO SCH (09:32)
[2020-11-22] MEDS: THIAMINE 100MG TABLET PO SCH (09:32)
[2020-11-22] MEDS: FOLIC ACID 1 MG TABLET PO SCH (09:32)
[2020-11-22] MEDS: MULTIVITAMIN 1 TABLET PO SCH (09:32)
[2020-11-22] MEDS: OMEPRAZOLE 20 MG CAPSULE.DR PO SCH (09:32)
[2020-11-22] MEDS: APIXABAN 5 MG TABLET PO SCH ×2 (09:32→21:51)
[2020-11-22] MEDS: AMLODIPINE 5 MG TABLET PO SCH (09:32)
[2020-11-22] MEDS: BENZONATATE 100 MG CAPSULE PO SCH ×3 (09:33→21:00)
[2020-11-22] MEDS: METOPROLOL TARTRATE 50 MG TAB PO SCH ×2 (09:33→21:51)
[2020-11-22] MEDS: LISINOPRIL 20 MG TABLET PO SCH (09:33)
[2020-11-22] MEDS: LIDODERM 5% PATCH TD SCH (09:39)
[2020-11-22 12:36] VITALS: BP 120/71
[2020-11-22] MEDS: CEFAZOLIN PMX 2GM/50ML 50 ML IVPB SCH ×2 (13:18→21:49)
[2020-11-22] MEDS: OXYcodone IR 5MG TABLET PO PRN ×2 (16:53→21:50)
[2020-11-22 19:41] VITALS: BP 120/77
[2020-11-23 00:33] VITALS: BP 132/79
[2020-11-23] MEDS: CEFAZOLIN PMX 2GM/50ML 50 ML IVPB SCH ×3 (05:31→20:26)
[2020-11-23] MEDS: NICOTINE 14MG/24 HR PATCH.TD24 TD SCH (05:32)
[2020-11-23 06:42] VITALS: BP 129/67
[2020-11-23] MEDS: OMEPRAZOLE 20 MG CAPSULE.DR PO SCH (08:44)
[2020-11-23] MEDS: FOLIC ACID 1 MG TABLET PO SCH (08:44)
[2020-11-23] MEDS: APIXABAN 5 MG TABLET PO SCH ×2 (08:44→20:27)
[2020-11-23] MEDS: TAMSULOSIN 0.4 MG CAP.ER.24H PO SCH (08:44)
[2020-11-23] MEDS: ATORVASTATIN 40 MG TABLET PO SCH (08:44)
[2020-11-23] MEDS: THIAMINE 100MG TABLET PO SCH (08:44)
[2020-11-23] MEDS: MULTIVITAMIN 1 TABLET PO SCH (08:44)
[2020-11-23] MEDS: BENZONATATE 100 MG CAPSULE PO SCH ×3 (08:44→20:26)
[2020-11-23] MEDS: LISINOPRIL 20 MG TABLET PO SCH (08:44)
[2020-11-23] MEDS: AMLODIPINE 5 MG TABLET PO SCH (08:44)
[2020-11-23] MEDS: LIDODERM 5% PATCH TD SCH (08:45)
[2020-11-23] MEDS: METOPROLOL TARTRATE 50 MG TAB PO SCH ×2 (08:45→20:27)
[2020-11-23 13:01] VITALS: BP 127/73
[2020-11-23 20:28] VITALS: BP 121/75
[2020-11-23] MEDS: OXYcodone IR 5MG TABLET PO PRN (20:37)
[2020-11-24 01:13] VITALS: BP 140/77
[2020-11-24] MEDS: NICOTINE 14MG/24 HR PATCH.TD24 TD SCH (05:08)
[2020-11-24] MEDS: CEFAZOLIN PMX 2GM/50ML 50 ML IVPB SCH ×3 (05:08→20:47)
[2020-11-24 07:11] VITALS: BP 165/94
[2020-11-24] MEDS: METOPROLOL TARTRATE 50 MG TAB PO SCH ×2 (09:20→20:48)
[2020-11-24] MEDS: LISINOPRIL 20 MG TABLET PO SCH (09:22)
[2020-11-24] MEDS: FOLIC ACID 1 MG TABLET PO SCH (09:23)
[2020-11-24] MEDS: THIAMINE 100MG TABLET PO SCH (09:23)
[2020-11-24] MEDS: BENZONATATE 100 MG CAPSULE PO SCH ×3 (09:24→20:47)
[2020-11-24] MEDS: TAMSULOSIN 0.4 MG CAP.ER.24H PO SCH (09:24)
[2020-11-24] MEDS: ATORVASTATIN 40 MG TABLET PO SCH (09:25)
[2020-11-24] MEDS: AMLODIPINE 5 MG TABLET PO SCH (09:25)
[2020-11-24] MEDS: MULTIVITAMIN 1 TABLET PO SCH (09:26)
[2020-11-24] MEDS: APIXABAN 5 MG TABLET PO SCH ×2 (09:27→20:48)
[2020-11-24] MEDS: OMEPRAZOLE 20 MG CAPSULE.DR PO SCH (09:27)
[2020-11-24] MEDS: LIDODERM 5% PATCH TD SCH (09:29)
[2020-11-24 11:46] VITALS: BP 126/79
[2020-11-24 17:08] VITALS: BP 134/97
[2020-11-24] MEDS: OXYcodone IR 5MG TABLET PO PRN (17:27)
[2020-11-24 19:40] VITALS: BP 142/86
[2020-11-25 02:23] VITALS: BP 151/94
[2020-11-25] MEDS: OXYcodone IR 5MG TABLET PO PRN ×2 (03:28→16:02)
[2020-11-25] MEDS: NICOTINE 14MG/24 HR PATCH.TD24 TD SCH ×2 (05:00→05:14)
[2020-11-25] MEDS: CEFAZOLIN PMX 2GM/50ML 50 ML IVPB SCH ×2 (05:14→13:03)
[2020-11-25 06:58] VITALS: BP 152/94
[2020-11-25] MEDS: AMLODIPINE 5 MG TABLET PO SCH (09:57)
[2020-11-25] MEDS: METOPROLOL TARTRATE 50 MG TAB PO SCH ×2 (09:57→20:04)
[2020-11-25] MEDS: BENZONATATE 100 MG CAPSULE PO SCH ×3 (09:57→20:04)
[2020-11-25] MEDS: FOLIC ACID 1 MG TABLET PO SCH (09:57)
[2020-11-25] MEDS: MULTIVITAMIN 1 TABLET PO SCH (09:57)
[2020-11-25] MEDS: ATORVASTATIN 40 MG TABLET PO SCH (09:57)
[2020-11-25] MEDS: TAMSULOSIN 0.4 MG CAP.ER.24H PO SCH (09:57)
[2020-11-25] MEDS: THIAMINE 100MG TABLET PO SCH (09:58)
[2020-11-25] MEDS: LISINOPRIL 20 MG TABLET PO SCH (09:58)
[2020-11-25] MEDS: APIXABAN 5 MG TABLET PO SCH ×2 (09:58→20:04)
[2020-11-25] MEDS: OMEPRAZOLE 20 MG CAPSULE.DR PO SCH (09:58)
[2020-11-25] MEDS: LIDODERM 5% PATCH TD SCH (10:01)
[2020-11-25 13:44] VITALS: BP 151/79
[2020-11-25] MEDS: FUROSEMIDE 20 MG TABLET PO SCH (15:06)
[2020-11-25] MEDS ORDERED: ARTIFICIAL TEARS 15 DROP/ML BOTTLE EACHEYE PRN (16:00)
[2020-11-25 19:23] VITALS: BP 146/73
[2020-11-25] MEDS ORDERED: CEFAZOLIN PMX 2GM/50ML 50 ML IVPB SCH (21:00)
[2020-11-26 02:00] VITALS: BP 113/68
[2020-11-26] MEDS: NICOTINE 14MG/24 HR PATCH.TD24 TD SCH (05:01)
[2020-11-26 05:14] LABS: HCT (SEDRATE) 35.2 % (39.2-51.8)
[2020-11-26 05:18] LABS: BASOPHILS % (AUTO) 2 % (0-1); EOSINOPHILS % (AUTO) 3 % (1-7); LYMPHOCYTES % (AUTO) 34 % (22-44); MEAN CORPUSCULAR HEMOGLOBIN 31.1 pg (27.5-34.5); MEAN CORPUSCULAR HGB CONC 33.5 g/dL (33.2-36.2); MEAN PLATELET VOLUME 8.7 fL (7.4-10.4); MONOCYTES % (AUTO) 16 % (2-9); NEUTROPHILS % (AUTO) 46 % (42-75); PLATELET COUNT 407 x10^3/uL (130-400); RED BLOOD COUNT 3.77 x10^6/uL (4.38-5.82)
[2020-11-26 05:21] LABS: MD NO
[2020-11-26 05:29] LABS: ALBUMIN 2.5 g/dL (3.4-5.0); ANION GAP 4 mmol/L (5-15); CALCIUM 8.8 mg/dL (8.5-10.1); CHLORIDE 108 mmol/L (98-107)
[2020-11-26 05:40] LABS: ALANINE AMINOTRANSFERASE 19 U/L (12-78); ALKALINE PHOSPHATASE 224 U/L (45-117); BILIRUBIN,TOTAL 0.6 mg/dL (0.2-1.0); CREATININE 0.74 mg/dL (0.7-1.3); TOTAL PROTEIN 7.2 g/dL (6.4-8.2)
[2020-11-26 06:56] VITALS: BP 152/98
[2020-11-26] MEDS: MULTIVITAMIN 1 TABLET PO SCH (08:39)
[2020-11-26] MEDS: ATORVASTATIN 40 MG TABLET PO SCH (08:40)
[2020-11-26] MEDS: THIAMINE 100MG TABLET PO SCH (08:40)
[2020-11-26] MEDS: OMEPRAZOLE 20 MG CAPSULE.DR PO SCH (08:40)
[2020-11-26] MEDS: FOLIC ACID 1 MG TABLET PO SCH (08:40)
[2020-11-26] MEDS: TAMSULOSIN 0.4 MG CAP.ER.24H PO SCH (08:40)
[2020-11-26] MEDS: BENZONATATE 100 MG CAPSULE PO SCH ×2 (08:40→16:00)
[2020-11-26] MEDS: AMLODIPINE 5 MG TABLET PO SCH (08:40)
[2020-11-26] MEDS: CEPHALEXIN 500 MG CAPSULE PO SCH ×2 (08:40→16:00)
[2020-11-26] MEDS: APIXABAN 5 MG TABLET PO SCH (08:40)
[2020-11-26] MEDS: FUROSEMIDE 20 MG TABLET PO SCH (08:41)
[2020-11-26] MEDS: METOPROLOL TARTRATE 50 MG TAB PO SCH (08:41)
[2020-11-26] MEDS: LISINOPRIL 20 MG TABLET PO SCH (08:43)
[2020-11-26] MEDS: LIDODERM 5% PATCH TD SCH (08:45)
[2020-11-26 14:41] VITALS: BP 120/76
[2020-11-26] MEDS ORDERED: METO25TA35 PO (15:45)
[2020-11-26] MEDS ORDERED: CEPH-376 PO (15:45)
[2020-11-26] MEDS ORDERED: AMLO-150 PO (15:45)
[2020-11-26] MEDS ORDERED: ATOR40TA78 PO (15:45)
[2020-11-26] MEDS ORDERED: APIX5TAB PO (15:45)
[2020-11-26] MEDS ORDERED: LISI-170 PO (15:45)
[2020-11-26] MEDS ORDERED: THIA100T67 PO (15:45)
[2020-11-26] MEDS ORDERED: FOLI1TAB32 PO (15:45)
[2020-11-26] MEDS ORDERED: FURO-93 PO (15:45)
[2020-11-26] MEDS ORDERED: HYDR25CA PO (16:08)
== END 2020-11-26 17:00 | disposition home or self-care (01) | DRG 720 ==
LOC: ED 04:04 → EDIP 04:18 → 4EST 05:55 → 4WST 11-17 10:19 → DCLOUNGE 11-26 16:45
PROVIDERS: ADMIT Internal Medicine; ATTEND Internal Medicine
DX: A40.0 Sepsis due to streptococcus, group A (principal); B95.4 Other streptococcus as the cause of diseases classified elsewhere; B96.89 Other specified bacterial agents as the cause of diseases classified elsewhere; D68.59 Other primary thrombophilia; D64.9 Anemia, unspecified; I50.33 Acute on chronic diastolic (congestive) heart failure; J18.9 Pneumonia, unspecified organism; J44.0 Chronic obstructive pulmonary disease with (acute) lower respiratory infection; J44.1 Chronic obstructive pulmonary disease with (acute) exacerbation; J96.21 Acute and chronic respiratory failure with hypoxia; I80.8 Phlebitis and thrombophlebitis of other sites; I48.0 Paroxysmal atrial fibrillation; I47.2 Ventricular tachycardia; G62.9 Polyneuropathy, unspecified; I11.0 Hypertensive heart disease with heart failure; I27.20 Pulmonary hypertension, unspecified; J98.11 Atelectasis; K76.0 Fatty (change of) liver, not elsewhere classified; K80.20 Calculus of gallbladder without cholecystitis without obstruction; N40.0 Benign prostatic hyperplasia without lower urinary tract symptoms; Z59.0 Homelessness; Z79.01 Long term (current) use of anticoagulants; Z83.3 Family history of diabetes mellitus; Z91.14 Patient's other noncompliance with medication regimen; Z99.81 Dependence on supplemental oxygen; W18.2XXA Fall in (into) shower or empty bathtub, initial encounter; S27.329A Contusion of lung, unspecified, initial encounter; Y04.0XXA Assault by unarmed brawl or fight, initial encounter; Y92.002 Bathroom of unspecified non-institutional (private) residence as the place of occurrence of the external cause; Y93.E1 Activity, personal bathing and showering; S22.41XA Multiple fractures of ribs, right side, initial encounter for closed fracture; S05.92XA Unspecified injury of left eye and orbit, initial encounter; F17.210 Nicotine dependence, cigarettes, uncomplicated; F10.231 Alcohol dependence with withdrawal delirium; E78.5 Hyperlipidemia, unspecified; D69.59 Other secondary thrombocytopenia
CPT/HCPCS: 36415; 71045; 71275; 74177; 76700; 80048; 80053; 80061; 81001; 82040; 82140; 83036; 83605; 83735; 83880; 84100; 84145; 84443; 84484; 85025; 85651; 86140; 87040; 87147; 87181; 93005; 99406; G0378; J0690; J2185; J2405; J2543; J3370; J3411; J3475; J3480; Q9967; J0360; J1940; J2060; J7030; J7040

== ENCOUNTER 2020-12-21 08:54 | Inpatient (IN) | payer MEDICAID ==
[~2020-12-21] VITALS: Ht 193 cm; Wt 102.1 kg
[~2020-12-21 08:54] MED LIST changes: +CEPH-376 PO; +POTA-143 PO; -POTA20TA6 PO
--- NOTE | 2020-12-21 09:18 | NUR ---
PT PLACED ON ALL ROOM MONITORING. EKG COMPLETED AT BS. RESP ISO CART AND SIGNAGE AT DOORWAY. CALL LIGHT WITHIN REACH, WARM BLANKET PROVIDED.
[2020-12-21] MEDS ORDERED: SODIUM CHLORIDE FLUSH 10ML SYR IVF ONE (09:30)
[2020-12-21] MEDS ORDERED: SODIUM CHLORIDE 0.9% 1,000 ML IV ONE (09:30)
[2020-12-21] MEDS ORDERED: LORazepam 2 MG/ML, 1ML IVPush PRN (09:30)
[2020-12-21] MEDS ORDERED: THIAMINE 100MG TABLET PO ONE (09:30)
--- NOTE | 2020-12-21 09:37 | NUR ---
IV PLACED, LABS DRAWN WITH START INCLUDING BC X 1. PULSE OX DIPPING TO 87%, PT PLACED ON OXYGEN VIA NC AT 3LITERS.
[2020-12-21] MEDS ORDERED: THIAMINE 100MG TABLET ONE (09:48)
[2020-12-21] MEDS ORDERED: LORazepam 2 MG/ML, 1ML ONE (09:48)
[2020-12-21 09:52] LABS: ALANINE AMINOTRANSFERASE 45 U/L (12-78); ANION GAP 7 mmol/L (5-15); CALCIUM 8.1 mg/dL (8.5-10.1); CHLORIDE 94 mmol/L (98-107); CREATININE 0.64 mg/dL (0.7-1.3)
[2020-12-21 09:54] LABS: BASOPHILS % (AUTO) 0 % (0-1); EOSINOPHILS % (AUTO) 1 % (1-7); LYMPHOCYTES % (AUTO) 13 % (22-44); MEAN CORPUSCULAR HEMOGLOBIN 31.5 pg (27.5-34.5); MEAN CORPUSCULAR HGB CONC 33.9 g/dL (33.2-36.2); MONOCYTES % (AUTO) 9 % (2-9); NEUTROPHILS % (AUTO) 77 % (42-75); PLATELET COUNT 160 x10^3/uL (130-400); RED BLOOD COUNT 3.95 x10^6/uL (4.38-5.82); RED CELL DISTRIBUTION WIDTH 15.3 % (9.4-14.8)
[2020-12-21 09:56] LABS: ALKALINE PHOSPHATASE 383 U/L (45-117); BILIRUBIN,TOTAL 1.2 mg/dL (0.2-1.0); TOTAL PROTEIN 7.9 g/dL (6.4-8.2)
--- NOTE | 2020-12-21 10:31 | NUR ---
PT SLEEPING, EASILY AROUSED. OXYGEN TURNED OFF FOR TRIAL ON RA. CONTINUE TO MONITOR.
--- NOTE | 2020-12-21 10:44 | NUR ---
PT DESAT TO 83% ON RA. NC AT 3LITERS IN PLACE AGAIN WITH IMPROVEMENT TO 91%. ERP NOTIFIED.
[2020-12-21] MEDS ORDERED: HYDROcodone/APAP 5/325 TABLET PO PRN (11:30)
[2020-12-21] MEDS ORDERED: ACETAMINOPHEN 325 MG TABLET PO PRN (11:30)
[2020-12-21] MEDS ORDERED: DILTIAZEM 5 MG/ML, 5ML IVPush PRN (11:30)
[2020-12-21] MEDS ORDERED: NITROGLYCERIN 0.4 MG BOTTLE (25 TABS) SL PRN (11:30)
[2020-12-21] MEDS ORDERED: hydrALAzine 20 MG/ML, 1ML IVPush PRN (11:30)
--- NOTE | 2020-12-21 11:37 | NUR ---
COVID SWAB OBTAINED, WALKED TO LAB.
[2020-12-21 12:01] LABS: HCT (SEDRATE) 36.7 % (39.2-51.8)
--- NOTE | 2020-12-21 12:44 | NUR ---
PT SLEEPING, NAD. CALL LIGHT WITHIN REACH.
--- NOTE | 2020-12-21 13:35 | NUR ---
MEAL TRAY PROVIDED AT 1320. REPORT TO ELISSA CHAMBERS READY FOR TRANSPORT TO FLOOR.
[2020-12-21 14:09] VITALS: BP 133/77
[2020-12-21] MEDS ORDERED: LORazepam 1MG TABLET PO PRN (15:00)
[2020-12-21] MEDS ORDERED: CHLORDIAZEPOXIDE 10 MG CAPSULE PO SCH (15:00)
[2020-12-21] MEDS ORDERED: LORazepam 2 MG/ML, 1ML IV PRN ×4 (15:00)
[2020-12-21] MEDS: METOPROLOL TARTRATE 25 MG TAB PO SCH ×2 (15:16→22:18)
[2020-12-21] MEDS: APIXABAN 5 MG TABLET PO SCH ×2 (15:16→22:18)
[2020-12-21] MEDS ORDERED: CHLORDIAZEPOXIDE 25 MG CAPSULE PO SCH ×2 (15:30→21:30)
[2020-12-21] MEDS: CHLORDIAZEPOXIDE 25 MG CAPSULE PO SCH ×2 (16:43→22:18)
[2020-12-21] MEDS: LORazepam 0.5MG TABLET PO PRN (18:20)
[2020-12-21 19:38] VITALS: BP 147/79
[2020-12-21] MEDS ORDERED: MELATONIN 5 MG TABLET PO PRN (21:00)
[2020-12-22 01:54] VITALS: BP 153/92
[2020-12-22 01:58] VITALS: BP 128/80
[2020-12-22 03:32] LABS: CLOSTRIDIUM DIFFICILE ANTIGEN NEGATIVE; CLOSTRIDIUM DIFFICILE TOXIN NEGATIVE (Negative)
[2020-12-22] MEDS: CHLORDIAZEPOXIDE 25 MG CAPSULE PO SCH ×4 (05:06→22:20)
[2020-12-22 05:48] LABS: BASOPHILS % (AUTO) 1 % (0-1); EOSINOPHILS % (AUTO) 1 % (1-7); LYMPHOCYTES % (AUTO) 19 % (22-44); MEAN CORPUSCULAR HEMOGLOBIN 31.3 pg (27.5-34.5); MEAN CORPUSCULAR HGB CONC 33.3 g/dL (33.2-36.2); MEAN PLATELET VOLUME 8.2 fL (7.4-10.4); MONOCYTES % (AUTO) 11 % (2-9); NEUTROPHILS % (AUTO) 68 % (42-75); PLATELET COUNT 145 x10^3/uL (130-400); RED BLOOD COUNT 3.59 x10^6/uL (4.38-5.82)
[2020-12-22 06:04] LABS: CHLORIDE 97 mmol/L (98-107)
[2020-12-22 06:17] LABS: ALANINE AMINOTRANSFERASE 62 U/L (12-78); ALBUMIN 2.6 g/dL (3.4-5.0); ALKALINE PHOSPHATASE 394 U/L (45-117); ANION GAP 5 mmol/L (5-15); BILIRUBIN,TOTAL 1.5 mg/dL (0.2-1.0); TOTAL PROTEIN 7.1 g/dL (6.4-8.2)
[2020-12-22 07:11] VITALS: BP 145/93
[2020-12-22] MEDS ORDERED: MAGNESIUM SULFATE PMX 2GM/50ML 50 ML IV ONE (07:30)
[2020-12-22] MEDS: THIAMINE 100MG TABLET PO SCH (08:28)
[2020-12-22] MEDS: METOPROLOL TARTRATE 25 MG TAB PO SCH ×2 (08:29→21:45)
[2020-12-22] MEDS: ATORVASTATIN 40 MG TABLET PO SCH (08:29)
[2020-12-22] MEDS: FOLIC ACID 1 MG TABLET PO SCH (08:29)
[2020-12-22] MEDS: APIXABAN 5 MG TABLET PO SCH ×2 (08:29→21:45)
[2020-12-22] MEDS: LORazepam 0.5MG TABLET PO PRN ×2 (08:56→13:15)
[2020-12-22 14:16] VITALS: BP 135/90
[2020-12-22 20:48] VITALS: BP 146/77
[2020-12-23 00:05] VITALS: BP 134/92
[2020-12-23 05:30] LABS: BASOPHILS % (AUTO) 1 % (0-1); EOSINOPHILS % (AUTO) 3 % (1-7); LYMPHOCYTES % (AUTO) 22 % (22-44); MEAN CORPUSCULAR HEMOGLOBIN 32.1 pg (27.5-34.5); MEAN CORPUSCULAR HGB CONC 34.2 g/dL (33.2-36.2); MEAN PLATELET VOLUME 8.8 fL (7.4-10.4); MONOCYTES % (AUTO) 13 % (2-9); NEUTROPHILS % (AUTO) 62 % (42-75); PLATELET COUNT 123 x10^3/uL (130-400); RED BLOOD COUNT 3.38 x10^6/uL (4.38-5.82); RED CELL DISTRIBUTION WIDTH 15.8 % (9.4-14.8)
[2020-12-23 05:35] LABS: ALANINE AMINOTRANSFERASE 76 U/L (12-78); ALBUMIN 2.6 g/dL (3.4-5.0); ANION GAP 5 mmol/L (5-15); CALCIUM 8.4 mg/dL (8.5-10.1); CHLORIDE 102 mmol/L (98-107); CREATININE 0.72 mg/dL (0.7-1.3)
[2020-12-23 05:37] LABS: ALKALINE PHOSPHATASE 396 U/L (45-117)
[2020-12-23] MEDS: CHLORDIAZEPOXIDE 25 MG CAPSULE PO SCH (06:02)
[2020-12-23 06:24] VITALS: BP 151/105
[2020-12-23] MEDS: THIAMINE 100MG TABLET PO SCH (08:32)
[2020-12-23] MEDS: APIXABAN 5 MG TABLET PO SCH ×2 (08:32→20:28)
[2020-12-23] MEDS: ATORVASTATIN 40 MG TABLET PO SCH (08:32)
[2020-12-23] MEDS: METOPROLOL TARTRATE 25 MG TAB PO SCH ×2 (08:32→20:28)
[2020-12-23] MEDS: FOLIC ACID 1 MG TABLET PO SCH (08:32)
[2020-12-23 08:36] VITALS: BP 150/86
[2020-12-23 12:13] VITALS: BP 146/94
[2020-12-23 19:54] VITALS: BP 151/96
[2020-12-23 20:27] VITALS: BP 174/108
[2020-12-23] MEDS: LORazepam 0.5MG TABLET PO PRN (20:28)
[2020-12-24 01:23] VITALS: BP 146/92
[2020-12-24 05:33] LABS: ALBUMIN 2.9 g/dL (3.4-5.0); ANION GAP 4 mmol/L (5-15); CALCIUM 8.7 mg/dL (8.5-10.1); CHLORIDE 104 mmol/L (98-107)
[2020-12-24 05:37] LABS: ALANINE AMINOTRANSFERASE 73 U/L (12-78); ALKALINE PHOSPHATASE 381 U/L (45-117); BASOPHILS % (AUTO) 1 % (0-1); BILIRUBIN,TOTAL 0.9 mg/dL (0.2-1.0); CREATININE 0.68 mg/dL (0.7-1.3); EOSINOPHILS % (AUTO) 4 % (1-7); LYMPHOCYTES % (AUTO) 20 % (22-44); MEAN CORPUSCULAR HEMOGLOBIN 31.8 pg (27.5-34.5); MEAN CORPUSCULAR HGB CONC 33.2 g/dL (33.2-36.2); MEAN PLATELET VOLUME 8.4 fL (7.4-10.4); MONOCYTES % (AUTO) 15 % (2-9); NEUTROPHILS % (AUTO) 60 % (42-75); PLATELET COUNT 128 x10^3/uL (130-400); RED BLOOD COUNT 3.41 x10^6/uL (4.38-5.82); RED CELL DISTRIBUTION WIDTH 15.5 % (9.4-14.8); TOTAL PROTEIN 7.6 g/dL (6.4-8.2)
[2020-12-24] MEDS ORDERED: FUROSEMIDE 20 MG TABLET PO SCH (09:00)
[2020-12-24] MEDS ORDERED: POTASSIUM CHLORIDE 20 MEQ TAB.ER.PRT PO SCH (09:00)
[2021-01-12] MEDS ORDERED: AMOX1TAB12 PO ×2 (13:07)
[2021-02-14] MEDS ORDERED: APIX5TAB PO ×2 (13:34)
[2021-02-14] MEDS ORDERED: DILT30TA33 PO ×2 (13:34)
== END 2020-12-24 07:48 | disposition left against medical advice (07) | DRG 133 ==
LOC: ED 09:31 → SUATTDRO 11:01 → EDIP 11:01 → 4WST 13:56
PROVIDERS: ADMIT Hospitalist; ATTEND Family Medicine
DX: J96.21 Acute and chronic respiratory failure with hypoxia (principal); I11.0 Hypertensive heart disease with heart failure; I27.20 Pulmonary hypertension, unspecified; I50.32 Chronic diastolic (congestive) heart failure; D64.9 Anemia, unspecified; E78.5 Hyperlipidemia, unspecified; F10.239 Alcohol dependence with withdrawal, unspecified; F17.200 Nicotine dependence, unspecified, uncomplicated; I48.91 Unspecified atrial fibrillation; J44.9 Chronic obstructive pulmonary disease, unspecified; N40.0 Benign prostatic hyperplasia without lower urinary tract symptoms; Z20.822 Contact with and (suspected) exposure to COVID-19; R00.0 Tachycardia, unspecified; R53.81 Other malaise; Z91.14 Patient's other noncompliance with medication regimen
CPT/HCPCS: 36415; 71045; 80053; 83690; 83735; 83880; 84100; 84145; 85025; 85379; 85651; 87324; 93005; 96374; 99285; G0378; J2060; J3475; J7030; U0003

== ENCOUNTER 2020-12-30 15:02 | Inpatient (IN) | payer MEDICAID ==
[~2020-12-30] VITALS: Ht 193 cm; Wt 103.9 kg
[~2020-12-30 15:02] MED LIST changes: -POTA-143 PO; +POTA20TA6 PO
[2020-12-30] MEDS ORDERED: SODIUM CHLORIDE FLUSH 10ML SYR IVF ONE (16:00)
[2020-12-30 16:41] LABS: ALANINE AMINOTRANSFERASE 50 U/L (12-78); ALBUMIN 2.6 g/dL (3.4-5.0); ANION GAP 7 mmol/L (5-15); CALCIUM 7.8 mg/dL (8.5-10.1); CHLORIDE 101 mmol/L (98-107); CREATININE 0.48 mg/dL (0.7-1.3)
[2020-12-30 16:43] LABS: ALKALINE PHOSPHATASE 397 U/L (45-117); BILIRUBIN,TOTAL 0.3 mg/dL (0.2-1.0); TOTAL PROTEIN 7.4 g/dL (6.4-8.2)
[2020-12-30 16:56] LABS: BASOPHILS % (AUTO) 1 % (0-1); EOSINOPHILS % (AUTO) 1 % (1-7); LYMPHOCYTES % (AUTO) 9 % (22-44); MEAN CORPUSCULAR HEMOGLOBIN 31.3 pg (27.5-34.5); MEAN CORPUSCULAR HGB CONC 33.5 g/dL (33.2-36.2); MEAN PLATELET VOLUME 7.4 fL (7.4-10.4); MONOCYTES % (AUTO) 5 % (2-9); NEUTROPHILS % (AUTO) 85 % (42-75); PLATELET COUNT 304 x10^3/uL (130-400); RED BLOOD COUNT 3.82 x10^6/uL (4.38-5.82); RED CELL DISTRIBUTION WIDTH 15.8 % (9.4-14.8)
[2020-12-30 17:18] LABS: MD SCAN
[2020-12-30] MEDS ORDERED: AZITHROMYCIN 500 MG in SODIUM CHLORIDE 0.9% 250 ML IVPB ONE (17:30)
[2020-12-30] MEDS ORDERED: SODIUM CHLORIDE FLUSH 10ML SYR IVF PRN (17:30)
[2020-12-30] MEDS ORDERED: CEFTRIAXONE 1,000 MG in DEXTROSE 5% 50 ML IVPB ONE ×2 (17:30→19:30)
--- NOTE | 2020-12-30 18:02 | NUR ---
4 PIV ATTEMPTS BEFORE STARTING 24G IN RT THUMB. BLOOD CULTURES DRAWN BY LAB. ABX STARTED PER EMAR.
--- NOTE | 2020-12-30 18:41 | NUR ---
REPORT TO MADIHA GR.
[2020-12-30] MEDS ORDERED: BISACODYL 10 MG SUPP PR PRN (19:30)
[2020-12-30] MEDS ORDERED: MAGNESIUM SULFATE PMX 4GM/100M 100 ML IVPB ONE (19:30)
[2020-12-30] MEDS ORDERED: THIAMINE 200 MG in DEXTROSE 5% 50 ML IVPB ONE (19:30)
[2020-12-30] MEDS ORDERED: ALUMINUM/MAG/SIMETHICONE 30 ML UDC PO PRN (19:30)
[2020-12-30] MEDS ORDERED: FOLIC ACID 1 MG TABLET PO ONE (19:30)
[2020-12-30] MEDS: LORazepam 2 MG/ML, 1ML IV PRN ×2 (19:43→22:18)
[2020-12-30] MEDS ORDERED: NICOTINE 21 MG/24 HR PATCH.TD24 TD ONE (20:00)
[2020-12-30 20:08] VITALS: BP 145/91
[2020-12-30] MEDS: CHLORDIAZEPOXIDE 25 MG CAPSULE PO SCH (20:19)
[2020-12-30] MEDS: NYSTATIN TOPICAL POWDER 15GM TP SCH (21:00)
[2020-12-30] MEDS ORDERED: LISI20TA21 PO (21:27)
[2020-12-30] MEDS ORDERED: FOLI1TAB32 PO (21:27)
[2020-12-30] MEDS ORDERED: MAGNESIUM SULFATE PMX 2GM/50ML 50 ML IV ONE (23:00)
[2020-12-30 23:54] VITALS: BP 134/82
[2020-12-31] MEDS: LORazepam 2 MG/ML, 1ML IV PRN ×3 (00:23→20:01)
[2020-12-31] MEDS ORDERED: METOPROLOL TARTRATE 25 MG TAB ONE (02:26)
[2020-12-31] MEDS: CHLORDIAZEPOXIDE 25 MG CAPSULE PO SCH ×3 (02:29→14:55)
[2020-12-31 02:30] VITALS: BP 134/93
[2020-12-31] MEDS ORDERED: METOPROLOL TARTRATE 25 MG TAB PO ONE (02:30)
[2020-12-31 04:48] LABS: BASOPHILS % (AUTO) 1 % (0-1); EOSINOPHILS % (AUTO) 0 % (1-7); LYMPHOCYTES % (AUTO) 11 % (22-44); MEAN CORPUSCULAR HEMOGLOBIN 31.5 pg (27.5-34.5); MEAN CORPUSCULAR HGB CONC 33.4 g/dL (33.2-36.2); MEAN PLATELET VOLUME 7.6 fL (7.4-10.4); MONOCYTES % (AUTO) 5 % (2-9); NEUTROPHILS % (AUTO) 83 % (42-75); PLATELET COUNT 323 x10^3/uL (130-400); RED BLOOD COUNT 3.82 x10^6/uL (4.38-5.82); RED CELL DISTRIBUTION WIDTH 15.8 % (9.4-14.8)
[2020-12-31 04:49] LABS: MD NO
[2020-12-31 05:04] LABS: CHLORIDE 102 mmol/L (98-107)
[2020-12-31] MEDS: NYSTATIN TOPICAL POWDER 15GM TP SCH ×4 (05:05→20:01)
[2020-12-31 05:11] LABS: ALANINE AMINOTRANSFERASE 47 U/L (12-78); ALBUMIN 2.7 g/dL (3.4-5.0); ALKALINE PHOSPHATASE 417 U/L (45-117); ANION GAP 5 mmol/L (5-15); BILIRUBIN,TOTAL 0.5 mg/dL (0.2-1.0); CREATININE 0.55 mg/dL (0.7-1.3); TOTAL PROTEIN 7.4 g/dL (6.4-8.2)
[2020-12-31 08:00] VITALS: BP 160/89
[2020-12-31] MEDS ORDERED: DOXYCYCLINE 100 MG in DEXTROSE 5% 250 ML IV SCH (08:00)
[2020-12-31] MEDS ORDERED: DOXYCYCLINE 100MG TABLET PO SCH (09:00)
[2020-12-31] MEDS: MULTIVITAMINS/MINERALS TABLET PO SCH (11:13)
[2020-12-31] MEDS: METOPROLOL TARTRATE 25 MG TAB PO SCH ×2 (11:13→20:01)
[2020-12-31] MEDS: FOLIC ACID 1 MG TABLET PO SCH (11:13)
[2020-12-31 11:30] VITALS: BP 167/101
[2020-12-31 15:59] VITALS: BP 142/89
[2020-12-31] MEDS ORDERED: CEFTRIAXONE 2 GM in DEXTROSE 5% 50 ML IVPB SCH (17:30)
[2020-12-31] MEDS ORDERED: CHLORDIAZEPOXIDE 25 MG CAPSULE PO SCH (19:30)
[2020-12-31 19:54] VITALS: BP 150/93
[2020-12-31] MEDS: FUROSEMIDE 20 MG/2 ML IV SCH (20:01)
[2020-12-31] MEDS: DOXYCYCLINE 100 MG in DEXTROSE 5% 250 ML IV SCH (20:18)
[2020-12-31 23:38] VITALS: BP 148/99
[2021-01-01 00:44] VITALS: BP 150/90
[2021-01-01] MEDS: LORazepam 2 MG/ML, 1ML IV PRN ×6 (00:45→20:42)
[2021-01-01 01:48] LABS: CLOSTRIDIUM DIFFICILE ANTIGEN NEGATIVE; CLOSTRIDIUM DIFFICILE TOXIN NEGATIVE (Negative)
[2021-01-01 04:31] LABS: ALANINE AMINOTRANSFERASE 49 U/L (12-78); ALBUMIN 2.6 g/dL (3.4-5.0); ANION GAP 5 mmol/L (5-15); CALCIUM 8.4 mg/dL (8.5-10.1); CHLORIDE 102 mmol/L (98-107); CREATININE 0.78 mg/dL (0.7-1.3)
[2021-01-01 04:33] LABS: ALKALINE PHOSPHATASE 450 U/L (45-117); BILIRUBIN,TOTAL 0.9 mg/dL (0.2-1.0); TOTAL PROTEIN 7.1 g/dL (6.4-8.2)
[2021-01-01 04:39] LABS: BASOPHILS % (AUTO) 1 % (0-1); EOSINOPHILS % (AUTO) 1 % (1-7); LYMPHOCYTES % (AUTO) 12 % (22-44); MD NO; MEAN CORPUSCULAR HGB CONC 34.1 g/dL (33.2-36.2); MEAN PLATELET VOLUME 7.8 fL (7.4-10.4); MONOCYTES % (AUTO) 7 % (2-9); NEUTROPHILS % (AUTO) 78 % (42-75); PLATELET COUNT 280 x10^3/uL (130-400); RED BLOOD COUNT 3.72 x10^6/uL (4.38-5.82); RED CELL DISTRIBUTION WIDTH 15.4 % (9.4-14.8)
[2021-01-01] MEDS: NYSTATIN TOPICAL POWDER 15GM TP SCH ×4 (06:20→20:43)
[2021-01-01] MEDS: FUROSEMIDE 20 MG/2 ML IV SCH ×2 (06:20→17:34)
[2021-01-01 06:50] VITALS: BP 173/106
[2021-01-01] MEDS: DOXYCYCLINE 100 MG in DEXTROSE 5% 250 ML IV SCH ×2 (08:52→20:43)
[2021-01-01 09:00] VITALS: BP 163/91
[2021-01-01] MEDS ORDERED: MAGNESIUM SULFATE PMX 2GM/50ML 50 ML IV ONE (09:00)
[2021-01-01] MEDS: MULTIVITAMINS/MINERALS TABLET PO SCH (09:08)
[2021-01-01] MEDS: FOLIC ACID 1 MG TABLET PO SCH (09:08)
[2021-01-01] MEDS: METOPROLOL TARTRATE 25 MG TAB PO SCH ×2 (09:08→20:42)
[2021-01-01 17:21] VITALS: BP 169/99
[2021-01-01] MEDS: CEFTRIAXONE 1,000 MG in DEXTROSE 5% 50 ML IVPB SCH (17:34)
[2021-01-01 19:16] VITALS: BP 153/90
[2021-01-01] MEDS: APIXABAN 5 MG TABLET PO SCH (20:42)
[2021-01-01] MEDS: NICOTINE 21 MG/24 HR PATCH.TD24 TD SCH (20:43)
[2021-01-02 00:59] VITALS: BP_SYST 158; BP_SYST 159; BP_DIAS 100; BP_DIAS 103
[2021-01-02] MEDS: LORazepam 2 MG/ML, 1ML IV PRN ×8 (03:24→20:30)
[2021-01-02 04:50] LABS: BASOPHILS % (AUTO) 1 % (0-1); EOSINOPHILS % (AUTO) 3 % (1-7); LYMPHOCYTES % (AUTO) 13 % (22-44); MEAN CORPUSCULAR HEMOGLOBIN 31.8 pg (27.5-34.5); MEAN CORPUSCULAR HGB CONC 33.7 g/dL (33.2-36.2); MEAN PLATELET VOLUME 8.6 fL (7.4-10.4); MONOCYTES % (AUTO) 5 % (2-9); NEUTROPHILS % (AUTO) 78 % (42-75); PLATELET COUNT 276 x10^3/uL (130-400); RED BLOOD COUNT 3.79 x10^6/uL (4.38-5.82); RED CELL DISTRIBUTION WIDTH 15.6 % (9.4-14.8)
[2021-01-02 04:51] LABS: MD NO
[2021-01-02 04:59] LABS: ALBUMIN 2.7 g/dL (3.4-5.0); ANION GAP 7 mmol/L (5-15); CALCIUM 8.6 mg/dL (8.5-10.1); CHLORIDE 101 mmol/L (98-107)
[2021-01-02 05:03] LABS: ALANINE AMINOTRANSFERASE 43 U/L (12-78); ALKALINE PHOSPHATASE 422 U/L (45-117); BILIRUBIN,TOTAL 0.6 mg/dL (0.2-1.0); CREATININE 0.75 mg/dL (0.7-1.3); TOTAL PROTEIN 7.4 g/dL (6.4-8.2)
[2021-01-02] MEDS: NYSTATIN TOPICAL POWDER 15GM TP SCH ×4 (05:37→20:00)
[2021-01-02 08:11] VITALS: BP 164/100
[2021-01-02] MEDS: FUROSEMIDE 20 MG/2 ML IV SCH ×2 (08:23→17:51)
[2021-01-02] MEDS: DOXYCYCLINE 100 MG in DEXTROSE 5% 250 ML IV SCH ×2 (08:28→20:06)
[2021-01-02] MEDS: METOPROLOL TARTRATE 25 MG TAB PO SCH ×2 (08:35→20:06)
[2021-01-02] MEDS: MULTIVITAMINS/MINERALS TABLET PO SCH (08:35)
[2021-01-02] MEDS: APIXABAN 5 MG TABLET PO SCH ×2 (08:35→20:06)
[2021-01-02] MEDS: FOLIC ACID 1 MG TABLET PO SCH (08:40)
[2021-01-02 12:40] VITALS: BP 170/92
[2021-01-02 16:00] VITALS: BP 156/105
[2021-01-02 17:14] VITALS: BP 161/92
[2021-01-02] MEDS: CHLORDIAZEPOXIDE 25 MG CAPSULE PO SCH (17:51)
[2021-01-02] MEDS: CEFTRIAXONE 1,000 MG in DEXTROSE 5% 50 ML IVPB SCH (17:55)
[2021-01-02] MEDS ORDERED: LORazepam 2 MG/ML, 1ML IV PRN ×2 (18:00)
[2021-01-02 18:10] VITALS: BP 150/88
[2021-01-02] MEDS: NICOTINE 21 MG/24 HR PATCH.TD24 TD SCH (20:07)
[2021-01-02 20:29] LABS: MICROSCOPIC NOT IND
[2021-01-03] MEDS: CHLORDIAZEPOXIDE 25 MG CAPSULE PO SCH ×4 (00:08→16:58)
[2021-01-03 00:21] VITALS: BP 155/83
[2021-01-03] MEDS: LORazepam 2 MG/ML, 1ML IV PRN ×6 (01:45→21:48)
[2021-01-03 04:33] LABS: BASOPHILS % (AUTO) 1 % (0-1); EOSINOPHILS % (AUTO) 5 % (1-7); LYMPHOCYTES % (AUTO) 14 % (22-44); MEAN CORPUSCULAR HEMOGLOBIN 31.5 pg (27.5-34.5); MEAN CORPUSCULAR HGB CONC 33.8 g/dL (33.2-36.2); MEAN PLATELET VOLUME 7.9 fL (7.4-10.4); MONOCYTES % (AUTO) 8 % (2-9); NEUTROPHILS % (AUTO) 73 % (42-75); PLATELET COUNT 253 x10^3/uL (130-400); RED BLOOD COUNT 3.68 x10^6/uL (4.38-5.82); RED CELL DISTRIBUTION WIDTH 15.6 % (9.4-14.8)
[2021-01-03 04:34] LABS: MD NO
[2021-01-03 04:46] LABS: ANION GAP 5 mmol/L (5-15); CALCIUM 8.4 mg/dL (8.5-10.1); CHLORIDE 101 mmol/L (98-107)
[2021-01-03 04:48] LABS: CREATININE 0.79 mg/dL (0.7-1.3)
[2021-01-03] MEDS: NYSTATIN TOPICAL POWDER 15GM TP SCH ×4 (06:00→21:47)
[2021-01-03 06:47] VITALS: BP 163/93
[2021-01-03] MEDS: FOLIC ACID 1 MG TABLET PO SCH (09:10)
[2021-01-03] MEDS: MULTIVITAMINS/MINERALS TABLET PO SCH (09:10)
[2021-01-03] MEDS: APIXABAN 5 MG TABLET PO SCH ×2 (09:10→21:48)
[2021-01-03] MEDS: METOPROLOL TARTRATE 25 MG TAB PO SCH ×2 (09:10→21:49)
[2021-01-03] MEDS: FUROSEMIDE 20 MG/2 ML IV SCH ×2 (09:11→16:58)
[2021-01-03] MEDS: DOXYCYCLINE 100 MG in DEXTROSE 5% 250 ML IV SCH ×2 (09:20→21:48)
[2021-01-03 12:24] VITALS: BP 125/84
[2021-01-03] MEDS: CEFTRIAXONE 1,000 MG in DEXTROSE 5% 50 ML IVPB SCH (16:59)
[2021-01-03 18:38] VITALS: BP 128/87
[2021-01-03] MEDS ORDERED: MAGNESIUM SULFATE PMX 2GM/50ML 50 ML IV ONE (20:30)
[2021-01-03] MEDS ORDERED: POTASSIUM CHLORIDE 20 MEQ TAB.ER.PRT PO ONE (20:30)
[2021-01-03] MEDS: NICOTINE 21 MG/24 HR PATCH.TD24 TD SCH (21:47)
[2021-01-04 00:15] VITALS: BP 175/92
[2021-01-04] MEDS: CHLORDIAZEPOXIDE 25 MG CAPSULE PO SCH ×4 (00:21→17:56)
[2021-01-04] MEDS: LORazepam 2 MG/ML, 1ML IV PRN ×5 (03:39→19:54)
[2021-01-04 05:42] LABS: BASOPHILS % (AUTO) 1 % (0-1); EOSINOPHILS % (AUTO) 3 % (1-7); LYMPHOCYTES % (AUTO) 6 % (22-44); MEAN CORPUSCULAR HEMOGLOBIN 31.5 pg (27.5-34.5); MEAN CORPUSCULAR HGB CONC 33.6 g/dL (33.2-36.2); MEAN PLATELET VOLUME 8.7 fL (7.4-10.4); MONOCYTES % (AUTO) 8 % (2-9); NEUTROPHILS % (AUTO) 83 % (42-75); PLATELET COUNT 213 x10^3/uL (130-400); RED BLOOD COUNT 3.84 x10^6/uL (4.38-5.82); RED CELL DISTRIBUTION WIDTH 15.6 % (9.4-14.8)
[2021-01-04 05:43] LABS: MD NO
[2021-01-04 05:51] LABS: ALANINE AMINOTRANSFERASE 39 U/L (12-78); ALBUMIN 2.7 g/dL (3.4-5.0); ANION GAP 9 mmol/L (5-15); CALCIUM 8.3 mg/dL (8.5-10.1); CHLORIDE 100 mmol/L (98-107); CREATININE 0.75 mg/dL (0.7-1.3)
[2021-01-04 05:53] LABS: ALKALINE PHOSPHATASE 345 U/L (45-117); BILIRUBIN,TOTAL 0.5 mg/dL (0.2-1.0); TOTAL PROTEIN 7.6 g/dL (6.4-8.2)
[2021-01-04] MEDS: NYSTATIN TOPICAL POWDER 15GM TP SCH ×3 (06:09→16:38)
[2021-01-04 06:45] VITALS: BP 152/96
[2021-01-04] MEDS: FUROSEMIDE 20 MG/2 ML IV SCH ×2 (08:34→16:38)
[2021-01-04] MEDS: FOLIC ACID 1 MG TABLET PO SCH (08:35)
[2021-01-04] MEDS: METOPROLOL TARTRATE 25 MG TAB PO SCH ×2 (08:35→19:54)
[2021-01-04] MEDS: MULTIVITAMINS/MINERALS TABLET PO SCH (08:35)
[2021-01-04] MEDS: APIXABAN 5 MG TABLET PO SCH ×2 (08:35→19:53)
[2021-01-04] MEDS: DOXYCYCLINE 100 MG in DEXTROSE 5% 250 ML IV SCH (09:32)
[2021-01-04 11:51] VITALS: BP 159/99
[2021-01-04] MEDS: CEFTRIAXONE 1,000 MG in DEXTROSE 5% 50 ML IVPB SCH (17:56)
[2021-01-04 18:40] VITALS: BP 132/76
[2021-01-04] MEDS: NICOTINE 21 MG/24 HR PATCH.TD24 TD SCH (19:54)
[2021-01-05] MEDS: CHLORDIAZEPOXIDE 25 MG CAPSULE PO SCH ×3 (00:03→11:55)
[2021-01-05] MEDS: DOXYCYCLINE 100 MG in DEXTROSE 5% 250 ML IV SCH ×3 (00:03→21:44)
[2021-01-05] MEDS: LORazepam 2 MG/ML, 1ML IV PRN ×6 (00:03→21:44)
[2021-01-05] MEDS: NYSTATIN TOPICAL POWDER 15GM TP SCH ×5 (00:03→21:46)
[2021-01-05 01:47] VITALS: BP 156/107
[2021-01-05 05:22] LABS: BASOPHILS % (AUTO) 1 % (0-1); EOSINOPHILS % (AUTO) 2 % (1-7); LYMPHOCYTES % (AUTO) 8 % (22-44); MEAN CORPUSCULAR HEMOGLOBIN 31.2 pg (27.5-34.5); MEAN CORPUSCULAR HGB CONC 32.8 g/dL (33.2-36.2); MEAN PLATELET VOLUME 9.1 fL (7.4-10.4); MONOCYTES % (AUTO) 10 % (2-9); NEUTROPHILS % (AUTO) 79 % (42-75); PLATELET COUNT 150 x10^3/uL (130-400); RED BLOOD COUNT 3.82 x10^6/uL (4.38-5.82)
[2021-01-05 05:26] LABS: MD NO
[2021-01-05 05:31] LABS: ANION GAP 5 mmol/L (5-15); CALCIUM 8.2 mg/dL (8.5-10.1); CHLORIDE 98 mmol/L (98-107); CREATININE 0.83 mg/dL (0.7-1.3)
[2021-01-05 06:35] VITALS: BP 150/78
[2021-01-05] MEDS: METOPROLOL TARTRATE 25 MG TAB PO SCH ×2 (08:00→21:45)
[2021-01-05] MEDS: MULTIVITAMINS/MINERALS TABLET PO SCH (08:00)
[2021-01-05] MEDS: APIXABAN 5 MG TABLET PO SCH ×2 (08:00→21:45)
[2021-01-05] MEDS: FOLIC ACID 1 MG TABLET PO SCH (08:00)
[2021-01-05] MEDS ORDERED: MAGNESIUM SULFATE PMX 2GM/50ML 50 ML IV ONE (08:00)
[2021-01-05] MEDS: FUROSEMIDE 20 MG/2 ML IV SCH (08:00)
[2021-01-05] MEDS: POTASSIUM CHLORIDE 20 MEQ TAB.ER.PRT PO SCH ×2 (08:54→21:45)
[2021-01-05 12:47] VITALS: BP 127/86
[2021-01-05] MEDS ORDERED: FUROSEMIDE 20 MG/2 ML IV SCH (17:00)
[2021-01-05] MEDS: CEFTRIAXONE 1,000 MG in DEXTROSE 5% 50 ML IVPB SCH (17:35)
[2021-01-05 20:50] VITALS: BP 135/87
[2021-01-05] MEDS ORDERED: DOXYCYCLINE 100MG TABLET PO SCH (21:00)
[2021-01-05] MEDS: NICOTINE 21 MG/24 HR PATCH.TD24 TD SCH (21:44)
[2021-01-06 01:53] VITALS: BP 130/75
[2021-01-06] MEDS: LORazepam 2 MG/ML, 1ML IV PRN ×5 (02:08→21:41)
[2021-01-06 05:24] LABS: ANION GAP 4 mmol/L (5-15); CALCIUM 8.5 mg/dL (8.5-10.1); CHLORIDE 100 mmol/L (98-107)
[2021-01-06 05:29] LABS: BASOPHILS % (AUTO) 1 % (0-1); EOSINOPHILS % (AUTO) 1 % (1-7); LYMPHOCYTES % (AUTO) 9 % (22-44); MEAN CORPUSCULAR HEMOGLOBIN 31.4 pg (27.5-34.5); MEAN CORPUSCULAR HGB CONC 33.3 g/dL (33.2-36.2); MEAN PLATELET VOLUME 9.2 fL (7.4-10.4); MONOCYTES % (AUTO) 9 % (2-9); NEUTROPHILS % (AUTO) 80 % (42-75); PLATELET COUNT 121 x10^3/uL (130-400); RED BLOOD COUNT 3.48 x10^6/uL (4.38-5.82); RED CELL DISTRIBUTION WIDTH 15.8 % (9.4-14.8)
[2021-01-06 05:37] LABS: MD NO
[2021-01-06] MEDS: NYSTATIN TOPICAL POWDER 15GM TP SCH ×4 (05:39→21:42)
[2021-01-06 07:00] VITALS: BP 126/82
[2021-01-06 08:20] LABS: ALBUMIN 2.5 g/dL (3.4-5.0)
[2021-01-06 08:22] LABS: BILIRUBIN,TOTAL 0.6 mg/dL (0.2-1.0); TOTAL PROTEIN 7.1 g/dL (6.4-8.2)
[2021-01-06 08:24] LABS: BILIRUBIN, DIRECT 0.2 mg/dL (0.1-0.2); BILIRUBIN,INDIRECT 0.4 mg/dL (0.0-2.0)
[2021-01-06] MEDS: POTASSIUM CHLORIDE 20 MEQ TAB.ER.PRT PO SCH ×2 (09:00→09:47)
[2021-01-06] MEDS: PIPERACILLIN/TAZO 3.375 GM in DEXTROSE 5% 50 ML IV SCH ×3 (09:47→21:51)
[2021-01-06] MEDS: METOPROLOL TARTRATE 25 MG TAB PO SCH ×2 (09:47→21:41)
[2021-01-06] MEDS: MULTIVITAMINS/MINERALS TABLET PO SCH (09:47)
[2021-01-06] MEDS: FOLIC ACID 1 MG TABLET PO SCH (09:47)
[2021-01-06] MEDS: APIXABAN 5 MG TABLET PO SCH ×2 (09:48→21:40)
[2021-01-06] MEDS: LINEZOLID PMX 600MG/300ML 300 ML IV SCH (11:45)
[2021-01-06 12:23] VITALS: BP 113/74
[2021-01-06 18:54] VITALS: BP 99/64
[2021-01-06 19:13] LABS: MICROSCOPIC INDICATED
[2021-01-06] MEDS: NICOTINE 21 MG/24 HR PATCH.TD24 TD SCH (21:50)
[2021-01-07] MEDS: LINEZOLID PMX 600MG/300ML 300 ML IV SCH ×2 (00:39→10:50)
[2021-01-07] MEDS: LORazepam 2 MG/ML, 1ML IV PRN ×4 (00:46→15:24)
[2021-01-07 01:02] VITALS: BP 126/84
[2021-01-07] MEDS: PIPERACILLIN/TAZO 3.375 GM in DEXTROSE 5% 50 ML IV SCH ×4 (03:40→23:51)
[2021-01-07 04:53] LABS: BASOPHILS % (AUTO) 1 % (0-1); EOSINOPHILS % (AUTO) 3 % (1-7); LYMPHOCYTES % (AUTO) 13 % (22-44); MEAN CORPUSCULAR HEMOGLOBIN 31.5 pg (27.5-34.5); MEAN CORPUSCULAR HGB CONC 33.4 g/dL (33.2-36.2); MEAN PLATELET VOLUME 9.6 fL (7.4-10.4); MONOCYTES % (AUTO) 11 % (2-9); NEUTROPHILS % (AUTO) 73 % (42-75); PLATELET COUNT 122 x10^3/uL (130-400); RED BLOOD COUNT 3.51 x10^6/uL (4.38-5.82); RED CELL DISTRIBUTION WIDTH 16.1 % (9.4-14.8)
[2021-01-07 04:54] LABS: MD NO
[2021-01-07 04:57] LABS: CHLORIDE 103 mmol/L (98-107)
[2021-01-07 05:01] LABS: ANION GAP 3 mmol/L (5-15); CALCIUM 8.4 mg/dL (8.5-10.1); CREATININE 0.78 mg/dL (0.7-1.3)
[2021-01-07] MEDS: NYSTATIN TOPICAL POWDER 15GM TP SCH ×4 (06:00→22:37)
[2021-01-07 06:32] VITALS: BP 102/67
[2021-01-07] MEDS ORDERED: FUROSEMIDE 20 MG TABLET ONE (08:26)
[2021-01-07] MEDS: FUROSEMIDE 20 MG TABLET PO SCH (08:29)
[2021-01-07] MEDS: MULTIVITAMINS/MINERALS TABLET PO SCH (08:30)
[2021-01-07] MEDS: APIXABAN 5 MG TABLET PO SCH ×2 (08:30→22:36)
[2021-01-07] MEDS: METOPROLOL TARTRATE 25 MG TAB PO SCH ×2 (08:30→22:37)
[2021-01-07] MEDS: FOLIC ACID 1 MG TABLET PO SCH (08:30)
[2021-01-07] MEDS: POTASSIUM CHLORIDE 20 MEQ TAB.ER.PRT PO SCH (08:30)
[2021-01-07 12:07] VITALS: BP 115/67
[2021-01-07 20:32] VITALS: BP 116/71
[2021-01-07] MEDS: LORazepam 1MG TABLET PO PRN (22:36)
[2021-01-07] MEDS: NICOTINE 21 MG/24 HR PATCH.TD24 TD SCH (22:37)
[2021-01-08] MEDS: LORazepam 2 MG/ML, 1ML IV PRN (00:39)
[2021-01-08] MEDS: LINEZOLID PMX 600MG/300ML 300 ML IV SCH ×3 (00:39→23:28)
[2021-01-08 04:35] LABS: BASOPHILS % (AUTO) 2 % (0-1); EOSINOPHILS % (AUTO) 3 % (1-7); LYMPHOCYTES % (AUTO) 13 % (22-44); MEAN CORPUSCULAR HGB CONC 33.1 g/dL (33.2-36.2); MONOCYTES % (AUTO) 9 % (2-9); NEUTROPHILS % (AUTO) 74 % (42-75); PLATELET COUNT 157 x10^3/uL (130-400); RED BLOOD COUNT 3.49 x10^6/uL (4.38-5.82); RED CELL DISTRIBUTION WIDTH 15.8 % (9.4-14.8)
[2021-01-08 04:37] LABS: MD NO
[2021-01-08 04:44] LABS: ANION GAP 4 mmol/L (5-15); CALCIUM 8.9 mg/dL (8.5-10.1); CHLORIDE 101 mmol/L (98-107); CREATININE 0.87 mg/dL (0.7-1.3)
[2021-01-08] MEDS: PIPERACILLIN/TAZO 3.375 GM in DEXTROSE 5% 50 ML IV SCH ×3 (05:53→22:45)
[2021-01-08] MEDS: NYSTATIN TOPICAL POWDER 15GM TP SCH ×4 (05:53→22:06)
[2021-01-08 06:38] VITALS: BP 118/81
[2021-01-08] MEDS: FOLIC ACID 1 MG TABLET PO SCH (08:34)
[2021-01-08] MEDS: METOPROLOL TARTRATE 25 MG TAB PO SCH ×2 (08:35→22:05)
[2021-01-08] MEDS: APIXABAN 5 MG TABLET PO SCH ×2 (08:35→22:05)
[2021-01-08] MEDS: POTASSIUM CHLORIDE 20 MEQ TAB.ER.PRT PO SCH (08:35)
[2021-01-08] MEDS: FUROSEMIDE 20 MG TABLET PO SCH (08:35)
[2021-01-08] MEDS: MULTIVITAMINS/MINERALS TABLET PO SCH (08:35)
[2021-01-08 12:14] VITALS: BP 111/76
[2021-01-08 18:46] VITALS: BP 122/86
[2021-01-08] MEDS: NICOTINE 21 MG/24 HR PATCH.TD24 TD SCH (22:05)
[2021-01-09 00:35] VITALS: BP 114/75
[2021-01-09 05:24] LABS: BASOPHILS % (AUTO) 1 % (0-1); EOSINOPHILS % (AUTO) 3 % (1-7); LYMPHOCYTES % (AUTO) 16 % (22-44); MEAN CORPUSCULAR HEMOGLOBIN 31.5 pg (27.5-34.5); MEAN CORPUSCULAR HGB CONC 33.5 g/dL (33.2-36.2); MEAN PLATELET VOLUME 9.5 fL (7.4-10.4); MONOCYTES % (AUTO) 8 % (2-9); NEUTROPHILS % (AUTO) 72 % (42-75); PLATELET COUNT 216 x10^3/uL (130-400); RED BLOOD COUNT 3.35 x10^6/uL (4.38-5.82); RED CELL DISTRIBUTION WIDTH 15.8 % (9.4-14.8)
[2021-01-09 05:27] LABS: MD NO
[2021-01-09 05:35] LABS: ANION GAP 4 mmol/L (5-15); CALCIUM 8.8 mg/dL (8.5-10.1); CHLORIDE 103 mmol/L (98-107); CREATININE 0.78 mg/dL (0.7-1.3)
[2021-01-09] MEDS: NYSTATIN TOPICAL POWDER 15GM TP SCH ×4 (06:00→20:43)
[2021-01-09] MEDS: PIPERACILLIN/TAZO 3.375 GM in DEXTROSE 5% 50 ML IV SCH ×3 (06:38→20:43)
[2021-01-09 08:15] VITALS: BP 116/75
[2021-01-09] MEDS: APIXABAN 5 MG TABLET PO SCH ×2 (10:20→20:39)
[2021-01-09] MEDS: FOLIC ACID 1 MG TABLET PO SCH (10:20)
[2021-01-09] MEDS: FUROSEMIDE 20 MG TABLET PO SCH (10:20)
[2021-01-09] MEDS: POTASSIUM CHLORIDE 20 MEQ TAB.ER.PRT PO SCH (10:20)
[2021-01-09] MEDS: MULTIVITAMINS/MINERALS TABLET PO SCH (10:20)
[2021-01-09] MEDS: METOPROLOL TARTRATE 25 MG TAB PO SCH ×2 (10:21→20:39)
[2021-01-09] MEDS: LINEZOLID PMX 600MG/300ML 300 ML IV SCH ×2 (11:26→22:48)
[2021-01-09 13:50] VITALS: BP 118/74
[2021-01-09 19:35] VITALS: BP 127/79
[2021-01-09] MEDS: NICOTINE 21 MG/24 HR PATCH.TD24 TD SCH (20:42)
[2021-01-09] MEDS: LORazepam 1MG TABLET PO PRN (23:22)
[2021-01-10 00:52] VITALS: BP 147/92
[2021-01-10] MEDS: PIPERACILLIN/TAZO 3.375 GM in DEXTROSE 5% 50 ML IV SCH (03:02)
[2021-01-10 06:35] VITALS: BP 150/87
[2021-01-10] MEDS: POTASSIUM CHLORIDE 20 MEQ TAB.ER.PRT PO SCH (08:31)
[2021-01-10] MEDS: MULTIVITAMINS/MINERALS TABLET PO SCH (08:31)
[2021-01-10] MEDS: APIXABAN 5 MG TABLET PO SCH ×2 (08:31→21:58)
[2021-01-10] MEDS: FUROSEMIDE 20 MG TABLET PO SCH (08:31)
[2021-01-10] MEDS: NYSTATIN TOPICAL POWDER 15GM TP SCH ×4 (08:31→21:59)
[2021-01-10] MEDS: FOLIC ACID 1 MG TABLET PO SCH (08:31)
[2021-01-10] MEDS: METOPROLOL TARTRATE 100 MG TAB PO SCH ×2 (08:31→21:58)
[2021-01-10] MEDS: AMOXICILLIN/CLAV 875-125MG TABLET PO SCH ×2 (08:31→21:59)
[2021-01-10] MEDS: SULFAMETH./TRIMETHOPRIM DS 800MG/160MG TABLET PO SCH ×2 (08:31→21:58)
[2021-01-10] MEDS: LORazepam 1MG TABLET PO PRN ×2 (11:38→21:58)
[2021-01-10 12:08] VITALS: BP 131/94
[2021-01-10 19:53] VITALS: BP 104/70
[2021-01-10] MEDS: NICOTINE 21 MG/24 HR PATCH.TD24 TD SCH (21:59)
[2021-01-10 23:57] VITALS: BP 119/83
[2021-01-11 05:13] LABS: BASOPHILS % (AUTO) 1 % (0-1); EOSINOPHILS % (AUTO) 3 % (1-7); LYMPHOCYTES % (AUTO) 22 % (22-44); MEAN CORPUSCULAR HEMOGLOBIN 31.8 pg (27.5-34.5); MEAN CORPUSCULAR HGB CONC 33.6 g/dL (33.2-36.2); MEAN PLATELET VOLUME 9.4 fL (7.4-10.4); MONOCYTES % (AUTO) 10 % (2-9); NEUTROPHILS % (AUTO) 64 % (42-75); PLATELET COUNT 279 x10^3/uL (130-400); RED BLOOD COUNT 3.38 x10^6/uL (4.38-5.82)
[2021-01-11 05:23] LABS: MD NO
[2021-01-11 06:19] LABS: ALANINE AMINOTRANSFERASE 41 U/L (12-78); ALBUMIN 2.8 g/dL (3.4-5.0); ANION GAP 4 mmol/L (5-15); CALCIUM 8.9 mg/dL (8.5-10.1); CHLORIDE 107 mmol/L (98-107); CREATININE 0.95 mg/dL (0.7-1.3)
[2021-01-11 06:20] LABS: ALKALINE PHOSPHATASE 260 U/L (45-117); BILIRUBIN,TOTAL 0.4 mg/dL (0.2-1.0)
[2021-01-11 06:30] VITALS: BP 114/80
[2021-01-11] MEDS: NYSTATIN TOPICAL POWDER 15GM TP SCH ×4 (06:30→20:37)
[2021-01-11] MEDS: SULFAMETH./TRIMETHOPRIM DS 800MG/160MG TABLET PO SCH ×2 (09:20→20:35)
[2021-01-11] MEDS: POTASSIUM CHLORIDE 20 MEQ TAB.ER.PRT PO SCH (09:20)
[2021-01-11] MEDS: FUROSEMIDE 20 MG TABLET PO SCH (09:20)
[2021-01-11] MEDS: AMOXICILLIN/CLAV 875-125MG TABLET PO SCH ×2 (09:20→20:35)
[2021-01-11] MEDS: FOLIC ACID 1 MG TABLET PO SCH (09:20)
[2021-01-11] MEDS: APIXABAN 5 MG TABLET PO SCH ×2 (09:20→20:36)
[2021-01-11] MEDS: METOPROLOL TARTRATE 100 MG TAB PO SCH ×2 (09:20→20:35)
[2021-01-11] MEDS: MULTIVITAMINS/MINERALS TABLET PO SCH (09:20)
[2021-01-11] MEDS: LORazepam 1MG TABLET PO PRN ×2 (09:24→20:36)
[2021-01-11 12:59] VITALS: BP 117/77
[2021-01-11 20:00] VITALS: BP 119/76
[2021-01-11] MEDS: NICOTINE 21 MG/24 HR PATCH.TD24 TD SCH (20:36)
[2021-01-12 01:02] VITALS: BP 101/56
[2021-01-12] MEDS: NYSTATIN TOPICAL POWDER 15GM TP SCH (05:25)
[2021-01-12 07:18] VITALS: BP 117/65
[2021-01-12] MEDS: AMOXICILLIN/CLAV 875-125MG TABLET PO SCH (08:34)
[2021-01-12] MEDS: METOPROLOL TARTRATE 100 MG TAB PO SCH (08:34)
[2021-01-12] MEDS: FUROSEMIDE 20 MG TABLET PO SCH (08:35)
[2021-01-12] MEDS: MULTIVITAMINS/MINERALS TABLET PO SCH (08:35)
[2021-01-12] MEDS: FOLIC ACID 1 MG TABLET PO SCH (08:35)
[2021-01-12] MEDS: SULFAMETH./TRIMETHOPRIM DS 800MG/160MG TABLET PO SCH (08:35)
[2021-01-12] MEDS: APIXABAN 5 MG TABLET PO SCH (08:35)
[2021-01-12] MEDS: POTASSIUM CHLORIDE 20 MEQ TAB.ER.PRT PO SCH (08:35)
[2021-01-12] MEDS ORDERED: TIOTROPIUM BROMIDE 18 MCG/INH INH SCH (09:00)
[2021-01-12] MEDS ORDERED: AMOX1TAB12 PO (13:07)
[2021-01-12] MEDS ORDERED: DOXY100T PO ×2 (13:07)
== END 2021-01-12 11:01 | disposition left against medical advice (07) | DRG 720 ==
LOC: ED 16:05 → EDIP 17:23 → 5SO 19:10
PROVIDERS: ADMIT Internal Medicine; ATTEND Hospitalist
DX: A41.9 Sepsis, unspecified organism (principal); J96.01 Acute respiratory failure with hypoxia; G93.41 Metabolic encephalopathy; I50.33 Acute on chronic diastolic (congestive) heart failure; F10.221 Alcohol dependence with intoxication delirium; F10.231 Alcohol dependence with withdrawal delirium; D68.69 Other thrombophilia; I11.0 Hypertensive heart disease with heart failure; J15.9 Unspecified bacterial pneumonia; E83.42 Hypomagnesemia; E78.5 Hyperlipidemia, unspecified; E87.6 Hypokalemia; I27.20 Pulmonary hypertension, unspecified; I48.20 Chronic atrial fibrillation, unspecified; J44.0 Chronic obstructive pulmonary disease with (acute) lower respiratory infection; L30.9 Dermatitis, unspecified; R32 Unspecified urinary incontinence; Z59.0 Homelessness; Z72.0 Tobacco use; Z91.19 Patient's noncompliance with other medical treatment and regimen; Z20.822 Contact with and (suspected) exposure to COVID-19; Z53.29 Procedure and treatment not carried out because of patient's decision for other reasons
CPT/HCPCS: 36415; 71045; 71250; 76770; 80048; 80053; 80076; 80320; 81001; 81003; 83605; 83735; 84100; 84145; 85025; 87040; 87086; 87324; 93005; 93308; 93321; 93325; 96374; G0378; J0696; J2020; J2543; J3411; J7060; U0005; G0480; J1940; J2060; J3475; U0003

== ENCOUNTER 2021-02-07 11:19 | Inpatient (IN) | payer MEDICAID ==
[~2021-02-07] VITALS: Ht 193 cm; Wt 93.9 kg
[~2021-02-07 11:19] MED LIST changes: +DOXY100T PO; +LISI20TA21 PO
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
[2021-02-07] MEDS ORDERED: DILTIAZEM 5 MG/ML, 5ML IV ONE (11:30)
[2021-02-07] MEDS ORDERED: SODIUM CHLORIDE FLUSH 10ML SYR IVF ONE (11:30)
[2021-02-07] MEDS ORDERED: DILTIAZEM 125 MG in SODIUM CHLORIDE 0.9% 100 ML IV SCH (11:30)
[2021-02-07] MEDS ORDERED: SODIUM CHLORIDE 0.9% 1,000ML IVBOLUS ONE (11:30)
[2021-02-07] MEDS ORDERED: LORazepam 2 MG/ML, 1ML IVPush PRN ×2 (11:30→14:30)
[2021-02-07] MEDS ORDERED: DILTIAZEM 5 MG/ML, 5ML ONE (11:35)
[2021-02-07] MEDS ORDERED: LORazepam 2 MG/ML, 1ML ONE ×2 (11:35→16:29)
[2021-02-07] MEDS ORDERED: THIAMINE 100 MG in SODIUM CHLORIDE 0.9% 50 ML IVPB ONE (12:00)
[2021-02-07 12:13] LABS: BASOPHILS % (AUTO) 1 % (0-1); EOSINOPHILS % (AUTO) 4 % (1-7); LYMPHOCYTES % (AUTO) 29 % (22-44); MEAN CORPUSCULAR HEMOGLOBIN 32.5 pg (27.5-34.5); MEAN CORPUSCULAR HGB CONC 33.3 g/dL (33.2-36.2); MEAN PLATELET VOLUME 8.4 fL (7.4-10.4); MONOCYTES % (AUTO) 12 % (2-9); NEUTROPHILS % (AUTO) 55 % (42-75); PLATELET COUNT 114 x10^3/uL (130-400); RED BLOOD COUNT 4.39 x10^6/uL (4.38-5.82)
[2021-02-07 12:25] LABS: ALANINE AMINOTRANSFERASE 128 U/L (12-78); ALBUMIN 3.1 g/dL (3.4-5.0); ANION GAP 22 mmol/L (5-15); CALCIUM 8.3 mg/dL (8.5-10.1); CHLORIDE 97 mmol/L (98-107); CREATININE 0.81 mg/dL (0.7-1.3)
[2021-02-07 12:27] LABS: ALKALINE PHOSPHATASE 266 U/L (45-117); BILIRUBIN,TOTAL 0.6 mg/dL (0.2-1.0); TOTAL PROTEIN 7.6 g/dL (6.4-8.2)
--- NOTE | 2021-02-07 12:50 | NUR ---
PT SLEEPING ON GURNEY, RESPIRATIONS EVEN AND UNLABORED. NADN/VSS. CALL LIGHT WITHIN REACH. SZ PRECAUTIONS IN PLACE
[2021-02-07] MEDS ORDERED: SODIUM CHLORIDE FLUSH 10ML SYR IVF PRN (13:30)
--- NOTE | 2021-02-07 13:30 | NUR ---
TASK RN: PT RESTING ON GURNEY. NADN. SIMS.
--- NOTE | 2021-02-07 13:59 | NUR ---
PT BACK FROM CT
[2021-02-07] MEDS ORDERED: FOLIC ACID 5 MG/ML IM ONE (14:00)
[2021-02-07] MEDS ORDERED: DIVALPROEX 125 MG CAP.SPRINK PO SCH (14:00)
[2021-02-07] MEDS ORDERED: ACETAMINOPHEN 325 MG TABLET PO PRN (14:00)
[2021-02-07] MEDS ORDERED: THIAMINE 200 MG in DEXTROSE 5% 50 ML IVPB ONE (14:00)
[2021-02-07] MEDS ORDERED: POTASSIUM CHLORIDE 20 MEQ TAB.ER.PRT PO ONE (14:00)
[2021-02-07] MEDS ORDERED: LORazepam 2 MG/ML, 1ML IV PRN ×2 (14:00)
[2021-02-07] MEDS ORDERED: POTASSIUM CHLORIDE 20 MEQ TAB.ER.PRT ONE (14:27)
--- NOTE | 2021-02-07 14:40 | NUR ---
PT SLEEPING ON GURNEY, RESPIRATIONS EVEN AND UNLABORED. VSS/NADN. CALL LIGHT WITHIN REACH.
[2021-02-07] MEDS: DILTIAZEM 30 MG TABLET PO SCH (15:00)
--- NOTE | 2021-02-07 15:30 | NUR ---
Pt to be admitted to [facility], room 402-1. Report called to KIERSTEN.
[2021-02-07] MEDS ORDERED: GABAPENTIN 300 MG CAPSULE PO SCH (16:00)
[2021-02-07] MEDS: LORazepam 2 MG/ML, 1ML IV PRN ×2 (16:31→17:56)
--- NOTE | 2021-02-07 16:32 | NUR ---
OYSTER SORTER: CALLED TO ROOM, PT BEGAN SEIZING WHILE TECH BEGINNING TRANSPORT. LASTING "A COUPLE OF MINUTES" UPON RN ARRIVAL TO ROOM, PT POSTICTAL WITH SNORING RESP AT TIMES. PRIMARY RN NOTIFIED.
[2021-02-07 16:56] VITALS: BP 132/79
[2021-02-07] MEDS: LEVETIRACETAM 500 MG in SODIUM CHLORIDE 0.9% 100 ML IV SCH (18:44)
[2021-02-07] MEDS ORDERED: DIAZEPAM 10 MG TABLET PO ONE (19:30)
[2021-02-07] MEDS ORDERED: METOPROLOL TARTRATE 50 MG TAB ONE (19:35)
[2021-02-07] MEDS: APIXABAN 5 MG TABLET PO SCH (19:37)
[2021-02-07] MEDS: METOPROLOL TARTRATE 25 MG TAB PO SCH (19:42)
[2021-02-07 20:17] VITALS: BP 129/100
[2021-02-07] MEDS ORDERED: DIAZEPAM 5 MG TABLET PO SCH (20:30)
[2021-02-07 22:13] VITALS: BP 137/81
[2021-02-08 00:15] VITALS: BP 148/89
[2021-02-08] MEDS: DIAZEPAM 10 MG TABLET PO SCH ×3 (00:19→11:32)
[2021-02-08] MEDS: DILTIAZEM 30 MG TABLET PO SCH ×4 (00:19→23:07)
[2021-02-08 05:03] LABS: BASOPHILS % (AUTO) 1 % (0-1); EOSINOPHILS % (AUTO) 0 % (1-7); LYMPHOCYTES % (AUTO) 7 % (22-44); MEAN CORPUSCULAR HEMOGLOBIN 32.6 pg (27.5-34.5); MEAN CORPUSCULAR HGB CONC 34.1 g/dL (33.2-36.2); MEAN PLATELET VOLUME 8.9 fL (7.4-10.4); MONOCYTES % (AUTO) 8 % (2-9); NEUTROPHILS % (AUTO) 84 % (42-75); PLATELET COUNT 101 x10^3/uL (130-400); RED BLOOD COUNT 4.28 x10^6/uL (4.38-5.82); RED CELL DISTRIBUTION WIDTH 16.9 % (9.4-14.8)
[2021-02-08 05:17] LABS: ALANINE AMINOTRANSFERASE 133 U/L (12-78); ALBUMIN 3.2 g/dL (3.4-5.0); ANION GAP 8 mmol/L (5-15); CALCIUM 8.8 mg/dL (8.5-10.1); CHLORIDE 100 mmol/L (98-107); CREATININE 0.81 mg/dL (0.7-1.3)
[2021-02-08 05:19] LABS: ALKALINE PHOSPHATASE 270 U/L (45-117); BILIRUBIN,TOTAL 1.2 mg/dL (0.2-1.0); TOTAL PROTEIN 7.7 g/dL (6.4-8.2)
[2021-02-08] MEDS: LEVETIRACETAM 500 MG in SODIUM CHLORIDE 0.9% 100 ML IV SCH ×2 (06:26→18:29)
[2021-02-08 07:17] VITALS: BP 148/104
[2021-02-08] MEDS: FOLIC ACID 1 MG TABLET PO SCH (09:20)
[2021-02-08] MEDS: MULTIVITAMINS/MINERALS TABLET PO SCH (09:20)
[2021-02-08] MEDS: APIXABAN 5 MG TABLET PO SCH ×2 (09:20→21:20)
[2021-02-08] MEDS: LISINOPRIL 20 MG TABLET PO SCH (09:20)
[2021-02-08] MEDS: METOPROLOL TARTRATE 25 MG TAB PO SCH ×2 (09:21→21:19)
[2021-02-08] MEDS: ATORVASTATIN 40 MG TABLET PO SCH (09:21)
[2021-02-08 12:08] VITALS: BP 132/89
[2021-02-08] MEDS: LORazepam 2 MG/ML, 1ML IV PRN ×2 (12:38→17:25)
[2021-02-08] MEDS: DIAZEPAM 5 MG TABLET PO SCH (18:28)
[2021-02-08 18:47] VITALS: BP 108/69
[2021-02-08 21:16] VITALS: BP 146/78
[2021-02-08 23:07] VITALS: BP 136/84
[2021-02-09 00:21] VITALS: BP 155/98
[2021-02-09] MEDS: DIAZEPAM 5 MG TABLET PO SCH ×5 (01:08→23:32)
[2021-02-09 06:18] LABS: BASOPHILS % (AUTO) 0 % (0-1); EOSINOPHILS % (AUTO) 1 % (1-7); LYMPHOCYTES % (AUTO) 10 % (22-44); MEAN CORPUSCULAR HEMOGLOBIN 32.4 pg (27.5-34.5); MEAN CORPUSCULAR HGB CONC 33.7 g/dL (33.2-36.2); MEAN PLATELET VOLUME 9.1 fL (7.4-10.4); MONOCYTES % (AUTO) 6 % (2-9); NEUTROPHILS % (AUTO) 82 % (42-75); PLATELET COUNT 88 x10^3/uL (130-400); RED BLOOD COUNT 3.91 x10^6/uL (4.38-5.82)
[2021-02-09 06:20] LABS: ANION GAP 7 mmol/L (5-15); CALCIUM 8.8 mg/dL (8.5-10.1); CHLORIDE 101 mmol/L (98-107); CREATININE 0.78 mg/dL (0.7-1.3)
[2021-02-09] MEDS: LEVETIRACETAM 500 MG in SODIUM CHLORIDE 0.9% 100 ML IV SCH ×2 (06:43→17:26)
[2021-02-09 07:28] VITALS: BP 173/94
[2021-02-09] MEDS: DILTIAZEM 30 MG TABLET PO SCH ×3 (07:32→23:32)
[2021-02-09] MEDS: LORazepam 2 MG/ML, 1ML IV PRN ×4 (07:33→22:06)
[2021-02-09] MEDS: METOPROLOL TARTRATE 25 MG TAB PO SCH ×2 (10:20→20:12)
[2021-02-09] MEDS: LISINOPRIL 20 MG TABLET PO SCH (10:21)
[2021-02-09] MEDS: MULTIVITAMINS/MINERALS TABLET PO SCH (10:21)
[2021-02-09] MEDS: APIXABAN 5 MG TABLET PO SCH ×2 (10:21→20:12)
[2021-02-09] MEDS: ATORVASTATIN 40 MG TABLET PO SCH (10:21)
[2021-02-09] MEDS: FOLIC ACID 1 MG TABLET PO SCH (10:21)
[2021-02-09 13:27] VITALS: BP 133/94
[2021-02-09] MEDS ORDERED: ALBUTEROL-IPRATROPIUM MDI INH INH SCH (16:00)
[2021-02-09 18:46] VITALS: BP 145/80
[2021-02-09 20:08] VITALS: BP 155/88
[2021-02-09] MEDS: GUAIFENESIN ER 600 MG TABLET PO SCH (20:12)
[2021-02-09] MEDS: ALBUTEROL/IPRATROPIUM 2.5MG/0.5MG, 3 ML NPPB SCH (22:30)
[2021-02-09 23:30] VITALS: BP 156/94
[2021-02-10 00:09] VITALS: BP 150/89
[2021-02-10] MEDS: LORazepam 2 MG/ML, 1ML IV PRN ×4 (01:02→22:07)
[2021-02-10] MEDS: DIAZEPAM 5 MG TABLET PO SCH ×2 (05:38→12:46)
[2021-02-10] MEDS: LEVETIRACETAM 500 MG in SODIUM CHLORIDE 0.9% 100 ML IV SCH ×2 (05:38→18:10)
[2021-02-10] MEDS: ALBUTEROL/IPRATROPIUM 2.5MG/0.5MG, 3 ML NPPB SCH ×3 (06:58→20:10)
[2021-02-10 08:17] VITALS: BP 176/124
[2021-02-10] MEDS: MULTIVITAMINS/MINERALS TABLET PO SCH (08:20)
[2021-02-10] MEDS: FOLIC ACID 1 MG TABLET PO SCH (08:20)
[2021-02-10] MEDS: DILTIAZEM 30 MG TABLET PO SCH ×2 (08:20→16:21)
[2021-02-10] MEDS: METOPROLOL TARTRATE 25 MG TAB PO SCH ×2 (08:21→22:06)
[2021-02-10] MEDS: LISINOPRIL 20 MG TABLET PO SCH (08:21)
[2021-02-10] MEDS: ATORVASTATIN 40 MG TABLET PO SCH (08:21)
[2021-02-10] MEDS: APIXABAN 5 MG TABLET PO SCH ×2 (08:21→22:06)
[2021-02-10] MEDS: GUAIFENESIN ER 600 MG TABLET PO SCH ×2 (08:21→22:06)
[2021-02-10 13:38] VITALS: BP 148/82
[2021-02-10 21:42] VITALS: BP 139/79
[2021-02-11 00:25] VITALS: BP 148/85
[2021-02-11] MEDS: DILTIAZEM 30 MG TABLET PO SCH ×3 (00:31→16:47)
[2021-02-11] MEDS: ALBUTEROL/IPRATROPIUM 2.5MG/0.5MG, 3 ML NPPB SCH ×4 (02:20→19:59)
[2021-02-11] MEDS: LEVETIRACETAM 500 MG in SODIUM CHLORIDE 0.9% 100 ML IV SCH (06:33)
[2021-02-11 06:47] VITALS: BP 190/102
[2021-02-11] MEDS: MULTIVITAMINS/MINERALS TABLET PO SCH (07:59)
[2021-02-11] MEDS: METOPROLOL TARTRATE 25 MG TAB PO SCH ×2 (07:59→20:54)
[2021-02-11] MEDS: GUAIFENESIN ER 600 MG TABLET PO SCH ×2 (07:59→20:54)
[2021-02-11] MEDS: APIXABAN 5 MG TABLET PO SCH ×2 (07:59→20:54)
[2021-02-11] MEDS: THIAMINE 100MG TABLET PO SCH (07:59)
[2021-02-11] MEDS: LISINOPRIL 20 MG TABLET PO SCH (08:00)
[2021-02-11] MEDS: FOLIC ACID 1 MG TABLET PO SCH (08:02)
[2021-02-11 13:07] VITALS: BP 138/78
[2021-02-11] MEDS: LORazepam 2 MG/ML, 1ML IV PRN ×2 (16:54→21:13)
[2021-02-11 19:50] VITALS: BP 133/72
[2021-02-12 00:20] VITALS: BP 177/110
[2021-02-12] MEDS: DILTIAZEM 30 MG TABLET PO SCH ×3 (00:23→17:07)
[2021-02-12] MEDS: ALBUTEROL/IPRATROPIUM 2.5MG/0.5MG, 3 ML NPPB SCH ×3 (02:11→20:30)
[2021-02-12 04:39] LABS: ANION GAP 7 mmol/L (5-15); CALCIUM 8.6 mg/dL (8.5-10.1); CHLORIDE 105 mmol/L (98-107); CREATININE 0.63 mg/dL (0.7-1.3)
[2021-02-12 04:45] LABS: BASOPHILS % (AUTO) 1 % (0-1); EOSINOPHILS % (AUTO) 1 % (1-7); LYMPHOCYTES % (AUTO) 19 % (22-44); MEAN CORPUSCULAR HEMOGLOBIN 32.7 pg (27.5-34.5); MEAN CORPUSCULAR HGB CONC 33.9 g/dL (33.2-36.2); MEAN PLATELET VOLUME 8.6 fL (7.4-10.4); MONOCYTES % (AUTO) 12 % (2-9); NEUTROPHILS % (AUTO) 68 % (42-75); PLATELET COUNT 152 x10^3/uL (130-400); RED BLOOD COUNT 3.98 x10^6/uL (4.38-5.82); RED CELL DISTRIBUTION WIDTH 16.2 % (9.4-14.8)
[2021-02-12 06:57] VITALS: BP 164/97
[2021-02-12] MEDS: THIAMINE 100MG TABLET PO SCH (08:22)
[2021-02-12] MEDS: METOPROLOL TARTRATE 25 MG TAB PO SCH ×2 (08:22→21:54)
[2021-02-12] MEDS: MULTIVITAMINS/MINERALS TABLET PO SCH (08:22)
[2021-02-12] MEDS: FOLIC ACID 1 MG TABLET PO SCH (08:22)
[2021-02-12] MEDS: APIXABAN 5 MG TABLET PO SCH ×2 (08:22→21:55)
[2021-02-12] MEDS: GUAIFENESIN ER 600 MG TABLET PO SCH ×2 (08:22→21:55)
[2021-02-12] MEDS: LISINOPRIL 20 MG TABLET PO SCH (08:23)
[2021-02-12] MEDS ORDERED: LORazepam 1MG TABLET PO ONE (08:30)
[2021-02-12 13:47] VITALS: BP 170/96
[2021-02-12 18:33] VITALS: BP 154/76
[2021-02-13 01:03] VITALS: BP 169/96
[2021-02-13] MEDS: DILTIAZEM 30 MG TABLET PO SCH ×3 (01:21→16:18)
[2021-02-13 06:52] VITALS: BP 156/97
[2021-02-13] MEDS: ALBUTEROL/IPRATROPIUM 2.5MG/0.5MG, 3 ML NPPB SCH ×2 (07:24→20:40)
[2021-02-13 09:45] VITALS: BP 122/81
[2021-02-13] MEDS: MULTIVITAMINS/MINERALS TABLET PO SCH (09:46)
[2021-02-13] MEDS: METOPROLOL TARTRATE 25 MG TAB PO SCH ×2 (09:46→21:18)
[2021-02-13] MEDS: FOLIC ACID 1 MG TABLET PO SCH (09:46)
[2021-02-13] MEDS: GUAIFENESIN ER 600 MG TABLET PO SCH ×2 (09:46→21:19)
[2021-02-13] MEDS: THIAMINE 100MG TABLET PO SCH (09:46)
[2021-02-13] MEDS: APIXABAN 5 MG TABLET PO SCH ×2 (09:46→21:19)
[2021-02-13] MEDS: LISINOPRIL 20 MG TABLET PO SCH (09:46)
[2021-02-13] MEDS: GABAPENTIN 100 MG CAPSULE PO SCH ×3 (11:12→21:19)
[2021-02-13 12:28] VITALS: BP 147/90
[2021-02-13 18:53] VITALS: BP 140/84
[2021-02-14 01:05] VITALS: BP 182/109
[2021-02-14] MEDS: DILTIAZEM 30 MG TABLET PO SCH ×2 (01:09→08:39)
[2021-02-14] MEDS ORDERED: ENALAPRILAT 1.25 MG/ML, 2ML IV PRN ×2 (01:30→09:00)
[2021-02-14] MEDS ORDERED: MELATONIN 5 MG TABLET PO PRN (01:30)
[2021-02-14] MEDS ORDERED: ENALAPRILAT 1.25 MG/ML, 1ML ONE ×2 (01:40→03:10)
[2021-02-14 02:45] VITALS: BP 167/107
[2021-02-14] MEDS ORDERED: ENALAPRILAT 1.25 MG/ML, 2ML IV ONE (03:00)
[2021-02-14 03:56] VITALS: BP 165/95
[2021-02-14 05:46] VITALS: BP 168/89
[2021-02-14 07:44] VITALS: BP 179/106
[2021-02-14] MEDS: APIXABAN 5 MG TABLET PO SCH (08:34)
[2021-02-14] MEDS: GABAPENTIN 100 MG CAPSULE PO SCH (08:34)
[2021-02-14] MEDS: GUAIFENESIN ER 600 MG TABLET PO SCH (08:36)
[2021-02-14] MEDS: FOLIC ACID 1 MG TABLET PO SCH (08:36)
[2021-02-14] MEDS: THIAMINE 100MG TABLET PO SCH (08:38)
[2021-02-14] MEDS: MULTIVITAMINS/MINERALS TABLET PO SCH (08:39)
[2021-02-14] MEDS: METOPROLOL TARTRATE 25 MG TAB PO SCH (08:41)
[2021-02-14] MEDS ORDERED: AMLODIPINE 5 MG TABLET PO SCH (09:00)
[2021-02-14] MEDS ORDERED: LISINOPRIL 40 MG TABLET PO SCH (09:00)
[2021-02-14] MEDS: ALBUTEROL/IPRATROPIUM 2.5MG/0.5MG, 3 ML NPPB SCH (09:39)
[2021-02-14 13:19] VITALS: BP 146/98
[2021-02-14] MEDS ORDERED: GABA-826 PO (13:34)
[2021-02-14] MEDS ORDERED: APIX5TAB PO (13:34)
[2021-02-14] MEDS ORDERED: ATOR40TA78 PO (13:34)
[2021-02-14] MEDS ORDERED: METO25TA35 PO (13:34)
[2021-02-14] MEDS ORDERED: AMLO-150 PO (13:34)
[2021-02-14] MEDS ORDERED: LISI40TA9 PO (13:34)
[2021-02-14] MEDS ORDERED: DILT30TA33 PO (13:34)
== END 2021-02-14 15:15 | disposition home or self-care (01) | DRG 201 ==
LOC: ED 12:04 → SUATTDRO 13:23 → EDIP 13:44 → 4WST 15:52 → CCU 18:16 → 4WST 22:06 → 3N 02-12 09:41
PROVIDERS: ADMIT Family Medicine; ATTEND Family Medicine
DX: I48.0 Paroxysmal atrial fibrillation (principal); J96.21 Acute and chronic respiratory failure with hypoxia; D68.69 Other thrombophilia; I11.0 Hypertensive heart disease with heart failure; I50.32 Chronic diastolic (congestive) heart failure; Z99.81 Dependence on supplemental oxygen; F17.210 Nicotine dependence, cigarettes, uncomplicated; F41.9 Anxiety disorder, unspecified; J44.1 Chronic obstructive pulmonary disease with (acute) exacerbation; F10.129 Alcohol abuse with intoxication, unspecified; Y90.9 Presence of alcohol in blood, level not specified; G40.901 Epilepsy, unspecified, not intractable, with status epilepticus; R26.89 Other abnormalities of gait and mobility; Y90.0 Blood alcohol level of less than 20 mg/100 ml; F10.139 Alcohol abuse with withdrawal, unspecified; E87.6 Hypokalemia; Z59.0 Homelessness; Z79.01 Long term (current) use of anticoagulants; Z79.899 Other long term (current) drug therapy
CPT/HCPCS: 36415; 70450; 71045; 80048; 80053; 80320; 82962; 83690; 83735; 84100; 85025; 87081; 93005; 94640; 96361; 96374; G0378; J1953; J3411; J7509; G0480; J2060; J7030; J7512; Q0177

== ENCOUNTER 2021-04-18 20:31 | Inpatient (IN) | payer MEDICAID ==
[~2021-04-18] VITALS: Ht 193 cm; Wt 93.4 kg
[~2021-04-18 20:31] MED LIST changes: +DILT30TA33 PO; +GABA-826 PO; +LISI40TA9 PO; +POTA-143 PO; -POTA20TA6 PO
[2021-04-18] MEDS ORDERED: ALBUTEROL/IPRATROPIUM 2.5MG/0.5MG, 3 ML NPPB ONE (21:00)
[2021-04-18] MEDS ORDERED: ALBUTEROL/IPRATROPIUM 2.5MG/0.5MG, 3 ML ONE (21:01)
--- NOTE | 2021-04-18 21:10 | NUR ---
MEDICATED PER EMAR
--- NOTE | 2021-04-18 21:18 | NUR ---
POST BREATHING TREATMENT BREATH SOUNDS MORE AUDIBLE-ESPECIALLY TO BASES
[2021-04-18 21:41] LABS: BASOPHILS % (AUTO) 1 % (0-1); EOSINOPHILS % (AUTO) 6 % (1-7); LYMPHOCYTES % (AUTO) 34 % (22-44); MEAN CORPUSCULAR HGB CONC 34.1 g/dL (33.2-36.2); MEAN PLATELET VOLUME 8.5 fL (7.4-10.4); MONOCYTES % (AUTO) 8 % (2-9); NEUTROPHILS % (AUTO) 52 % (42-75); PLATELET COUNT 231 x10^3/uL (130-400); RED CELL DISTRIBUTION WIDTH 15.4 % (9.4-14.8)
[2021-04-18 21:52] LABS: ALBUMIN 2.8 g/dL (3.4-5.0); ANION GAP 8 mmol/L (5-15); CALCIUM 7.9 mg/dL (8.5-10.1); CHLORIDE 104 mmol/L (98-107); CREATININE 0.98 mg/dL (0.7-1.3)
[2021-04-18] MEDS ORDERED: LACTATED RINGERS 1,000 ML IVBOLUS ONE (22:30)
--- NOTE | 2021-04-18 23:27 | NUR ---
report from Dany calderon
[2021-04-19] VITALS (7 sets, daily range): BP systolic 148–180; BP diastolic 85–113
--- NOTE | 2021-04-19 00:29 | NUR ---
COVID SWAB COLLECTED AND WALKED TO LAB
--- NOTE | 2021-04-19 01:30 | NUR ---
pt resting, pending admission and bed on unit.
--- NOTE | 2021-04-19 02:26 | NUR ---
report given to christopher calderon
[2021-04-19] MEDS ORDERED: GUAIFENESIN/DM 200-20MG, 10ML UDC PO PRN (02:30)
[2021-04-19] MEDS ORDERED: POLYETHYLENE GLYCOL 17 GM PACKET PO PRN (02:30)
[2021-04-19] MEDS ORDERED: ENOXAPARIN 40 MG/0.4 ML SQ SCH (02:30)
[2021-04-19] MEDS ORDERED: ACETAMINOPHEN 500 MG TABLET PO PRN (02:30)
[2021-04-19] MEDS ORDERED: MELATONIN 5 MG TABLET PO PRN (02:30)
[2021-04-19] MEDS ORDERED: morphine SULFATE 10 MG/ML, 1ML IVPush PRN (02:30)
[2021-04-19] MEDS ORDERED: ONDANSETRON 2MG/ML, 2ML IVPush PRN (02:30)
--- NOTE | 2021-04-19 02:48 | NUR ---
REPORT TO RAKAN GR.
[2021-04-19 03:01] LABS: TROPONIN I < 0.015 ng/mL (0.000-0.045)
[2021-04-19] MEDS ORDERED: LORazepam 0.5MG TABLET PO PRN ×2 (06:00)
[2021-04-19] MEDS ORDERED: LORazepam 1MG TABLET PO PRN ×3 (06:00→14:00)
[2021-04-19] MEDS ORDERED: LORazepam 2 MG/ML, 1ML IV PRN ×9 (06:00→14:00)
[2021-04-19] MEDS: METOPROLOL TARTRATE 25 MG TAB PO SCH ×2 (06:14→15:18)
[2021-04-19] MEDS ORDERED: LOVENOX/APIXABAN MC SCH (06:30)
[2021-04-19 09:13] LABS: TROPONIN I < 0.015 ng/mL (0.000-0.045)
[2021-04-19] MEDS: LORazepam 1MG TABLET PO PRN ×8 (09:50→21:13)
[2021-04-19] MEDS: APIXABAN 5 MG TABLET PO SCH ×2 (09:50→21:13)
[2021-04-19] MEDS: GABAPENTIN 100 MG CAPSULE PO SCH ×3 (09:50→21:13)
[2021-04-19] MEDS ORDERED: FUROSEMIDE 40 MG/4 ML ONE (13:29)
[2021-04-19] MEDS ORDERED: FUROSEMIDE 40 MG/4 ML IV ONE (13:30)
[2021-04-19] MEDS ORDERED: LORazepam 1MG TABLET ONE (14:01)
[2021-04-19] MEDS: LABETALOL 5MG/ML, 20ML IVPush PRN (16:24)
[2021-04-20 00:33] VITALS: BP 150/108
[2021-04-20] MEDS: LABETALOL 5MG/ML, 20ML IVPush PRN (00:54)
[2021-04-20] MEDS: LORazepam 1MG TABLET PO PRN ×3 (00:54→20:01)
[2021-04-20 01:49] VITALS: BP 165/92
[2021-04-20 05:32] VITALS: BP 148/97
[2021-04-20] MEDS: METOPROLOL TARTRATE 25 MG TAB PO SCH ×2 (05:33→18:02)
[2021-04-20 05:55] LABS: BASOPHILS % (AUTO) 1 % (0-1); EOSINOPHILS % (AUTO) 1 % (1-7); LYMPHOCYTES % (AUTO) 20 % (22-44); MEAN CORPUSCULAR HEMOGLOBIN 32.4 pg (27.5-34.5); MEAN CORPUSCULAR HGB CONC 33.3 g/dL (33.2-36.2); MEAN PLATELET VOLUME 8.6 fL (7.4-10.4); MONOCYTES % (AUTO) 5 % (2-9); NEUTROPHILS % (AUTO) 73 % (42-75); PLATELET COUNT 167 x10^3/uL (130-400); RED BLOOD COUNT 3.99 x10^6/uL (4.38-5.82); RED CELL DISTRIBUTION WIDTH 14.9 % (9.4-14.8)
[2021-04-20 06:10] LABS: ANION GAP 6 mmol/L (5-15); CALCIUM 8.7 mg/dL (8.5-10.1); CHLORIDE 104 mmol/L (98-107)
[2021-04-20 06:11] LABS: CREATININE 0.78 mg/dL (0.7-1.3)
[2021-04-20 07:20] VITALS: BP 148/92
[2021-04-20] MEDS: LORazepam 0.5MG TABLET PO PRN ×2 (08:54→11:42)
[2021-04-20] MEDS: LISINOPRIL 40 MG TABLET PO SCH (08:54)
[2021-04-20] MEDS: ATORVASTATIN 40 MG TABLET PO SCH (08:54)
[2021-04-20] MEDS: AMLODIPINE 5 MG TABLET PO SCH (08:54)
[2021-04-20] MEDS: GABAPENTIN 100 MG CAPSULE PO SCH ×3 (08:54→20:01)
[2021-04-20] MEDS: APIXABAN 5 MG TABLET PO SCH ×2 (08:54→20:01)
[2021-04-20] MEDS: POTASSIUM CHLORIDE 20 MEQ PACKET PO SCH ×2 (08:54→16:01)
[2021-04-20] MEDS ORDERED: FUROSEMIDE 40 MG TABLET PO ONE (09:00)
[2021-04-20 13:51] VITALS: BP 144/87
[2021-04-20 20:08] VITALS: BP 134/65
[2021-04-21] MEDS: LORazepam 1MG TABLET PO PRN ×5 (00:19→22:24)
[2021-04-21 02:10] VITALS: BP 146/84
[2021-04-21 05:38] VITALS: BP 148/98
[2021-04-21] MEDS: METOPROLOL TARTRATE 25 MG TAB PO SCH ×2 (05:41→17:12)
[2021-04-21 06:19] LABS: ANION GAP 5 mmol/L (5-15); CALCIUM 8.6 mg/dL (8.5-10.1); CHLORIDE 102 mmol/L (98-107); CREATININE 0.75 mg/dL (0.7-1.3)
[2021-04-21] MEDS: APIXABAN 5 MG TABLET PO SCH ×2 (08:26→19:45)
[2021-04-21] MEDS: ATORVASTATIN 40 MG TABLET PO SCH (08:26)
[2021-04-21] MEDS: AMLODIPINE 5 MG TABLET PO SCH (08:26)
[2021-04-21] MEDS: LISINOPRIL 40 MG TABLET PO SCH (08:26)
[2021-04-21] MEDS: GABAPENTIN 100 MG CAPSULE PO SCH ×3 (08:26→19:45)
[2021-04-21 08:31] VITALS: BP 150/90
[2021-04-21 13:34] VITALS: BP 151/95
[2021-04-21 18:48] VITALS: BP 135/88
[2021-04-22 01:22] VITALS: BP 148/88
[2021-04-22] MEDS: LORazepam 1MG TABLET PO PRN (05:45)
[2021-04-22] MEDS: METOPROLOL TARTRATE 25 MG TAB PO SCH ×2 (05:48→17:32)
[2021-04-22 08:29] VITALS: BP 137/92
[2021-04-22] MEDS: ATORVASTATIN 40 MG TABLET PO SCH (09:19)
[2021-04-22] MEDS: AMLODIPINE 5 MG TABLET PO SCH (09:19)
[2021-04-22] MEDS: APIXABAN 5 MG TABLET PO SCH ×2 (09:19→20:08)
[2021-04-22] MEDS: GABAPENTIN 100 MG CAPSULE PO SCH ×4 (09:19→20:08)
[2021-04-22] MEDS: LISINOPRIL 40 MG TABLET PO SCH (09:19)
[2021-04-22 13:47] VITALS: BP 150/96
[2021-04-22] MEDS: LORazepam 0.5MG TABLET PO PRN (17:42)
[2021-04-22 20:02] VITALS: BP 154/104
[2021-04-22] MEDS: LABETALOL 5MG/ML, 20ML IVPush PRN (20:08)
[2021-04-23 02:09] VITALS: BP 154/91
[2021-04-23] MEDS: METOPROLOL TARTRATE 25 MG TAB PO SCH (06:14)
[2021-04-23 07:32] VITALS: BP 137/85
[2021-04-23] MEDS: LISINOPRIL 40 MG TABLET PO SCH (10:18)
[2021-04-23] MEDS: ATORVASTATIN 40 MG TABLET PO SCH (10:18)
[2021-04-23] MEDS: GABAPENTIN 100 MG CAPSULE PO SCH (10:18)
[2021-04-23] MEDS: APIXABAN 5 MG TABLET PO SCH (10:18)
[2021-04-23] MEDS: AMLODIPINE 5 MG TABLET PO SCH (10:18)
[2021-04-23] MEDS ORDERED: LISI40TA9 PO (11:48)
[2021-04-23] MEDS ORDERED: ATOR40TA78 PO (11:48)
[2021-04-23] MEDS ORDERED: AMLO-150 PO (11:48)
[2021-04-23] MEDS ORDERED: METO25TA35 PO (11:48)
[2021-04-23] MEDS ORDERED: APIX5TAB PO (11:48)
[2021-04-23] MEDS ORDERED: GABA-826 PO (11:48)
== END 2021-04-23 13:50 | disposition home or self-care (01) | DRG 133 ==
LOC: ED 20:54 → EDIP 23:54 → 5SO 04-19 04:33 → 3N 04-20 20:35
PROVIDERS: ADMIT Internal Medicine; ATTEND Family Medicine
DX: J96.01 Acute respiratory failure with hypoxia (principal); I50.33 Acute on chronic diastolic (congestive) heart failure; D68.69 Other thrombophilia; I48.20 Chronic atrial fibrillation, unspecified; J44.9 Chronic obstructive pulmonary disease, unspecified; G62.9 Polyneuropathy, unspecified; E78.5 Hyperlipidemia, unspecified; F10.139 Alcohol abuse with withdrawal, unspecified; I11.0 Hypertensive heart disease with heart failure; Z20.822 Contact with and (suspected) exposure to COVID-19; G47.00 Insomnia, unspecified; Z60.2 Problems related to living alone; Z83.3 Family history of diabetes mellitus; Z79.01 Long term (current) use of anticoagulants; Z91.14 Patient's other noncompliance with medication regimen; Z79.899 Other long term (current) drug therapy
CPT/HCPCS: 36415; 71045; 80048; 82040; 82728; 83615; 83880; 84145; 84443; 84484; 85025; 87040; 93005; 96360; 96361; 99285; G0378; J1650; J1940; U0005; J7120; J7512; U0003